=== PATIENT | female | born 2000 | race Hispanic/Latino ===

== ENCOUNTER 2024-07-01 14:42 | Emergency (ER) | payer OTHER ==
--- OUTSIDE RECORDS SUMMARY | 2024-07-01 14:51 | XMS REPORT | Continuity of Care Document ---
Author Name Unknown Address [address] [facility] [address] [place] [address] [facility] thconnect Address [address] [facility] [place] [address] Care Team Providers Care Hybrid Tester Name Role Phone PCP, NO Primary Care Physician Unavailab DEBRA Ramirez Attending Clinician Unavailable DEBRA SLOAN Attending Clinician Unavailable PRAFUL SHETTY Attending Clinician Unavailable Narinder CHRISTENSEN, Juan Katz Attending Clinician Unavailrene macedo Nurse, [facility] Attending Clinician Un available Debra Sloan MD Attending Clinician [phone] Doctor Unassigned, [place] Attending Clinician U navailable Pob, [facility] Main Attending Clinician Unavailabl e 2, [facility] Attending Clinician Unavailable Lori Amezcua DNP Attending Clinician [phone] LORI AMEZCUA Attending Clinician Unavailable ANTONIETA PASCUAL Attending Clinician Unavailable ANTONIETA PASCUAL Attending Clinician Unavailable ANTONIETA PASCUAL Attending Clinician Unavailable Ultrasound, Ang-Mfm Attending Clinician Unavaila Antonieta Randhawa MD Attending Clinician [phone] EDI SILVA Attending Clinician Unavailable EDI SILVA Attending Clinician Unavailable Edi Silva MD Attending Clinician [phone] Doctor Unassigned, [place] Attending Clinician U navailable 2, [facility] Attending Clinician Unavailable Razia Vargas Attending Clinician [phone] RAZIA HE Attending Clinician Unavailabl NIKOLAS Goodrich Attending Clinician Unavailable Lab, [facility] Attending Clinician Unavailable ASHOK TOSCANO Attending Clinician Unavailabl ASHOK Jim Attending Clinician Unavailabl GENARO Sharp Attending Clinician Unavailable MADDI DEMPSEY Attending Clinician Unavailable Maddi Way Attending Clinician [phone] JOHANNA ESQUIVEL Attending Clinician Unavailabl EDI Dos Santos Attending Clinician Unavail able Rickyjerod, Mrs. Abbott Attending Clinician Unava ilable CHITRA QUINTANA Attending Clinician UnavailCHITRA Kong Attending Clinician Unavaila ble Lab, Ang - Db Attending Clinician Unavailable Praful Shetty MD Attending Clinician [phone] SP RUSSO Attending Clinician Unavailable Sp Russo MD Attending Clinician [phone] Leona Calixto MA Attending Clinician UnavailMEKHI Ferrari III Attending Clinician Unavailtori Berry III, MD, James C Attending Clinician [phone] Unknown, Attending Attending Clinician Unavailab VI Ricks Attending Clinician Unavailable Vi Pedro PA-C Attending Clinician [phone] Dell Sin CRNA Attending Clinician [phone] Alexander Gold MD Attending Clinician [phone] Only, [facility] Test Attending Clinician Unavailable Pob, [facility] Main Attending Clinician Unavailabl e Ultrasound, [facility] M[facility] Attending Clinician Unavaila freddie Rider MD, Edel Attending Clinician [phone] Jocelynn Cornejo Attending Clinician [phone] ADOLFO SILVA Attending Clinician Unavail able Helen CHRISTENSEN, Goldie Katz Attending Clinician Unavailab Soledad Calixto Attending Clinician [phone] Benjy DAVILA, Viviana Attending Clinician [phone] VIVIANA POOL Attending Clinician Unavailable DEBRA SLOAN Admitting Clinician Unavailable PRAFUL SHETTY Admitting Clinician Unavailable Debra Sloan MD Admitting Clinician [phone] SP RUSSO Admitting Clinician Unavailable Praneeth DAVILA, Praful Avalos Admitting Clinician [phone] Payers Payer Name Policy Type Policy Number Effective Date Expirati on Date Source [facility] [id number] 2023 00:00:00 [employer] [id number] 2021 00:00:00 [facility] [id number] 2023 00:00:00 Problems Condition Name Condition Details Condition Category Status Onset Date Resolution Date Last Treatment Date Treating Clinician Comments Source Surgery, elective Surgery, elective Disease Active 2023-08 0 00:00: 00 [facility] Liveborn , of ortez , born in hospital by delivery Liveborn , of ortez , born in hospital by delivery Disease Active 2023-08 0 00:00: 00 [facility] 31 weeks gestation of 31 weeks gestation of Disease Active 04-28 00:00: 00 [facility] 39 weeks gestation of 39 weeks gestation of Disease Active 30 00:00: 00 [facility] High-risk in third trimester High-risk in third trimester Disease Active 5-02 00:00: 00 [facility] 14 weeks gestation of 14 weeks gestation of Disease Active 0 5-02 00:00: 00 [facility] Previous delivery affecting , antepartum Previous delivery affecting , antepartum Disease Active 5-02 00:00: 00 [facility] Obesity (BMI 30-39.9) Obesity (BMI 30-39.9) Disease Active 3-29 00:00: 00 [facility] Anemia of mother in , antepartum Anemia of mother in , antepartum Disease Active 2020-08 2-27 00:00: 00 [facility] Rectal hemorrhage Problem Active TMR Contusion of head Problem Inactiv e TMR Hemorrhoid s Problem Inactiv e TMR Neck pain Problem Inactiv e TMR Problem Inactiv e TMR No known active problems No known active problems Disease [facility] COVID-19 virus infection COVID-19 virus infection Disease Resolve d 9-03 00:00: 00 2024-01-28 00:00:00 2024-01-28 11:20:16 [facility] BMI 31.0-31.9, adult BMI 31.0-31.9, adult Disease Resolve d 0 1-03 00:00: 00 2023-12-30 00:00:00 2023-12-30 10:01:18 [facility] Nexplanon in place Nexplanon in place Disease Resolve d 0 2-03 00:00: 00 2023-11-26 00:00:00 2023-11-26 22:34:07 [facility] Encounter for initial prescripti on of implantabl e subdermal contracept aixa Encounter for initial prescripti on of implantabl e subdermal contracept aixa Disease Resolve d 2021-0 1-10 00:00: 00 2023-11-26 00:00:00 2023-11-26 22:34:09 [facility] Anemia of mother in , antepartum Anemia of mother in , antepartum Disease Resolve d 2020-08 2-27 00:00: 00 2021-10-01 00:00:00 2021-10-01 13:48:10 [facility] Liveborn infant, of ortez , born in hospital by delivery Liveborn , of ortez , born in hospital by delivery Disease Resolve d 2021-0 1-12 00:00: 00 2021-09-17 00:00:00 2021-09-17 10:29:28 [facility] 39 weeks gestation of 39 weeks gestation of Disease Resolve d 2021-0 1-10 00:00: 00 2021-09-17 00:00:00 2021-09-17 10:29:28 [facility] Encounter for supervisio n of normal first in third trimester Encounter for supervisio n of normal first in third trimester Disease Resolve d 2020-0 9-03 00:00: 00 2021-09-17 00:00:00 2021-09-17 10:29:28 [facility] E-coli UTI E-coli UTI Disease Resolve d 2020-08 0-01 00:00: 00 2021-09-08 00:00:00 2021-09-08 10:46:02 [facility] Allergies, Adverse Reactions, Alerts Allergy Name Allergy Type Status Severity Reaction(s) Onset Date Inactive Date Treating Clinician Comments Source NO KNOWN ALLERGIE S Drug Class Active [facility] Social History Social Habit Start Date Stop Date Quantity Comments Source ASSERTION 2023-10-03 00:00:00 [facility] of tobacco use TMR Alcoholic beverage intake 2024-06-21 00:00:00 2024-06-21 00:00:00 Lifetime non-drinker (finding) [facility] History of Social function 2023-12-30 00:00:00 2023-12-30 00:00:00 [facility] Alcohol intake 2023-11-26 00:00:00 2023-11-26 00:00:00 Lifetime non-drinker (finding) [facility] Exposure to SARS-CoV-2 (event) 2022-11-13 00:00:00 2022-11-23 13:38:00 Not sure [facility] Tobacco use and exposure 2022-07-16 00:00:00 2022-07-16 00:00:00 Smokeless tobacco non-user [facility] Sex Assigned At 2000 00:00:00 2000 00:00:00 Female TMR Smoking Status Start Date Stop Date Source Unknown if ever smoked [facility] Smokes tobacco daily (finding) 2023-12-26 23:02:00 TMR Never smoked tobacco [facility] Medications Ordered Medication Name Filled Medication Name Start Date Stop Date Current Medication? Ordering Clinician Indication Dosage Frequency Signature (SIG) Comments Components Source ibuprofen (IBU) tablet 800 mg 2023-08 14:00: 00 Yes 800mg 800 mg, Oral, Q8H ABX, First dose on Wed06/21/24 at 0900, Until Discontinu ed, Routine [facility] docusate (COLACE) capsule 200 mg 2023-08 14:00: 00 Yes 200mg 200 mg, Oral, DAILY, First dose on Wed06/21/24 at 0900, Until Discontinu ed, Routine [facility] vitamin w/FA tablet 2023-08 00:00: 00 Yes [id number] 1{tbl} Take 1 tablet by mouth in the morning. [facility] docusate 100 mg capsule 2023-08 00:00: 00 Yes [id number] 200mg Take 2 capsules by mouth once daily as needed for Constipati on. [facility] ferrous sulfate 325 mg (65 mg iron) tablet 2023-08 00:00: 00 Yes [id number] 325mg Take 1 tablet by mouth in the morning. [facility] ibuprofen 800 mg tablet 2023-08 00:00: 00 Yes [id number] 800mg Take 1 tablet by mouth every 8 (eight) hours as needed (pain). Take with food or milk. [facility] acetaminoph en 500 mg tablet 2023-08 00:00: 00 Yes [id number] 1000mg Take 2 tablets by mouth every 8 (eight) hours as needed for Pain. [facility] gabapentin 300 mg capsule 2023-08 00:00: 00 Yes [id number] 300mg Take 1 capsule by mouth in the morning and 1 capsule at noon and 1 capsule in the evening. [facility] oxyCODONE 5 mg immediate release tablet 2023-08 00:00: 00 06-29 04:59 :00 Yes [id number] 5mg Take 1 tablet by mouth every 6 (six) hours as needed (pain) for up to 7 days. Indication s: acute pain [facility] gabapentin (NEURONTIN) capsule 300 mg 2023-08 19:00: 00 Yes 300mg 300 mg, Oral, TID, First dose on Wed06/20/24 at 1400, Until Discontinu ed, Routine [facility] simethicone (GAS RELIEF (SIMETHICON E)) chewable tablet 160 mg 2023-08 19:00: 00 Yes 160mg 160 mg, Oral, TID, First dose on Wed06/20/24 at 1400, Until Discontinu ed, Routine [facility] acetaminoph en (TYLENOL) tablet 1,000 mg 2023-08 18:00: 00 Yes 1000mg 1,000 mg, Oral, Q8H ABX, First dose on Wed06/20/24 at 1300, Until Discontinu ed, Routine [facility] lactated ringers IV infusion 1,000 mL 2023-08 17:15: 00 06-20 17:52 :49 No 1000mL at 125 mL/hr, 1,000 mL, IV Infusion, ONCE, 1 dose, On Wed06/20/24 at 1215, Routine [facility] oxyCODONE immediate release tablet 5 mg 2023-08 17:02: 24 Yes 5mg 5 mg, Oral, Q6HPRN, Starting on Wed06/20/24 at 1202, Until Discontinu ed, Routine, Pain (scale 7-10), economics faculty member approving Restricted medication : DEBRA SLOAN [facility] diphenhydrA MINE (BENADRYL) injection 25 mg 2023-08 16:45: 49 Yes 25mg [facility] diphenhydrA MINE (BENADRYL) tablet 25 mg 2023-08 16:45: 49 Yes 25mg [facility] ondansetron (ZOFRAN (PF)) injection 4 mg 2023-08 16:45: 49 Yes 4mg [facility] bisacodyL (DULCOLAX) suppository 10 mg 2023-08 16:45: 49 Yes 10mg [facility] magnesium hydroxide (MILK OF MAGNESIA) 400 mg/5 mL suspension 30 mL 2023-08 16:45: 49 Yes 30mL [facility] lactated ringers IV infusion 1,000 mL 2023-08 16:45: 49 Yes 1000mL [facility] sodium chloride 0.9 % irrigation solution 2023-08 14:20: 00 Yes PRN, Starting on Wed06/20/24 at 0920, Until Discontinu ed, Intra-op [facility] acetaminoph en (TYLENOL) tablet 650 mg 2023-08 11:15: 00 06-20 12:02 :00 No 650mg 650 mg, Oral, ONCE, 1 dose, On Wed06/20/24 at 0615, Routine [facility] lactated ringers IV infusion 1,000 mL 2023-08 11:15: 00 06-20 17:02 :43 No 1000mL at 125 mL/hr, 1,000 mL, IV Infusion, CONTINUOUS , Starting on Wed06/20/24 at 0615, Until Wed06/20/24 at 1202, Routine [facility] ceFAZolin (ANCEF) 2,000 mg in NaCl 0.9% (NS) 100 mL MINI-BAG 2023-08 11:09: 55 06-20 13:18 :00 No 2000mg 2,000 mg, IV Piggyback, O.R. HOLDING ONCE, 1 dose, Starting on Wed06/20/24 at 0609, Until Wed06/20/24 at 0818, Administer over 30 Minutes, 100 mL, Reason for Anti-Infec tive: Surgical Prophylaxi s, Surgical Prophylaxi s: DROP TESTER, Duration of therapy: within 24 hours of surgery [facility] sodium citrate-cit que acid (BICITRA) 500-334 mg/5 mL solution 30 mL 2023-08 11:09: 55 06-20 12:48 :00 No 30mL 30 mL, Oral, PRE-PROCED URE ONCE, 1 dose, Starting on Wed06/20/24 at 0609, Until Wed06/20/24 at 0748, Routine, Surgery/Pr ocedure [facility] ferrous sulfate 325 mg (65 mg iron) tablet 05-12 00:00: 00 06-21 00:00 :00 No [id number] 325mg Take 1 tablet by mouth in the morning. [facility] vit w/iron fumarate and FA ( VITAMIN WITH MINERALS) tablet 12-29 00:00: 00 06-21 00:00 :00 No [id number] 1{tbl} Take 1 tablet by mouth in the morning. [facility] Iron Pills 12-25 23:04: 00 No TMR Vit#96/Ferr ous Fum/Fa ( Vitamin) 1 Each TABLET 12-25 23:04: 00 No 1 Daily TMR vits62/FA/o m3/dha/epa ( GUMMY ORAL) 11-25 14:41: 37 12-29 00:00 :00 No Take by mouth. [facility] etonogestre L (NEXPLANON) implant 68 mg 11-23 20:00: 00 11-23 19:03 :00 No [id number] 68mg [facility] CITRANATAL ASSURE 35 mg iron-1 mg -50 mg-300 mg combo pack 09-15 00:00: 00 Yes [facility] LO LOESTRIN 09-08-0909-15 00:00: 00 No CITRANATAL ASSURE 35 mg iron-1 mg -50 mg-300 mg combo pack 09-15 00:00: 00 11-25 00:00 :00 No [facility] ibuprofen 800 mg tablet 2021-08 00:00: 00 11-25 00:00 :00 No Univers [facility] etonogestre L (NEXPLANON) implant 68 mg 10-02 21:15: 00 10-02 20:06 :00 No [id number] 68mg Univer [facility] vitamin w/FA tablet 09-12 00:00: 00 Yes [id number] 1{tbl} Take 1 tablet by mouth daily. [facility] acetaminoph en 325 mg tablet 09-12 00:00: 00 11-25 00:00 :00 No [id number] 650mg Take 2 tablets by mouth every 6 (six) hours as needed for Pain (scale 1-3) or Pain (scale 4-6). [facility] vitamin w/FA tablet 09-12 00:00: 00 11-25 00:00 :00 No [id number] 1{tbl} Take 1 tablet by mouth daily. [facility] ferrous sulfate 325 mg (65 mg iron) tablet 09-12 00:00: 00 11-25 00:00 :00 No [id number] 325mg Take 1 tablet by mouth 2 (two) times daily. [facility] ibuprofen 600 mg tablet 09-12 00:00: 00 09-11 00:00 :00 No [id number] 600mg Take 1 tablet by mouth every 6 (six) hours as needed (Pain). Take with food or milk. [facility] docusate calcium 240 mg capsule 09-12 00:00: 00 10-01 00:00 :00 No [id number] 240mg Take 1 capsule by mouth once daily as needed for Constipati on. [facility] ferrous sulfate (IRON, FERROUS SULFATE,) 325 mg (65 mg iron) tablet 2020-0816 00:00: 00 Yes [id number] 325mg Take 1 tablet by mouth 2 (two) times daily. [facility] cephALEXin (KEFLEX) capsule 500 mg 05-22 21:00: 00 05-22 20:18 :00 No 500mg 500 mg, Oral, ONCE, 1 dose, On Maryann 05/22/21 at 1600, GHANSHYAM
Re ason for Anti-Infec tive: Documented Infection< br>Documen chucho Infection Site: Urine
D uration of Therapy: 10 days [facility] cephALEXin (KEFLEX) 500 mg capsule 05-22 00:00: 00 06-02 04:59 :00 No [id number] 500mg Take 1 capsule by mouth 3 (three) times daily for 10 days. [facility] 25/iron fum/folic/d springer (-1 ORAL) 05-02 17:49: 16 Yes Take by mouth. [facility] 25/iron fum/folic/d springer (-1 ORAL) 05-02 12:49: 16 Yes Take by mouth. [facility] 25/iron fum/folic/d springer (-1 ORAL) 04-22 16:55: 54 Yes Take by mouth. [facility] Immunizations Ordered Immunization Name Filled Immunization Name Date Status Comments Source RSV, Bivalent Protein Subunit RSVprdF 2024-05-12 00:00:00 Completed [facility] RSV, Bivalent Protein Subunit RSVprdF 2024-05-12 00:00:00 Completed [facility] Flu Injectable MDCK Pres-Free (FLUCELVAX) 2024-04-28 00:00:00 Completed [facility] TDAP 2024-04-28 00:00:00 Completed Flu Injectable MDCK Pres-Free (FLUCELVAX) 2024-04-28 00:00:00 Completed [facility] TDAP 2024-04-28 00:00:00 Completed TDAP 2021-08-08 00:00:00 Completed [facility] Influenza Virus Vaccine Quad IM, Preserv and ABX Free 6 MO-64 YRS 2021-08-08 00:00:00 Completed [facility] TDAP 2021-08-08 00:00:00 Completed [facility] Influenza Virus Vaccine Quad IM, Preserv and ABX Free 6 MO-64 YRS 2021-08-08 00:00:00 Completed [facility] TDAP 2021-08-08 00:00:00 Completed [facility] Influenza Virus Vaccine Quad IM, Preserv and ABX Free 6 MO-64 YRS 2021-08-08 00:00:00 Completed [facility] TDAP 2021-08-08 00:00:00 Completed [facility] Influenza Virus Vaccine Quad IM, Preserv and ABX Free 6 MO-64 YRS 2021-08-08 00:00:00 Completed [facility] TDAP 2021-08-08 00:00:00 Completed [facility] Influenza Virus Vaccine Quad IM, Preserv and ABX Free 6 MO-64 YRS 2021-08-08 00:00:00 Completed [facility] TDAP 2021-08-08 00:00:00 Completed [facility] Influenza Virus Vaccine Quad IM, Preserv and ABX Free 6 MO-64 YRS 2021-08-08 00:00:00 Completed [facility] TDAP 2021-08-08 00:00:00 Completed [facility] Influenza Virus Vaccine Quad IM, Preserv and ABX Free 6 MO-64 YRS 2021-08-08 00:00:00 Completed [facility] TDAP 2021-08-08 00:00:00 Completed [facility] Influenza Virus Vaccine Quad IM, Preserv and ABX Free 6 MO-64 YRS 2021-08-08 00:00:00 Completed [facility] TDAP 2021-08-08 00:00:00 Completed [facility] Influenza Virus Vaccine Quad IM, Preserv and ABX Free 6 MO-64 YRS (FLUCELVAX) 2021-08-08 00:00:00 Completed TDAP 2021-08-08 00:00:00 Completed [facility] Influenza Virus Vaccine Quad IM, Preserv and ABX Free 6 MO-64 YRS (FLUCELVAX) 2021-08-08 00:00:00 Completed TDAP 2021-08-08 00:00:00 Completed [facility] Influenza Virus Vaccine Quad IM, Preserv and ABX Free 6 MO-64 YRS 2021-08-08 00:00:00 Completed [facility] TDAP 2021-08-08 00:00:00 Completed [facility] Influenza Virus Vaccine Quad IM, Preserv and ABX Free 6 MO-64 YRS 2021-08-08 00:00:00 Completed [facility] TDAP 2021-08-08 00:00:00 Completed [facility] Influenza Virus Vaccine Quad IM, Preserv and ABX Free 6 MO-64 YRS 2021-08-08 00:00:00 Completed [facility] TDAP 2021-08-08 00:00:00 Completed [facility] Influenza Virus Vaccine Quad IM, Preserv and ABX Free 6 MO-64 YRS 2021-08-08 00:00:00 Completed [facility] TDAP 2021-08-08 00:00:00 Completed [facility] Influenza Virus Vaccine Quad IM, Preserv and ABX Free 6 MO-64 YRS 2021-08-08 00:00:00 Completed [facility] TDAP 2021-08-08 00:00:00 Completed [facility] Influenza Virus Vaccine Quad IM, Preserv and ABX Free 6 MO-64 YRS 2021-08-08 00:00:00 Completed [facility] TDAP 2021-08-08 00:00:00 Completed [facility] Influenza Virus Vaccine Quad IM, Preserv and ABX Free 6 MO-64 YRS 2021-08-08 00:00:00 Completed [facility] TDAP 2021-08-08 00:00:00 Completed [facility] Influenza Virus Vaccine Quad IM, Preserv and ABX Free 6 MO-64 YRS 2021-08-08 00:00:00 Completed [facility] TDAP 2021-08-08 00:00:00 Completed [facility] Influenza Virus Vaccine Quad IM, Preserv and ABX Free 6 MO-64 YRS 2021-08-08 00:00:00 Completed [facility] TDAP 2021-08-08 00:00:00 Completed [facility] Influenza Virus Vaccine Quad IM, Preserv and ABX Free 6 MO-64 YRS 2021-08-08 00:00:00 Completed [facility] TDAP 2021-08-08 00:00:00 Completed [facility] Influenza Virus Vaccine Quad IM, Preserv and ABX Free 6 MO-64 YRS 2021-08-08 00:00:00 Completed [facility] TDAP 2021-08-08 00:00:00 Completed [facility] Influenza Virus Vaccine Quad IM, Preserv and ABX Free 6 MO-64 YRS 2021-08-08 00:00:00 Completed [facility] TDAP 2021-08-08 00:00:00 Completed [facility] Influenza Virus Vaccine Quad IM, Preserv and ABX Free 6 MO-64 YRS 2021-08-08 00:00:00 Completed [facility] TDAP 2021-08-08 00:00:00 Completed [facility] Influenza Virus Vaccine Quad IM, Preserv and ABX Free 6 MO-64 YRS 2021-08-08 00:00:00 Completed [facility] TDAP 2021-08-08 00:00:00 Completed [facility] Influenza Virus Vaccine Quad IM, Preserv and ABX Free 6 MO-64 YRS 2021-08-08 00:00:00 Completed [facility] TDAP 2021-08-08 00:00:00 Completed [facility] Influenza Virus Vaccine Quad IM, Preserv and ABX Free 6 MO-64 YRS 2021-08-08 00:00:00 Completed [facility] TDAP 2021-08-08 00:00:00 Completed [facility] Influenza Virus Vaccine Quad IM, Preserv and ABX Free 6 MO-64 YRS 2021-08-08 00:00:00 Completed [facility] Influenza, seasonal, inj 2019-07-13 00:00:00 Completed Influenza Virus Vaccine - Whole 2019-07-13 00:00:00 Completed [facility] Influenza Virus Vaccine - Whole 2019-07-13 00:00:00 Completed [facility] Influenza Virus Vaccine - Whole 2019-07-13 00:00:00 Completed [facility] Influenza Virus Vaccine - Whole 2019-07-13 00:00:00 Completed [facility] Influenza Virus Vaccine - Whole 2019-07-13 00:00:00 Completed [facility] Influenza Virus Vaccine - Whole 2019-07-13 00:00:00 Completed [facility] Influenza Virus Vaccine - Whole 2019-07-13 00:00:00 Completed [facility] Influenza Virus Vaccine - Whole 2019-07-13 00:00:00 Completed [facility] Influenza Virus Vaccine - Whole 2019-07-13 00:00:00 Completed Influenza Virus Vaccine - Whole 2019-07-13 00:00:00 Completed Influenza Virus Vaccine - Whole 2019-07-13 00:00:00 Completed [facility] Influenza Virus Vaccine - Whole 2019-07-13 00:00:00 Completed [facility] Influenza Virus Vaccine - Whole 2019-07-13 00:00:00 Completed [facility] Influenza Virus Vaccine - Whole 2019-07-13 00:00:00 Completed [facility] Influenza Virus Vaccine - Whole 2019-07-13 00:00:00 Completed [facility] Influenza Virus Vaccine - Whole 2019-07-13 00:00:00 Completed [facility] [facility] Influenza Virus Vaccine - Whole 2019-07-13 00:00:00 Completed [facility] Influenza Virus Vaccine - Whole 2019-07-13 00:00:00 Completed [facility] Meningococcal Polysaccharide (groups A, C, Y and W-135) conjugate vaccine (MCV4P) 2014-07-09 00:00:00 Completed [facility] TDAP 2014-07-09 00:00:00 Completed [facility] Meningococcal Polysaccharide (groups A, C, Y and W-135) conjugate vaccine (MCV4P) 2014-07-09 00:00:00 Completed [facility] TDAP 2014-07-09 00:00:00 Completed [facility] Meningococcal Polysaccharide (groups A, C, Y and W-135) conjugate vaccine (MCV4P) 2014-07-09 00:00:00 Completed [facility] TDAP 2014-07-09 00:00:00 Completed [facility] Meningococcal Polysaccharide (groups A, C, Y and W-135) conjugate vaccine (MCV4P) 2014-07-09 00:00:00 Completed [facility] TDAP 2014-07-09 00:00:00 Completed [facility] Meningococcal Polysaccharide (groups A, C, Y and W-135) conjugate vaccine (MCV4P) 2014-07-09 00:00:00 Completed [facility] TDAP 2014-07-09 00:00:00 Completed [facility] Meningococcal Polysaccharide (groups A, C, Y and W-135) conjugate vaccine (MCV4P) 2014-07-09 00:00:00 Completed [facility] TDAP 2014-07-09 00:00:00 Completed [facility] Meningococcal Polysaccharide (groups A, C, Y and W-135) conjugate vaccine (MCV4P) 2014-07-09 00:00:00 Completed [facility] TDAP 2014-07-09 00:00:00 Completed [facility] Meningococcal Polysaccharide (groups A, C, Y and W-135) conjugate vaccine (MCV4P) 2014-07-09 00:00:00 Completed [facility] TDAP 2014-07-09 00:00:00 Completed [facility] Meningococcal Polysaccharide (groups A, C, Y and W-135) conjugate vaccine (MCV4P) 2014-07-09 00:00:00 Completed TDAP 2014-07-09 00:00:00 Completed Meningococcal Polysaccharide (groups A, C, Y and W-135) conjugate vaccine (MCV4P) 2014-07-09 00:00:00 Completed TDAP 2014-07-09 00:00:00 Completed Meningococcal Polysaccharide (groups A, C, Y and W-135) conjugate vaccine (MCV4P) 2014-07-09 00:00:00 Completed [facility] TDAP 2014-07-09 00:00:00 Completed [facility] Meningococcal Polysaccharide (groups A, C, Y and W-135) conjugate vaccine (MCV4P) 2014-07-09 00:00:00 Completed [facility] TDAP 2014-07-09 00:00:00 Completed [facility] Meningococcal Polysaccharide (groups A, C, Y and W-135) conjugate vaccine (MCV4P) 2014-07-09 00:00:00 Completed [facility] TDAP 2014-07-09 00:00:00 Completed [facility] Meningococcal Polysaccharide (groups A, C, Y and W-135) conjugate vaccine (MCV4P) 2014-07-09 00:00:00 Completed [facility] TDAP 2014-07-09 00:00:00 Completed [facility] Meningococcal Polysaccharide (groups A, C, Y and W-135) conjugate vaccine (MCV4P) 2014-07-09 00:00:00 Completed [facility] TDAP 2014-07-09 00:00:00 Completed [facility] Meningococcal Polysaccharide (groups A, C, Y and W-135) conjugate vaccine (MCV4P) 2014-07-09 00:00:00 Completed [facility] TDAP 2014-07-09 00:00:00 Completed [facility] Meningococcal Polysaccharide (groups A, C, Y and W-135) conjugate vaccine (MCV4P) 2014-07-09 00:00:00 Completed [facility] TDAP 2014-07-09 00:00:00 Completed [facility] Meningococcal Polysaccharide (groups A, C, Y and W-135) conjugate vaccine (MCV4P) 2014-07-09 00:00:00 Completed [facility] TDAP 2014-07-09 00:00:00 Completed [facility] HEPATITIS A 2008-11-01 00:00:00 Completed [facility] Hep B, Adol or Pedi Dosage 2008-11-01 00:00:00 Completed [facility] MMR 2008-11-01 00:00:00 Completed [facility] IPV 2008-11-01 00:00:00 Completed [facility] TD Pres-Free 2008-11-01 00:00:00 Completed [facility] Varicella (varivax)(chicken pox) 2008-11-01 00:00:00 Completed [facility] HEPATITIS A 2008-11-01 00:00:00 Completed [facility] Hep B, Adol or Pedi Dosage 2008-11-01 00:00:00 Completed [facility] MMR 2008-11-01 00:00:00 Completed [facility] IPV 2008-11-01 00:00:00 Completed [facility] TD Pres-Free 2008-11-01 00:00:00 Completed [facility] Varicella (varivax)(chicken pox) 2008-11-01 00:00:00 Completed [facility] HEPATITIS A 2008-11-01 00:00:00 Completed [facility] Hep B, Adol or Pedi Dosage 2008-11-01 00:00:00 Completed [facility] MMR 2008-11-01 00:00:00 Completed [facility] IPV 2008-11-01 00:00:00 Completed [facility] TD Pres-Free 2008-11-01 00:00:00 Completed [facility] Varicella (varivax)(chicken pox) 2008-11-01 00:00:00 Completed [facility] HEPATITIS A 2008-11-01 00:00:00 Completed [facility] Hep B, Adol or Pedi Dosage 2008-11-01 00:00:00 Completed [facility] MMR 2008-11-01 00:00:00 Completed [facility] IPV 2008-11-01 00:00:00 Completed [facility] TD Pres-Free 2008-11-01 00:00:00 Completed [facility] Varicella (varivax)(chicken pox) 2008-11-01 00:00:00 Completed [facility] HEPATITIS A 2008-11-01 00:00:00 Completed [facility] Hep B, Adol or Pedi Dosage 2008-11-01 00:00:00 Completed [facility] MMR 2008-11-01 00:00:00 Completed [facility] IPV 2008-11-01 00:00:00 Completed [facility] TD Pres-Free 2008-11-01 00:00:00 Completed [facility] Varicella (varivax)(chicken pox) 2008-11-01 00:00:00 Completed [facility] HEPATITIS A 2008-11-01 00:00:00 Completed [facility] Hep B, Adol or Pedi Dosage 2008-11-01 00:00:00 Completed [facility] MMR 2008-11-01 00:00:00 Completed [facility] IPV 2008-11-01 00:00:00 Completed [facility] TD Pres-Free 2008-11-01 00:00:00 Completed [facility] Varicella (varivax)(chicken pox) 2008-11-01 00:00:00 Completed [facility] HEPATITIS A 2008-11-01 00:00:00 Completed [facility] Hep B, Adol or Pedi Dosage 2008-11-01 00:00:00 Completed [facility] MMR 2008-11-01 00:00:00 Completed [facility] IPV 2008-11-01 00:00:00 Completed [facility] TD Pres-Free 2008-11-01 00:00:00 Completed [facility] Varicella (varivax)(chicken pox) 2008-11-01 00:00:00 Completed [facility] HEPATITIS A 2008-11-01 00:00:00 Completed [facility] Hep B, Adol or Pedi Dosage 2008-11-01 00:00:00 Completed [facility] MMR 2008-11-01 00:00:00 Completed [facility] IPV 2008-11-01 00:00:00 Completed [facility] TD Pres-Free 2008-11-01 00:00:00 Completed [facility] Varicella (varivax)(chicken pox) 2008-11-01 00:00:00 Completed [facility] HEPATITIS A 2008-11-01 00:00:00 Completed Hep B, Adol or Pedi Dosage 2008-11-01 00:00:00 Completed MMR 2008-11-01 00:00:00 Completed IPV 2008-11-01 00:00:00 Completed TD Pres-Free 2008-11-01 00:00:00 Completed Varicella (varivax)(chicken pox) 2008-11-01 00:00:00 Completed HEPATITIS A 2008-11-01 00:00:00 Completed Hep B, Adol or Pedi Dosage 2008-11-01 00:00:00 Completed MMR 2008-11-01 00:00:00 Completed IPV 2008-11-01 00:00:00 Completed TD Pres-Free 2008-11-01 00:00:00 Completed Varicella (varivax)(chicken pox) 2008-11-01 00:00:00 Completed HEPATITIS A 2008-11-01 00:00:00 Completed [facility] Hep B, Adol or Pedi Dosage 2008-11-01 00:00:00 Completed [facility] MMR 2008-11-01 00:00:00 Completed [facility] IPV 2008-11-01 00:00:00 Completed [facility] TD Pres-Free 2008-11-01 00:00:00 Completed [facility] Varicella (varivax)(chicken pox) 2008-11-01 00:00:00 Completed [facility] HEPATITIS A 2008-11-01 00:00:00 Completed [facility] Hep B, Adol or Pedi Dosage 2008-11-01 00:00:00 Completed [facility] MMR 2008-11-01 00:00:00 Completed [facility] IPV 2008-11-01 00:00:00 Completed [facility] TD Pres-Free 2008-11-01 00:00:00 Completed [facility] Varicella (varivax)(chicken pox) 2008-11-01 00:00:00 Completed [facility] HEPATITIS A 2008-11-01 00:00:00 Completed [facility] Hep B, Adol or Pedi Dosage 2008-11-01 00:00:00 Completed [facility] MMR 2008-11-01 00:00:00 Completed [facility] IPV 2008-11-01 00:00:00 Completed [facility] TD Pres-Free 2008-11-01 00:00:00 Completed [facility] Varicella (varivax)(chicken pox) 2008-11-01 00:00:00 Completed [facility] HEPATITIS A 2008-11-01 00:00:00 Completed [facility] Hep B, Adol or Pedi Dosage 2008-11-01 00:00:00 Completed [facility] MMR 2008-11-01 00:00:00 Completed [facility] IPV 2008-11-01 00:00:00 Completed [facility] TD Pres-Free 2008-11-01 00:00:00 Completed [facility] Varicella (varivax)(chicken pox) 2008-11-01 00:00:00 Completed [facility] HEPATITIS A 2008-11-01 00:00:00 Completed [facility] Hep B, Adol or Pedi Dosage 2008-11-01 00:00:00 Completed [facility] MMR 2008-11-01 00:00:00 Completed [facility] IPV 2008-11-01 00:00:00 Completed [facility] TD Pres-Free 2008-11-01 00:00:00 Completed [facility] Varicella (varivax)(chicken pox) 2008-11-01 00:00:00 Completed [facility] HEPATITIS A 2008-11-01 00:00:00 Completed [facility] Hep B, Adol or Pedi Dosage 2008-11-01 00:00:00 Completed [facility] MMR 2008-11-01 00:00:00 Completed [facility] IPV 2008-11-01 00:00:00 Completed [facility] TD Pres-Free 2008-11-01 00:00:00 Completed [facility] Varicella (varivax)(chicken pox) 2008-11-01 00:00:00 Completed [facility] HEPATITIS A 2008-11-01 00:00:00 Completed [facility] Hep B, Adol or Pedi Dosage 2008-11-01 00:00:00 Completed [facility] MMR 2008-11-01 00:00:00 Completed [facility] IPV 2008-11-01 00:00:00 Completed [facility] TD Pres-Free 2008-11-01 00:00:00 Completed [facility] Varicella (varivax)(chicken pox) 2008-11-01 00:00:00 Completed [facility] HEPATITIS A 2008-11-01 00:00:00 Completed [facility] Hep B, Adol or Pedi Dosage 2008-11-01 00:00:00 Completed [facility] MMR 2008-11-01 00:00:00 Completed [facility] IPV 2008-11-01 00:00:00 Completed [facility] TD Pres-Free 2008-11-01 00:00:00 Completed [facility] Varicella (varivax)(chicken pox) 2008-11-01 00:00:00 Completed [facility] DTaP, Unspecified Formulation 2005-04-01 00:00:00 Completed [facility] HEPATITIS A 2005-04-01 00:00:00 Completed [facility] Hep B, Adol or Pedi Dosage 2005-04-01 00:00:00 Completed [facility] HIB 4 Dose Schedule 2005-04-01 00:00:00 Completed [facility] MMR 2005-04-01 00:00:00 Completed [facility] Pneumococcal 7 Conjugate, PCV7 (Prevnar7) 2005-04-01 00:00:00 Completed [facility] IPV 2005-04-01 00:00:00 Completed [facility] Varicella (varivax)(chicken pox) 2005-04-01 00:00:00 Completed [facility] DTaP, Unspecified Formulation 2005-04-01 00:00:00 Completed [facility] HEPATITIS A 2005-04-01 00:00:00 Completed [facility] Hep B, Adol or Pedi Dosage 2005-04-01 00:00:00 Completed [facility] HIB 4 Dose Schedule 2005-04-01 00:00:00 Completed [facility] MMR 2005-04-01 00:00:00 Completed [facility] Pneumococcal 7 Conjugate, PCV7 (Prevnar7) 2005-04-01 00:00:00 Completed [facility] IPV 2005-04-01 00:00:00 Completed [facility] Varicella (varivax)(chicken pox) 2005-04-01 00:00:00 Completed [facility] DTaP, Unspecified Formulation 2005-04-01 00:00:00 Completed [facility] HEPATITIS A 2005-04-01 00:00:00 Completed [facility] Hep B, Adol or Pedi Dosage 2005-04-01 00:00:00 Completed [facility] HIB 4 Dose Schedule 2005-04-01 00:00:00 Completed [facility] MMR 2005-04-01 00:00:00 Completed [facility] Pneumococcal 7 Conjugate, PCV7 (Prevnar7) 2005-04-01 00:00:00 Completed [facility] IPV 2005-04-01 00:00:00 Completed [facility] Varicella (varivax)(chicken pox) 2005-04-01 00:00:00 Completed [facility] DTaP, Unspecified Formulation 2005-04-01 00:00:00 Completed [facility] HEPATITIS A 2005-04-01 00:00:00 Completed [facility] Hep B, Adol or Pedi Dosage 2005-04-01 00:00:00 Completed [facility] HIB 4 Dose Schedule 2005-04-01 00:00:00 Completed [facility] MMR 2005-04-01 00:00:00 Completed [facility] Pneumococcal 7 Conjugate, PCV7 (Prevnar7) 2005-04-01 00:00:00 Completed [facility] IPV 2005-04-01 00:00:00 Completed [facility] Varicella (varivax)(chicken pox) 2005-04-01 00:00:00 Completed [facility] DTaP, Unspecified Formulation 2005-04-01 00:00:00 Completed [facility] HEPATITIS A 2005-04-01 00:00:00 Completed [facility] Hep B, Adol or Pedi Dosage 2005-04-01 00:00:00 Completed [facility] HIB 4 Dose Schedule 2005-04-01 00:00:00 Completed [facility] MMR 2005-04-01 00:00:00 Completed [facility] Pneumococcal 7 Conjugate, PCV7 (Prevnar7) 2005-04-01 00:00:00 Completed [facility] IPV 2005-04-01 00:00:00 Completed [facility] Varicella (varivax)(chicken pox) 2005-04-01 00:00:00 Completed [facility] DTaP, Unspecified Formulation 2005-04-01 00:00:00 Completed [facility] HEPATITIS A 2005-04-01 00:00:00 Completed [facility] Hep B, Adol or Pedi Dosage 2005-04-01 00:00:00 Completed [facility] HIB 4 Dose Schedule 2005-04-01 00:00:00 Completed [facility] MMR 2005-04-01 00:00:00 Completed [facility] Pneumococcal 7 Conjugate, PCV7 (Prevnar7) 2005-04-01 00:00:00 Completed [facility] IPV 2005-04-01 00:00:00 Completed [facility] Varicella (varivax)(chicken pox) 2005-04-01 00:00:00 Completed [facility] DTaP, Unspecified Formulation 2005-04-01 00:00:00 Completed [facility] HEPATITIS A 2005-04-01 00:00:00 Completed [facility] Hep B, Adol or Pedi Dosage 2005-04-01 00:00:00 Completed [facility] HIB 4 Dose Schedule 2005-04-01 00:00:00 Completed [facility] MMR 2005-04-01 00:00:00 Completed [facility] Pneumococcal 7 Conjugate, PCV7 (Prevnar7) 2005-04-01 00:00:00 Completed [facility] IPV 2005-04-01 00:00:00 Completed [facility] Varicella (varivax)(chicken pox) 2005-04-01 00:00:00 Completed [facility] DTaP, Unspecified Formulation 2005-04-01 00:00:00 Completed [facility] HEPATITIS A 2005-04-01 00:00:00 Completed [facility] Hep B, Adol or Pedi Dosage 2005-04-01 00:00:00 Completed [facility] HIB 4 Dose Schedule 2005-04-01 00:00:00 Completed [facility] MMR 2005-04-01 00:00:00 Completed [facility] Pneumococcal 7 Conjugate, PCV7 (Prevnar7) 2005-04-01 00:00:00 Completed [facility] IPV 2005-04-01 00:00:00 Completed [facility] Varicella (varivax)(chicken pox) 2005-04-01 00:00:00 Completed [facility] DTaP, Unspecified Formulation 2005-04-01 00:00:00 Completed HEPATITIS A 2005-04-01 00:00:00 Completed Hep B, Adol or Pedi Dosage 2005-04-01 00:00:00 Completed HIB 4 Dose Schedule 2005-04-01 00:00:00 Completed MMR 2005-04-01 00:00:00 Completed Pneumococcal 7 Conjugate, PCV7 (Prevnar7) 2005-04-01 00:00:00 Completed IPV 2005-04-01 00:00:00 Completed Varicella (varivax)(chicken pox) 2005-04-01 00:00:00 Completed DTaP, Unspecified Formulation 2005-04-01 00:00:00 Completed HEPATITIS A 2005-04-01 00:00:00 Completed Hep B, Adol or Pedi Dosage 2005-04-01 00:00:00 Completed HIB 4 Dose Schedule 2005-04-01 00:00:00 Completed MMR 2005-04-01 00:00:00 Completed Pneumococcal 7 Conjugate, PCV7 (Prevnar7) 2005-04-01 00:00:00 Completed IPV 2005-04-01 00:00:00 Completed Varicella (varivax)(chicken pox) 2005-04-01 00:00:00 Completed DTaP, Unspecified Formulation 2005-04-01 00:00:00 Completed [facility] HEPATITIS A 2005-04-01 00:00:00 Completed [facility] Hep B, Adol or Pedi Dosage 2005-04-01 00:00:00 Completed [facility] HIB 4 Dose Schedule 2005-04-01 00:00:00 Completed [facility] MMR 2005-04-01 00:00:00 Completed [facility] Pneumococcal 7 Conjugate, PCV7 (Prevnar7) 2005-04-01 00:00:00 Completed [facility] IPV 2005-04-01 00:00:00 Completed [facility] Varicella (varivax)(chicken pox) 2005-04-01 00:00:00 Completed [facility] DTaP, Unspecified Formulation 2005-04-01 00:00:00 Completed [facility] HEPATITIS A 2005-04-01 00:00:00 Completed [facility] Hep B, Adol or Pedi Dosage 2005-04-01 00:00:00 Completed [facility] HIB 4 Dose Schedule 2005-04-01 00:00:00 Completed [facility] MMR 2005-04-01 00:00:00 Completed [facility] Pneumococcal 7 Conjugate, PCV7 (Prevnar7) 2005-04-01 00:00:00 Completed [facility] IPV 2005-04-01 00:00:00 Completed [facility] Varicella (varivax)(chicken pox) 2005-04-01 00:00:00 Completed [facility] DTaP, Unspecified Formulation 2005-04-01 00:00:00 Completed [facility] HEPATITIS A 2005-04-01 00:00:00 Completed [facility] Hep B, Adol or Pedi Dosage 2005-04-01 00:00:00 Completed [facility] HIB 4 Dose Schedule 2005-04-01 00:00:00 Completed [facility] MMR 2005-04-01 00:00:00 Completed [facility] Pneumococcal 7 Conjugate, PCV7 (Prevnar7) 2005-04-01 00:00:00 Completed [facility] IPV 2005-04-01 00:00:00 Completed [facility] Varicella (varivax)(chicken pox) 2005-04-01 00:00:00 Completed [facility] DTaP, Unspecified Formulation 2005-04-01 00:00:00 Completed [facility] HEPATITIS A 2005-04-01 00:00:00 Completed [facility] Hep B, Adol or Pedi Dosage 2005-04-01 00:00:00 Completed [facility] HIB 4 Dose Schedule 2005-04-01 00:00:00 Completed [facility] MMR 2005-04-01 00:00:00 Completed [facility] Pneumococcal 7 Conjugate, PCV7 (Prevnar7) 2005-04-01 00:00:00 Completed [facility] IPV 2005-04-01 00:00:00 Completed [facility] Varicella (varivax)(chicken pox) 2005-04-01 00:00:00 Completed [facility] DTaP, Unspecified Formulation 2005-04-01 00:00:00 Completed [facility] HEPATITIS A 2005-04-01 00:00:00 Completed [facility] Hep B, Adol or Pedi Dosage 2005-04-01 00:00:00 Completed [facility] HIB 4 Dose Schedule 2005-04-01 00:00:00 Completed [facility] MMR 2005-04-01 00:00:00 Completed [facility] Pneumococcal 7 Conjugate, PCV7 (Prevnar7) 2005-04-01 00:00:00 Completed [facility] IPV 2005-04-01 00:00:00 Completed [facility] Varicella (varivax)(chicken pox) 2005-04-01 00:00:00 Completed [facility] DTaP, Unspecified Formulation 2005-04-01 00:00:00 Completed [facility] HEPATITIS A 2005-04-01 00:00:00 Completed [facility] Hep B, Adol or Pedi Dosage 2005-04-01 00:00:00 Completed [facility] HIB 4 Dose Schedule 2005-04-01 00:00:00 Completed [facility] MMR 2005-04-01 00:00:00 Completed [facility] Pneumococcal 7 Conjugate, PCV7 (Prevnar7) 2005-04-01 00:00:00 Completed [facility] IPV 2005-04-01 00:00:00 Completed [facility] Varicella (varivax)(chicken pox) 2005-04-01 00:00:00 Completed [facility] DTaP, Unspecified Formulation 2005-04-01 00:00:00 Completed [facility] HEPATITIS A 2005-04-01 00:00:00 Completed [facility] Hep B, Adol or Pedi Dosage 2005-04-01 00:00:00 Completed [facility] HIB 4 Dose Schedule 2005-04-01 00:00:00 Completed [facility] MMR 2005-04-01 00:00:00 Completed [facility] Pneumococcal 7 Conjugate, PCV7 (Prevnar7) 2005-04-01 00:00:00 Completed [facility] IPV 2005-04-01 00:00:00 Completed [facility] Varicella (varivax)(chicken pox) 2005-04-01 00:00:00 Completed [facility] DTaP, Unspecified Formulation 2005-04-01 00:00:00 Completed [facility] HEPATITIS A 2005-04-01 00:00:00 Completed [facility] Hep B, Adol or Pedi Dosage 2005-04-01 00:00:00 Completed [facility] HIB 4 Dose Schedule 2005-04-01 00:00:00 Completed [facility] MMR 2005-04-01 00:00:00 Completed [facility] Pneumococcal 7 Conjugate, PCV7 (Prevnar7) 2005-04-01 00:00:00 Completed [facility] IPV 2005-04-01 00:00:00 Completed [facility] Varicella (varivax)(chicken pox) 2005-04-01 00:00:00 Completed [facility] DTaP, Unspecified Formulation 2002-11-14 00:00:00 Completed [facility] Hep B, Adol or Pedi Dosage 2002-11-14 00:00:00 Completed [facility] HIB 4 Dose Schedule 2002-11-14 00:00:00 Completed [facility] IPV 2002-11-14 00:00:00 Completed [facility] DTaP, Unspecified Formulation 2002-11-14 00:00:00 Completed [facility] Hep B, Adol or Pedi Dosage 2002-11-14 00:00:00 Completed [facility] HIB 4 Dose Schedule 2002-11-14 00:00:00 Completed [facility] IPV 2002-11-14 00:00:00 Completed [facility] DTaP, Unspecified Formulation 2002-11-14 00:00:00 Completed [facility] Hep B, Adol or Pedi Dosage 2002-11-14 00:00:00 Completed [facility] HIB 4 Dose Schedule 2002-11-14 00:00:00 Completed [facility] IPV 2002-11-14 00:00:00 Completed [facility] DTaP, Unspecified Formulation 2002-11-14 00:00:00 Completed [facility] Hep B, Adol or Pedi Dosage 2002-11-14 00:00:00 Completed [facility] HIB 4 Dose Schedule 2002-11-14 00:00:00 Completed [facility] IPV 2002-11-14 00:00:00 Completed [facility] DTaP, Unspecified Formulation 2002-11-14 00:00:00 Completed [facility] Hep B, Adol or Pedi Dosage 2002-11-14 00:00:00 Completed [facility] HIB 4 Dose Schedule 2002-11-14 00:00:00 Completed [facility] IPV 2002-11-14 00:00:00 Completed [facility] DTaP, Unspecified Formulation 2002-11-14 00:00:00 Completed [facility] Hep B, Adol or Pedi Dosage 2002-11-14 00:00:00 Completed [facility] HIB 4 Dose Schedule 2002-11-14 00:00:00 Completed [facility] IPV 2002-11-14 00:00:00 Completed [facility] DTaP, Unspecified Formulation 2002-11-14 00:00:00 Completed [facility] Hep B, Adol or Pedi Dosage 2002-11-14 00:00:00 Completed [facility] HIB 4 Dose Schedule 2002-11-14 00:00:00 Completed [facility] IPV 2002-11-14 00:00:00 Completed [facility] DTaP, Unspecified Formulation 2002-11-14 00:00:00 Completed [facility] Hep B, Adol or Pedi Dosage 2002-11-14 00:00:00 Completed [facility] HIB 4 Dose Schedule 2002-11-14 00:00:00 Completed [facility] IPV 2002-11-14 00:00:00 Completed [facility] DTaP, Unspecified Formulation 2002-11-14 00:00:00 Completed [facility] Hep B, Adol or Pedi Dosage 2002-11-14 00:00:00 Completed HIB 4 Dose Schedule 2002-11-14 00:00:00 Completed IPV 2002-11-14 00:00:00 Completed DTaP, Unspecified Formulation 2002-11-14 00:00:00 Completed [facility] Hep B, Adol or Pedi Dosage 2002-11-14 00:00:00 Completed HIB 4 Dose Schedule 2002-11-14 00:00:00 Completed IPV 2002-11-14 00:00:00 Completed DTaP, Unspecified Formulation 2002-11-14 00:00:00 Completed [facility] Hep B, Adol or Pedi Dosage 2002-11-14 00:00:00 Completed [facility] HIB 4 Dose Schedule 2002-11-14 00:00:00 Completed [facility] IPV 2002-11-14 00:00:00 Completed [facility] DTaP, Unspecified Formulation 2002-11-14 00:00:00 Completed [facility] Hep B, Adol or Pedi Dosage 2002-11-14 00:00:00 Completed [facility] HIB 4 Dose Schedule 2002-11-14 00:00:00 Completed [facility] IPV 2002-11-14 00:00:00 Completed [facility] DTaP, Unspecified Formulation 2002-11-14 00:00:00 Completed [facility] Hep B, Adol or Pedi Dosage 2002-11-14 00:00:00 Completed [facility] HIB 4 Dose Schedule 2002-11-14 00:00:00 Completed [facility] IPV 2002-11-14 00:00:00 Completed [facility] DTaP, Unspecified Formulation 2002-11-14 00:00:00 Completed [facility] Hep B, Adol or Pedi Dosage 2002-11-14 00:00:00 Completed [facility] HIB 4 Dose Schedule 2002-11-14 00:00:00 Completed [facility] IPV 2002-11-14 00:00:00 Completed [facility] DTaP, Unspecified Formulation 2002-11-14 00:00:00 Completed [facility] Hep B, Adol or Pedi Dosage 2002-11-14 00:00:00 Completed [facility] HIB 4 Dose Schedule 2002-11-14 00:00:00 Completed [facility] IPV 2002-11-14 00:00:00 Completed [facility] DTaP, Unspecified Formulation 2002-11-14 00:00:00 Completed [facility] Hep B, Adol or Pedi Dosage 2002-11-14 00:00:00 Completed [facility] HIB 4 Dose Schedule 2002-11-14 00:00:00 Completed [facility] IPV 2002-11-14 00:00:00 Completed [facility] DTaP, Unspecified Formulation 2002-11-14 00:00:00 Completed [facility] Hep B, Adol or Pedi Dosage 2002-11-14 00:00:00 Completed [facility] HIB 4 Dose Schedule 2002-11-14 00:00:00 Completed [facility] IPV 2002-11-14 00:00:00 Completed [facility] DTaP, Unspecified Formulation 2002-11-14 00:00:00 Completed [facility] Hep B, Adol or Pedi Dosage 2002-11-14 00:00:00 Completed [facility] HIB 4 Dose Schedule 2002-11-14 00:00:00 Completed [facility] IPV 2002-11-14 00:00:00 Completed [facility] TDAP Unknown Completed [facility] Influenza Virus Vaccine Quad IM, Preserv and ABX Free 6 MO-64 YRS (FLUCELVAX) Unknown Completed [facility] DTaP, Unspecified Formulation Unknown Completed [facility] Influenza Virus Vaccine - Whole Unknown Completed [facility] HEPATITIS A Unknown Completed [facility] Hep B, Adol or Pedi Dosage Unknown Completed [facility] HIB 4 Dose Schedule Unknown Completed [facility] Meningococcal Polysaccharide (groups A, C, Y and W-135) conjugate vaccine (MCV4P) Unknown Completed [facility] MMR Unknown Completed [facility] Pneumococcal 7 Conjugate, PCV7 (Prevnar7) Unknown Completed [facility] IPV Unknown Completed [facility] TD Pres-Free Unknown Completed [facility] Varicella (varivax)(chicken pox) Unknown Completed [facility] TDAP Unknown Completed [facility] Influenza Virus Vaccine Quad IM, Preserv and ABX Free 6 MO-64 YRS (FLUCELVAX) Unknown Completed [facility] DTaP, Unspecified Formulation Unknown Completed [facility] Influenza Virus Vaccine - Whole Unknown Completed [facility] HEPATITIS A Unknown Completed [facility] Hep B, Adol or Pedi Dosage Unknown Completed [facility] HIB 4 Dose Schedule Unknown Completed [facility] Meningococcal Polysaccharide (groups A, C, Y and W-135) conjugate vaccine (MCV4P) Unknown Completed [facility] MMR Unknown Completed [facility] Pneumococcal 7 Conjugate, PCV7 (Prevnar7) Unknown Completed [facility] IPV Unknown Completed [facility] TD Pres-Free Unknown Completed [facility] Varicella (varivax)(chicken pox) Unknown Completed [facility] DTaP, Unspecified Formulation Unknown Completed [facility] Influenza Virus Vaccine - Whole Unknown Completed [facility] HEPATITIS A Unknown Completed [facility] Hep B, Adol or Pedi Dosage Unknown Completed [facility] HIB 4 Dose Schedule Unknown Completed [facility] Meningococcal Polysaccharide (groups A, C, Y and W-135) conjugate vaccine (MCV4P) Unknown Completed [facility] MMR Unknown Completed [facility] Pneumococcal 7 Conjugate, PCV7 (Prevnar7) Unknown Completed [facility] IPV Unknown Completed [facility] TD Pres-Free Unknown Completed [facility] TDAP Unknown Completed [facility] Varicella (varivax)(chicken pox) Unknown Completed [facility] DTaP, Unspecified Formulation Unknown Completed [facility] Influenza Virus Vaccine - Whole Unknown Completed [facility] HEPATITIS A Unknown [facility] Hep B, Adol or Pedi Dosage Unknown Completed [facility] HIB 4 Dose Schedule Unknown Completed [facility] Meningococcal Polysaccharide (groups A, C, Y and W-135) conjugate vaccine (MCV4P) Unknown Completed [facility] MMR Unknown Completed [facility] Pneumococcal 7 Conjugate, PCV7 (Prevnar7) Unknown Completed [facility] IPV Unknown Completed [facility] TD Pres-Free Unknown Completed [facility] TDAP Unknown Completed [facility] Varicella (varivax)(chicken pox) Unknown Completed [facility] DTaP, Unspecified Formulation Unknown Completed [facility] Influenza Virus Vaccine - Whole Unknown Completed [facility] HEPATITIS A Unknown Completed [facility] Hep B, Adol or Pedi Dosage Unknown Completed [facility] HIB 4 Dose Schedule Unknown Completed [facility] Meningococcal Polysaccharide (groups A, C, Y and W-135) conjugate vaccine (MCV4P) Unknown Completed [facility] MMR Unknown Completed [facility] Pneumococcal 7 Conjugate, PCV7 (Prevnar7) Unknown Completed [facility] IPV Unknown Completed [facility] TD Pres-Free Unknown Completed [facility] TDAP Unknown Completed [facility] Varicella (varivax)(chicken pox) Unknown Completed [facility] TDAP Unknown Completed [facility] Influenza Virus Vaccine Quad IM, Preserv and ABX Free 6 MO-64 YRS (FLUCELVAX) Unknown Completed [facility] DTaP, Unspecified Formulation Unknown Completed [facility] Influenza Virus Vaccine - Whole Unknown Completed [facility] HEPATITIS A Unknown Completed [facility] Hep B, Adol or Pedi Dosage Unknown Completed [facility] HIB 4 Dose Schedule Unknown Completed [facility] Meningococcal Polysaccharide (groups A, C, Y and W-135) conjugate vaccine (MCV4P) Unknown Completed [facility] MMR Unknown Completed [facility] Pneumococcal 7 Conjugate, PCV7 (Prevnar7) Unknown Completed [facility] IPV Unknown Completed [facility] TD Pres-Free Unknown Completed [facility] Varicella (varivax)(chicken pox) Unknown Completed [facility] TDAP Unknown Completed [facility] Influenza Virus Vaccine Quad IM, Preserv and ABX Free 6 MO-64 YRS (FLUCELVAX) Unknown Completed [facility] DTaP, Unspecified Formulation Unknown Completed [facility] Influenza Virus Vaccine - Whole Unknown Completed [facility] HEPATITIS A Unknown Completed [facility] Hep B, Adol or Pedi Dosage Unknown Completed [facility] HIB 4 Dose Schedule Unknown Completed [facility] Meningococcal Polysaccharide (groups A, C, Y and W-135) conjugate vaccine (MCV4P) Unknown Completed [facility] MMR Unknown Completed [facility] Pneumococcal 7 Conjugate, PCV7 (Prevnar7) Unknown Completed [facility] IPV Unknown Completed [facility] TD Pres-Free Unknown Completed [facility] Varicella (varivax)(chicken pox) Unknown Completed [facility] TDAP Unknown Completed [facility] Influenza Virus Vaccine Quad IM, Preserv and ABX Free 6 MO-64 YRS (FLUCELVAX) Unknown Completed [facility] DTaP, Unspecified Formulation Unknown Completed [facility] Influenza Virus Vaccine - Whole Unknown Completed [facility] HEPATITIS A Unknown Completed [facility] Hep B, Adol or Pedi Dosage Unknown Completed [facility] HIB 4 Dose Schedule Unknown Completed [facility] Meningococcal Polysaccharide (groups A, C, Y and W-135) conjugate vaccine (MCV4P) Unknown Completed [facility] MMR Unknown Completed [facility] Pneumococcal 7 Conjugate, PCV7 (Prevnar7) Unknown Completed [facility] IPV Unknown Completed [facility] TD Pres-Free Unknown Completed [facility] Varicella (varivax)(chicken pox) Unknown Completed [facility] Influenza Virus Vaccine Quad IM, Preserv and ABX Free 6 MO-64 YRS (FLUCELVAX) Unknown Completed [facility] Influenza Virus Vaccine - Whole Unknown Completed [facility] Meningococcal Polysaccharide (groups A, C, Y and W-135) conjugate vaccine (MCV4P) Unknown Completed [facility] Pneumococcal 7 Conjugate, PCV7 (Prevnar7) Unknown Completed [facility] TD Pres-Free Unknown Completed [facility] TDAP Unknown Completed [facility] DTaP, Unspecified Formulation Unknown Completed [facility] HEPATITIS A Unknown [facility] Hep B, Adol or Pedi Dosage Unknown Completed [facility] HIB 4 Dose Schedule Unknown Completed [facility] MMR Unknown Completed [facility] IPV Unknown Completed [facility] Varicella (varivax)(chicken pox) Unknown Completed [facility] TDAP Unknown Completed [facility] Influenza Virus Vaccine Quad IM, Preserv and ABX Free 6 MO-64 YRS (FLUCELVAX) Unknown Completed [facility] DTaP, Unspecified Formulation Unknown Completed [facility] Influenza Virus Vaccine - Whole Unknown Completed [facility] HEPATITIS A Unknown Completed [facility] Hep B, Adol or Pedi Dosage Unknown Completed [facility] HIB 4 Dose Schedule Unknown Completed [facility] Meningococcal Polysaccharide (groups A, C, Y and W-135) conjugate vaccine (MCV4P) Unknown Completed [facility] MMR Unknown Completed [facility] Pneumococcal 7 Conjugate, PCV7 (Prevnar7) Unknown Completed [facility] IPV Unknown Completed [facility] TD Pres-Free Unknown Completed [facility] Varicella (varivax)(chicken pox) Unknown Completed [facility] TDAP Unknown Completed [facility] Influenza Virus Vaccine Quad IM, Preserv and ABX Free 6 MO-64 YRS (FLUCELVAX) Unknown Completed [facility] DTaP, Unspecified Formulation Unknown Completed [facility] Influenza Virus Vaccine - Whole Unknown Completed [facility] HEPATITIS A Unknown Completed [facility] Hep B, Adol or Pedi Dosage Unknown Completed [facility] HIB 4 Dose Schedule Unknown Completed [facility] Meningococcal Polysaccharide (groups A, C, Y and W-135) conjugate vaccine (MCV4P) Unknown Completed [facility] MMR Unknown Completed [facility] Pneumococcal 7 Conjugate, PCV7 (Prevnar7) Unknown Completed [facility] IPV Unknown Completed [facility] TD Pres-Free Unknown Completed [facility] Varicella (varivax)(chicken pox) Unknown Completed [facility] TDAP Unknown Completed [facility] Influenza Virus Vaccine Quad IM, Preserv and ABX Free 6 MO-64 YRS (FLUCELVAX) Unknown Completed [facility] DTaP, Unspecified Formulation Unknown Completed [facility] Influenza Virus Vaccine - Whole Unknown Completed [facility] HEPATITIS A Unknown Completed [facility] Hep B, Adol or Pedi Dosage Unknown Completed [facility] HIB 4 Dose Schedule Unknown Completed [facility] Meningococcal Polysaccharide (groups A, C, Y and W-135) conjugate vaccine (MCV4P) Unknown Completed [facility] MMR Unknown Completed [facility] Pneumococcal 7 Conjugate, PCV7 (Prevnar7) Unknown Completed [facility] IPV Unknown Completed [facility] TD Pres-Free Unknown Completed [facility] Varicella (varivax)(chicken pox) Unknown Completed [facility] TDAP Unknown Completed [facility] Influenza Virus Vaccine Quad IM, Preserv and ABX Free 6 MO-64 YRS (FLUCELVAX) Unknown Completed [facility] DTaP, Unspecified Formulation Unknown Completed [facility] Influenza Virus Vaccine - Whole Unknown Completed [facility] HEPATITIS A Unknown Completed [facility] Hep B, Adol or Pedi Dosage Unknown Completed [facility] HIB 4 Dose Schedule Unknown Completed [facility] Meningococcal Polysaccharide (groups A, C, Y and W-135) conjugate vaccine (MCV4P) Unknown Completed [facility] MMR Unknown Completed [facility] Pneumococcal 7 Conjugate, PCV7 (Prevnar7) Unknown Completed [facility] IPV Unknown Completed [facility] TD Pres-Free Unknown Completed [facility] Varicella (varivax)(chicken pox) Unknown Completed [facility] TDAP Unknown Completed [facility] Influenza Virus Vaccine Quad IM, Preserv and ABX Free 6 MO-64 YRS (FLUCELVAX) Unknown Completed [facility] DTaP, Unspecified Formulation Unknown Completed [facility] Influenza Virus Vaccine - Whole Unknown Completed [facility] HEPATITIS A Unknown Completed [facility] Hep B, Adol or Pedi Dosage Unknown Completed [facility] HIB 4 Dose Schedule Unknown Completed [facility] Meningococcal Polysaccharide (groups A, C, Y and W-135) conjugate vaccine (MCV4P) Unknown Completed [facility] MMR Unknown Completed [facility] Pneumococcal 7 Conjugate, PCV7 (Prevnar7) Unknown Completed [facility] IPV Unknown Completed [facility] TD Pres-Free Unknown Completed [facility] Varicella (varivax)(chicken pox) Unknown Completed [facility] TDAP Unknown Completed [facility] Influenza Virus Vaccine Quad IM, Preserv and ABX Free 6 MO-64 YRS (FLUCELVAX) Unknown Completed [facility] DTaP, Unspecified Formulation Unknown Completed [facility] Influenza Virus Vaccine - Whole Unknown Completed [facility] HEPATITIS A Unknown Completed [facility] Hep B, Adol or Pedi Dosage Unknown Completed [facility] HIB 4 Dose Schedule Unknown Completed [facility] Meningococcal Polysaccharide (groups A, C, Y and W-135) conjugate vaccine (MCV4P) Unknown Completed [facility] MMR Unknown Completed [facility] Pneumococcal 7 Conjugate, PCV7 (Prevnar7) Unknown Completed [facility] IPV Unknown Completed [facility] TD Pres-Free Unknown Completed [facility] Varicella (varivax)(chicken pox) Unknown Completed [facility] TDAP Unknown Completed [facility] Influenza Virus Vaccine Quad IM, Preserv and ABX Free 6 MO-64 YRS (FLUCELVAX) Unknown Completed [facility] DTaP, Unspecified Formulation Unknown Completed [facility] Influenza Virus Vaccine - Whole Unknown Completed [facility] HEPATITIS A Unknown Completed [facility] Hep B, Adol or Pedi Dosage Unknown Completed [facility] HIB 4 Dose Schedule Unknown Completed [facility] Meningococcal Polysaccharide (groups A, C, Y and W-135) conjugate vaccine (MCV4P) Unknown Completed [facility] MMR Unknown Completed [facility] Pneumococcal 7 Conjugate, PCV7 (Prevnar7) Unknown Completed [facility] IPV Unknown Completed [facility] TD Pres-Free Unknown Completed [facility] Varicella (varivax)(chicken pox) Unknown Completed [facility] TDAP Unknown Completed [facility] Influenza Virus Vaccine Quad IM, Preserv and ABX Free 6 MO-64 YRS (FLUCELVAX) Unknown Completed [facility] DTaP, Unspecified Formulation Unknown Completed [facility] Influenza Virus Vaccine - Whole Unknown Completed [facility] HEPATITIS A Unknown Completed [facility] Hep B, Adol or Pedi Dosage Unknown Completed [facility] HIB 4 Dose Schedule Unknown Completed [facility] Meningococcal Polysaccharide (groups A, C, Y and W-135) conjugate vaccine (MCV4P) Unknown Completed [facility] MMR Unknown Completed [facility] Pneumococcal 7 Conjugate, PCV7 (Prevnar7) Unknown Completed [facility] IPV Unknown Completed [facility] TD Pres-Free Unknown Completed [facility] Varicella (varivax)(chicken pox) Unknown Completed [facility] TDAP Unknown Completed [facility] Influenza Virus Vaccine Quad IM, Preserv and ABX Free 6 MO-64 YRS (FLUCELVAX) Unknown Completed [facility] DTaP, Unspecified Formulation Unknown Completed [facility] Influenza Virus Vaccine - Whole Unknown Completed [facility] HEPATITIS A Unknown Completed [facility] Hep B, Adol or Pedi Dosage Unknown Completed [facility] HIB 4 Dose Schedule Unknown Completed [facility] Meningococcal Polysaccharide (groups A, C, Y and W-135) conjugate vaccine (MCV4P) Unknown Completed [facility] MMR Unknown Completed [facility] Pneumococcal 7 Conjugate, PCV7 (Prevnar7) Unknown Completed [facility] IPV Unknown Completed [facility] TD Pres-Free Unknown Completed [facility] Varicella (varivax)(chicken pox) Unknown Completed [facility] TDAP Unknown Completed [facility] Influenza Virus Vaccine Quad IM, Preserv and ABX Free 6 MO-64 YRS (FLUCELVAX) Unknown Completed [facility] DTaP, Unspecified Formulation Unknown Completed [facility] Influenza Virus Vaccine - Whole Unknown Completed [facility] HEPATITIS A Unknown Completed [facility] Hep B, Adol or Pedi Dosage Unknown Completed [facility] HIB 4 Dose Schedule Unknown Completed [facility] Meningococcal Polysaccharide (groups A, C, Y and W-135) conjugate vaccine (MCV4P) Unknown Completed [facility] MMR Unknown Completed [facility] Pneumococcal 7 Conjugate, PCV7 (Prevnar7) Unknown Completed [facility] IPV Unknown Completed [facility] TD Pres-Free Unknown Completed [facility] Varicella (varivax)(chicken pox) Unknown Completed [facility] Influenza Virus Vaccine Quad IM, Preserv and ABX Free 6 MO-64 YRS (FLUCELVAX) Unknown Completed [facility] Influenza Virus Vaccine - Whole Unknown Completed [facility] Meningococcal Polysaccharide (groups A, C, Y and W-135) conjugate vaccine (MCV4P) Unknown Completed [facility] Pneumococcal 7 Conjugate, PCV7 (Prevnar7) Unknown Completed [facility] TD Pres-Free Unknown Completed [facility] TDAP Unknown Completed [facility] DTaP, Unspecified Formulation Unknown Completed [facility] HEPATITIS A Unknown Completed [facility] Hep B, Adol or Pedi Dosage Unknown Completed [facility] HIB 4 Dose Schedule Unknown Completed [facility] MMR Unknown Completed [facility] IPV Unknown Completed [facility] Varicella (varivax)(chicken pox) Unknown Completed [facility] TDAP Unknown Completed [facility] Influenza Virus Vaccine Quad IM, Preserv and ABX Free 6 MO-64 YRS (FLUCELVAX) Unknown Completed [facility] DTaP, Unspecified Formulation Unknown Completed [facility] Influenza Virus Vaccine - Whole Unknown Completed [facility] HEPATITIS A Unknown Completed [facility] Hep B, Adol or Pedi Dosage Unknown Completed [facility] HIB 4 Dose Schedule Unknown Completed [facility] Meningococcal Polysaccharide (groups A, C, Y and W-135) conjugate vaccine (MCV4P) Unknown Completed [facility] MMR Unknown Completed [facility] Pneumococcal 7 Conjugate, PCV7 (Prevnar7) Unknown Completed [facility] IPV Unknown Completed [facility] TD Pres-Free Unknown Completed [facility] Varicella (varivax)(chicken pox) Unknown Completed [facility] TDAP Unknown Completed [facility] Influenza Virus Vaccine Quad IM, Preserv and ABX Free 6 MO-64 YRS (FLUCELVAX) Unknown Completed [facility] DTaP, Unspecified Formulation Unknown Completed [facility] Influenza Virus Vaccine - Whole Unknown Completed [facility] HEPATITIS A Unknown Completed [facility] Hep B, Adol or Pedi Dosage Unknown Completed [facility] HIB 4 Dose Schedule Unknown Completed [facility] Meningococcal Polysaccharide (groups A, C, Y and W-135) conjugate vaccine (MCV4P) Unknown Completed [facility] MMR Unknown Completed [facility] Pneumococcal 7 Conjugate, PCV7 (Prevnar7) Unknown Completed [facility] IPV Unknown Completed [facility] TD Pres-Free Unknown Completed [facility] Varicella (varivax)(chicken pox) Unknown Completed [facility] TDAP Unknown Completed [facility] Influenza Virus Vaccine Quad IM, Preserv and ABX Free 6 MO-64 YRS (FLUCELVAX) Unknown Completed [facility] DTaP, Unspecified Formulation Unknown Completed [facility] Influenza Virus Vaccine - Whole Unknown Completed [facility] HEPATITIS A Unknown Completed [facility] Hep B, Adol or Pedi Dosage Unknown Completed [facility] HIB 4 Dose Schedule Unknown Completed [facility] Meningococcal Polysaccharide (groups A, C, Y and W-135) conjugate vaccine (MCV4P) Unknown Completed [facility] MMR Unknown Completed [facility] Pneumococcal 7 Conjugate, PCV7 (Prevnar7) Unknown Completed [facility] IPV Unknown Completed [facility] TD Pres-Free Unknown Completed [facility] Varicella (varivax)(chicken pox) Unknown Completed [facility] TDAP Unknown Completed [facility] Influenza Virus Vaccine Quad IM, Preserv and ABX Free 6 MO-64 YRS (FLUCELVAX) Unknown Completed [facility] DTaP, Unspecified Formulation Unknown Completed [facility] Influenza Virus Vaccine - Whole Unknown Completed [facility] HEPATITIS A Unknown Completed [facility] Hep B, Adol or Pedi Dosage Unknown Completed [facility] HIB 4 Dose Schedule Unknown Completed [facility] Meningococcal Polysaccharide (groups A, C, Y and W-135) conjugate vaccine (MCV4P) Unknown Completed [facility] MMR Unknown Completed [facility] Pneumococcal 7 Conjugate, PCV7 (Prevnar7) Unknown Completed [facility] IPV Unknown Completed [facility] TD Pres-Free Unknown Completed [facility] Varicella (varivax)(chicken pox) Unknown Completed [facility] TDAP Unknown Completed [facility] Influenza Virus Vaccine Quad IM, Preserv and ABX Free 6 MO-64 YRS (FLUCELVAX) Unknown Completed [facility] DTaP, Unspecified Formulation Unknown Completed [facility] Influenza Virus Vaccine - Whole Unknown Completed [facility] HEPATITIS A Unknown Completed [facility] Hep B, Adol or Pedi Dosage Unknown Completed [facility] HIB 4 Dose Schedule Unknown Completed [facility] Meningococcal Polysaccharide (groups A, C, Y and W-135) conjugate vaccine (MCV4P) Unknown Completed [facility] MMR Unknown Completed [facility] Pneumococcal 7 Conjugate, PCV7 (Prevnar7) Unknown Completed [facility] IPV Unknown Completed [facility] TD Pres-Free Unknown Completed [facility] Varicella (varivax)(chicken pox) Unknown Completed [facility] Flu Injectable MDCK Pres-Free (FLUCELVAX) Unknown Completed [facility] TDAP Unknown Completed [facility] Influenza Virus Vaccine Quad IM, Preserv and ABX Free 6 MO-64 YRS (FLUCELVAX) Unknown Completed [facility] DTaP, Unspecified Formulation Unknown Completed [facility] Influenza Virus Vaccine - Whole Unknown Completed [facility] HEPATITIS A Unknown Completed [facility] Hep B, Adol or Pedi Dosage Unknown Completed [facility] HIB 4 Dose Schedule Unknown Completed [facility] Meningococcal Polysaccharide (groups A, C, Y and W-135) conjugate vaccine (MCV4P) Unknown Completed [facility] MMR Unknown Completed [facility] Pneumococcal 7 Conjugate, PCV7 (Prevnar7) Unknown Completed [facility] IPV Unknown Completed [facility] TD Pres-Free Unknown Completed [facility] Varicella (varivax)(chicken pox) Unknown Completed [facility] Flu Injectable MDCK Pres-Free (FLUCELVAX) Unknown Completed [facility] TDAP Unknown Completed [facility] Influenza Virus Vaccine Quad IM, Preserv and ABX Free 6 MO-64 YRS (FLUCELVAX) Unknown Completed [facility] DTaP, Unspecified Formulation Unknown Completed [facility] Influenza Virus Vaccine - Whole Unknown Completed [facility] HEPATITIS A Unknown Completed [facility] Hep B, Adol or Pedi Dosage Unknown Completed [facility] HIB 4 Dose Schedule Unknown Completed [facility] Meningococcal Polysaccharide (groups A, C, Y and W-135) conjugate vaccine (MCV4P) Unknown Completed [facility] MMR Unknown Completed [facility] Pneumococcal 7 Conjugate, PCV7 (Prevnar7) Unknown Completed [facility] IPV Unknown Completed [facility] TD Pres-Free Unknown Completed [facility] Varicella (varivax)(chicken pox) Unknown Completed [facility] Flu Injectable MDCK Pres-Free (FLUCELVAX) Unknown Completed [facility] TDAP Unknown Completed [facility] Influenza Virus Vaccine Quad IM, Preserv and ABX Free 6 MO-64 YRS (FLUCELVAX) Unknown Completed [facility] DTaP, Unspecified Formulation Unknown Completed [facility] Influenza Virus Vaccine - Whole Unknown Completed [facility] HEPATITIS A Unknown Completed [facility] Hep B, Adol or Pedi Dosage Unknown Completed [facility] HIB 4 Dose Schedule Unknown Completed [facility] Meningococcal Polysaccharide (groups A, C, Y and W-135) conjugate vaccine (MCV4P) Unknown Completed [facility] MMR Unknown Completed [facility] Pneumococcal 7 Conjugate, PCV7 (Prevnar7) Unknown Completed [facility] IPV Unknown Completed [facility] TD Pres-Free Unknown Completed [facility] Varicella (varivax)(chicken pox) Unknown Completed [facility] Flu Injectable MDCK Pres-Free (FLUCELVAX) Unknown Completed [facility] RSV, Bivalent Protein Subunit RSVprdF Unknown Completed [facility] TDAP Unknown Completed [facility] Influenza Virus Vaccine Quad IM, Preserv and ABX Free 6 MO-64 YRS (FLUCELVAX) Unknown Completed [facility] DTaP, Unspecified Formulation Unknown Completed [facility] Influenza Virus Vaccine - Whole Unknown Completed [facility] HEPATITIS A Unknown Completed [facility] Hep B, Adol or Pedi Dosage Unknown Completed [facility] HIB 4 Dose Schedule Unknown Completed [facility] Meningococcal Polysaccharide (groups A, C, Y and W-135) conjugate vaccine (MCV4P) Unknown Completed [facility] MMR Unknown Completed [facility] Pneumococcal 7 Conjugate, PCV7 (Prevnar7) Unknown Completed [facility] IPV Unknown Completed [facility] TD Pres-Free Unknown Completed [facility] Varicella (varivax)(chicken pox) Unknown Completed [facility] Flu Injectable MDCK Pres-Free (FLUCELVAX) Unknown Completed [facility] RSV, Bivalent Protein Subunit RSVprdF Unknown Completed [facility] Vital Signs Vital Name Observation Time Observation Value Comments S ource Systolic blood pressure 2024-06-21 12:54:00 98 mm[Hg] [facility] Diastolic blood pressure 2024-06-21 12:54:00 51 mm[Hg] [facility] Body temperature 2024-06-21 12:54:00 36.78 Lisseth [facility] Oxygen saturation in Arterial blood by Pulse oximetry 2024-06-21 12:54:00 100 /min [facility] Heart rate 2024-06-21 08:50:00 93 /min [facility] Respiratory rate 2024-06-21 00:30:00 18 /min [facility] Body height 2024-06-20 11:20:00 175.3 cm [facility] Body weight 2024-06-20 11:20:00 110.678 kg [facility] BMI 2024-06-20 11:20:00 36.03 kg/m2 [facility] Systolic blood pressure 2024-06-20 15:45:00 105 mm[Hg] [facility] Diastolic blood pressure 2024-06-20 15:45:00 64 mm[Hg] [facility] Heart rate 2024-06-20 15:45:00 64 /min [facility] Oxygen saturation in Arterial blood by Pulse oximetry 2024-06-20 15:45:00 100 /min [facility] Body temperature 2024-06-20 14:50:00 36.67 Lisseth [facility] Respiratory rate 2024-06-20 11:20:00 18 /min [facility] Body height 2024-06-20 11:20:00 175.3 cm [facility] Body weight 2024-06-20 11:20:00 110.678 kg [facility] BMI 2024-06-20 11:20:00 36.03 kg/m2 [facility] Systolic blood pressure 2024-06-16 21:18:00 109 mm[Hg] [facility] Diastolic blood pressure 2024-06-16 21:18:00 70 mm[Hg] [facility] Heart rate 2024-06-16 21:18:00 85 /min [facility] Body temperature 2024-06-16 21:18:00 36.78 Lisseth [facility] Respiratory rate 2024-06-16 21:18:00 18 /min [facility] Body height 2024-06-16 21:18:00 175.3 cm [facility] Body weight 2024-06-16 21:18:00 110.043 kg [facility] BMI 2024-06-16 21:18:00 35.83 kg/m2 [facility] Systolic blood pressure 2024-06-09 14:20:00 107 mm[Hg] [facility] Diastolic blood pressure 2024-06-09 14:20:00 76 mm[Hg] [facility] Heart rate 2024-06-09 14:20:00 85 /min [facility] Body temperature 2024-06-09 14:20:00 36.67 Lisseth [facility] Respiratory rate 2024-06-09 14:20:00 18 /min [facility] Body height 2024-06-09 14:20:00 175.3 cm [facility] Body weight 2024-06-09 14:20:00 109.135 kg [facility] BMI 2024-06-09 14:20:00 35.53 kg/m2 [facility] Oxygen saturation in Arterial blood by Pulse oximetry 2024-06-09 14:20:00 98 /min [facility] Systolic blood pressure 2024-05-26 18:20:00 113 mm[Hg] [facility] Diastolic blood pressure 2024-05-26 18:20:00 70 mm[Hg] [facility] Heart rate 2024-05-26 18:20:00 111 /min [facility] Body temperature 2024-05-26 18:20:00 36.67 Lisseth [facility] Respiratory rate 2024-05-26 18:20:00 18 /min [facility] Body height 2024-05-26 18:20:00 175.3 cm [facility] Body weight 2024-05-26 18:20:00 109.317 kg [facility] BMI 2024-05-26 18:20:00 35.59 kg/m2 [facility] Systolic blood pressure 2024-05-12 18:24:00 100 mm[Hg] [facility] Diastolic blood pressure 2024-05-12 18:24:00 65 mm[Hg] [facility] Heart rate 2024-05-12 18:24:00 98 /min [facility] Respiratory rate 2024-05-12 18:24:00 18 /min [facility] Body height 2024-05-12 18:24:00 175.3 cm [facility] Body weight 2024-05-12 18:24:00 110.224 kg [facility] BMI 2024-05-12 18:24:00 35.88 kg/m2 [facility] Systolic blood pressure 2024-04-28 15:30:00 113 mm[Hg] [facility] Diastolic blood pressure 2024-04-28 15:30:00 75 mm[Hg] [facility] Heart rate 2024-04-28 15:30:00 93 /min [facility] Body temperature 2024-04-28 15:30:00 36.83 Lisseth [facility] Respiratory rate 2024-04-28 15:30:00 18 /min [facility] Body height 2024-04-28 15:30:00 175.3 cm [facility] Body weight 2024-04-28 15:30:00 107.956 kg [facility] BMI 2024-04-28 15:30:00 35.15 kg/m2 [facility] Systolic blood pressure 2024-03-24 15:53:00 117 mm[Hg] [facility] Diastolic blood pressure 2024-03-24 15:53:00 71 mm[Hg] [facility] Heart rate 2024-03-24 15:53:00 107 /min [facility] temperature 2024-03-24 15:53:00 36.17 Lisseth [facility] Body height 2024-03-24 15:53:00 175.3 cm [facility] weight 2024-03-24 15:53:00 104.055 kg [facility] BMI 2024-03-24 15:53:00 33.88 kg/m2 [facility] Systolic blood pressure 2024-01-28 16:12:00 108 mm[Hg] [facility] Diastolic blood pressure 2024-01-28 16:12:00 74 mm[Hg] [facility] Heart rate 2024-01-28 16:12:00 84 /min [facility] Body temperature 2024-01-28 16:12:00 37.06 Lisseth [facility] Body height 2024-01-28 16:12:00 175.3 cm [facility] weight 2024-01-28 16:12:00 102.785 kg [facility] BMI 2024-01-28 16:12:00 33.46 kg/m2 [facility] Systolic blood pressure 2023-12-30 14:36:00 105 mm[Hg] [facility] Diastolic blood pressure 2023-12-30 14:36:00 69 mm[Hg] [facility] Heart rate 2023-12-30 14:36:00 77 /min Unive [facility] Body temperature 2023-12-30 14:36:00 36.5 Lisseth [facility] Respiratory rate 2023-12-30 14:36:00 18 /min [facility] Body height 2023-12-30 14:36:00 175.3 cm [facility] weight 2023-12-30 14:36:00 102.967 kg [facility] BMI 2023-12-30 14:36:00 33.52 kg/m2 [facility] Body Temperature 2023-12-27 00:32:00 97.9 [degF] [facility] Heart Rate 2023-12-27 00:32:00 81 /min [facility] Respiratory rate 2023-12-27 00:32:00 15 /min [facility] BP Systolic 2023-12-27 00:32:00 118 mm[Hg] [facility] BP Diastolic 2023-12-27 00:32:00 72 mm[Hg] [facility] Height 2023-12-26 22:58:00 175.380963 cm TM R Weight 2023-12-26 22:58:00 102.692338 kg TM R BMI (Body Mass Index) 2023-12-26 22:58:00 33.5 kg/m2 [facility] Systolic blood pressure 2023-11-26 19:35:00 106 mm[Hg] [facility] Diastolic blood pressure 2023-11-26 19:35:00 64 mm[Hg] [facility] Heart rate 2023-11-26 19:35:00 82 /min [facility] Body temperature 2023-11-26 19:35:00 37.33 Lisseth [facility] Respiratory rate 2023-11-26 19:35:00 18 /min [facility] Body height 2023-11-26 19:35:00 175.3 cm [facility] Body weight 2023-11-26 19:35:00 104.327 kg [facility] BMI 2023-11-26 19:35:00 33.97 kg/m2 [facility] Height 2023-11-09 09:02:00 175.559381 cm TE L Body Temperature 2023-11-09 09:02:00 97.8 [degF] [facility] Weight 2023-11-09 09:02:00 106.656460 kg TE L BMI (Body Mass Index) 2023-11-09 09:02:00 34.6 kg/m2 [facility] Heart Rate 2023-11-09 09:02:00 79 /min [facility] Respiratory rate 2023-11-09 09:02:00 16 /min T[facility] BP Systolic 2023-11-09 09:02:00 108 mm[Hg] [facility] BP Diastolic 2023-11-09 09:02:00 68 mm[Hg] [facility] Body Temperature 2023-11-08 23:13:00 98.5 [degF] [facility] Heart Rate 2023-11-08 23:13:00 80 /min [facility] Respiratory rate 2023-11-08 23:13:00 17 /min TEL BP Systolic 2023-11-08 23:13:00 107 mm[Hg] [facility] BP Diastolic 2023-11-08 23:13:00 67 mm[Hg] [facility] Body Temperature 2023-11-08 23:13:00 98.5 [degF] [facility] Heart Rate 2023-11-08 23:13:00 80 /min [facility] Respiratory rate 2023-11-08 23:13:00 17 /min [facility] BP Systolic 2023-11-08 23:13:00 107 mm[Hg] [facility] BP Diastolic 2023-11-08 23:13:00 67 mm[Hg] [facility] BMI (Body Mass Index) 2023-11-08 18:15:00 35.3 kg/m2 [facility] Height 2023-11-08 18:09:00 175.683923 cm TE L Weight 2023-11-08 18:09:00 108.137566 kg TE L Systolic blood pressure 2022-11-23 18:48:00 115 mm[Hg] [facility] Diastolic blood pressure 2022-11-23 18:48:00 72 mm[Hg] [facility] Heart rate 2022-11-23 18:48:00 78 /min [facility] temperature 2022-11-23 18:48:00 36.67 Lisseth [facility] Respiratory rate 2022-11-23 18:48:00 16 /min [facility] Body height 2022-11-23 18:48:00 175.3 cm [facility] Body weight 2022-11-23 18:48:00 97.705 kg [facility] BMI 2022-11-23 18:48:00 31.81 kg/m2 [facility] Oxygen saturation in Arterial blood by Pulse oximetry 2022-11-23 18:48:00 99 /min [facility] Systolic blood pressure 2022-11-12 14:05:00 105 mm[Hg] [facility] Diastolic blood pressure 2022-11-12 14:05:00 71 mm[Hg] [facility] Heart rate 2022-11-12 14:05:00 97 /min Unive [facility] Respiratory rate 2022-11-12 14:05:00 18 /min [facility] Body height 2022-11-12 14:05:00 175.3 cm [facility] Body weight 2022-11-12 14:05:00 96.616 kg [facility] BMI 2022-11-12 14:05:00 31.45 kg/m2 [facility] Systolic blood pressure 2022-10-06 22:48:00 108 mm[Hg] [facility] Diastolic blood pressure 2022-10-06 22:48:00 73 mm[Hg] [facility] Heart rate 2022-10-06 22:48:00 93 /min Unive [facility] Body temperature 2022-10-06 22:48:00 37 Lisseth [facility] Respiratory rate 2022-10-06 22:48:00 18 /min [facility] Body height 2022-10-06 22:48:00 175.3 cm [facility] Body weight 2022-10-06 22:48:00 92.987 kg [facility] BMI 2022-10-06 22:48:00 30.27 kg/m2 [facility] Systolic blood pressure 2022-09-25 17:48:00 123 mm[Hg] [facility] Diastolic blood pressure 2022-09-25 17:48:00 65 mm[Hg] [facility] Heart rate 2022-09-25 17:48:00 80 /min Unive [facility] Body temperature 2022-09-25 17:48:00 37.11 Lisseth [facility] Respiratory rate 2022-09-25 17:48:00 22 /min [facility] Body height 2022-09-25 17:48:00 175.3 cm [facility] Body weight 2022-09-25 17:48:00 90.719 kg [facility] BMI 2022-09-25 17:48:00 29.53 kg/m2 [facility] Oxygen saturation in Arterial blood by Pulse oximetry 2022-09-25 17:48:00 99 /min [facility] Systolic blood pressure 2022-09-18 17:25:00 106 mm[Hg] [facility] Diastolic blood pressure 2022-09-18 17:25:00 71 mm[Hg] [facility] Heart rate 2022-09-18 17:25:00 72 /min Unive [facility] Respiratory rate 2022-09-18 17:25:00 18 /min [facility] Body height 2022-09-18 17:25:00 175.3 cm [facility] Body weight 2022-09-18 17:25:00 90.719 kg [facility] BMI 2022-09-18 17:25:00 29.53 kg/m2 [facility] Systolic blood pressure 2022-07-16 18:38:00 125 mm[Hg] [facility] Diastolic blood pressure 2022-07-16 18:38:00 82 mm[Hg] [facility] Heart rate 2022-07-16 18:38:00 99 /min Unive [facility] Body temperature 2022-07-16 18:38:00 36.83 Lisseth [facility] Respiratory rate 2022-07-16 18:38:00 18 /min [facility] Body weight 2022-07-16 18:38:00 92.08 kg [facility] Oxygen saturation in Arterial blood by Pulse oximetry 2022-07-16 18:38:00 100 /min [facility] Systolic blood pressure 2021-10-02 19:47:00 110 mm[Hg] [facility] Diastolic blood pressure 2021-10-02 19:47:00 74 mm[Hg] [facility] Heart rate 2021-10-02 19:47:00 83 /min Unive [facility] Body temperature 2021-10-02 19:47:00 37.22 Lisseth [facility] Body height 2021-10-02 19:47:00 175.3 cm [facility] Body weight 2021-10-02 19:47:00 91.808 kg [facility] BMI 2021-10-02 19:47:00 29.89 kg/m2 [facility] Systolic blood pressure 2021-09-01 16:42:00 115 mm[Hg] [facility] Diastolic blood pressure 2021-09-01 16:42:00 79 mm[Hg] [facility] Heart rate 2021-09-01 16:42:00 94 /min [facility] Body temperature 2021-09-01 16:42:00 37.67 Lisseth [facility] Body height 2021-09-01 16:42:00 175.3 cm [facility] Body weight 2021-09-01 16:42:00 101.696 kg [facility] BMI 2021-09-01 16:42:00 33.11 kg/m2 [facility] Body mass index (BMI) [Percentile] Per age and sex 2021-09-01 16:42:00 96.02 % [facility] Systolic blood pressure 2021-08-25 19:06:00 105 mm[Hg] [facility] Diastolic blood pressure 2021-08-25 19:06:00 71 mm[Hg] [facility] Heart rate 2021-08-25 19:06:00 80 /min [facility] Body temperature 2021-08-25 19:06:00 36.72 Lisseth [facility] Respiratory rate 2021-08-25 19:06:00 18 /min [facility] Body height 2021-08-25 19:06:00 175.3 cm [facility] Body weight 2021-08-25 19:06:00 100.699 kg [facility] BMI 2021-08-25 19:06:00 32.78 kg/m2 [facility] Body mass index (BMI) [Percentile] Per age and sex 2021-08-25 19:06:00 95.81 % [facility] Systolic blood pressure 2021-08-08 20:47:00 108 mm[Hg] [facility] Diastolic blood pressure 2021-08-08 20:47:00 66 mm[Hg] [facility] Heart rate 2021-08-08 20:47:00 89 /min [facility] Body temperature 2021-08-08 20:47:00 36.83 Lisseth [facility] Respiratory rate 2021-08-08 20:47:00 18 /min [facility] Body height 2021-08-08 20:47:00 175.3 cm [facility] Body weight 2021-08-08 20:47:00 98.431 kg [facility] BMI 2021-08-08 20:47:00 32.05 kg/m2 [facility] Body mass index (BMI) [Percentile] Per age and sex 2021-08-08 20:47:00 95.30 % [facility] Systolic blood pressure 2021-05-30 17:09:00 127 mm[Hg] [facility] Diastolic blood pressure 2021-05-30 17:09:00 77 mm[Hg] [facility] Heart rate 2021-05-30 17:09:00 94 /min [facility] Body temperature 2021-05-30 17:09:00 36.78 Lisseth [facility] Respiratory rate 2021-05-30 17:09:00 18 /min [facility] Body height 2021-05-30 17:09:00 175.3 cm [facility] Body weight 2021-05-30 17:09:00 87.952 kg [facility] BMI 2021-05-30 17:09:00 28.63 kg/m2 [facility] Body mass index (BMI) [Percentile] Per age and sex 2021-05-30 17:09:00 91.12 % [facility] Systolic blood pressure 2021-05-22 18:13:00 113 mm[Hg] [facility] Diastolic blood pressure 2021-05-22 18:13:00 88 mm[Hg] [facility] Heart rate 2021-05-22 18:13:00 102 /min Unive [facility] Body temperature 2021-05-22 18:13:00 37.5 Lisseth [facility] Respiratory rate 2021-05-22 18:13:00 18 /min [facility] Body weight 2021-05-22 18:13:00 86.365 kg [facility] Oxygen saturation in Arterial blood by Pulse oximetry 2021-05-22 18:13:00 100 /min [facility] Systolic blood pressure 2021-05-02 17:43:00 99 mm[Hg] [facility] Diastolic blood pressure 2021-05-02 17:43:00 68 mm[Hg] [facility] Heart rate 2021-05-02 17:43:00 81 /min Unive [facility] Body temperature 2021-05-02 17:43:00 36.83 Lisseth [facility] Respiratory rate 2021-05-02 17:43:00 18 /min [facility] Body height 2021-05-02 17:43:00 162.6 cm [facility] Body weight 2021-05-02 17:43:00 81.392 kg [facility] BMI 2021-05-02 17:43:00 30.80 kg/m2 [facility] Systolic blood pressure 2021-04-22 16:54:00 118 mm[Hg] [facility] Diastolic blood pressure 2021-04-22 16:54:00 72 mm[Hg] [facility] Heart rate 2021-04-22 16:54:00 126 /min Unive [facility] Body temperature 2021-04-22 16:54:00 38.5 Lisseth [facility] Respiratory rate 2021-04-22 16:54:00 18 /min [facility] Body weight 2021-04-22 16:54:00 81.874 kg [facility] Oxygen saturation in Arterial blood by Pulse oximetry 2021-04-22 16:54:00 99 /min [facility] BP Systolic 2022-09-15 14:51:00 110 mm[Hg] BP Diastolic 2022-09-15 14:51:00 66 mm[Hg] Weight Measured 2022-09-15 14:51:00 197.80 pounds Height Measured 2022-09-15 14:51:00 68.50 inches Body Temperature 2022-09-15 14:51:00 98.30 degrees Heart Rate 2022-09-15 14:51:00 79.00 /min Respiratory Rate 2022-09-15 14:51:00 18.00 /min BP Systolic 2021-04-04 13:49:00 107 mm[Hg] BP Diastolic 2021-04-04 13:49:00 75 mm[Hg] Weight Measured 2021-04-04 13:49:00 183.60 pounds Height Measured 2021-04-04 13:49:00 68.50 inches Body Temperature 2021-04-04 13:49:00 98.10 degrees Heart Rate 2021-04-04 13:49:00 86.00 /min Respiratory Rate 2021-04-04 13:49:00 17.00 /min BP Diastolic 2019-07-13 14:40:00 75 mm[Hg] Weight Measured 2019-07-13 14:40:00 186.80 pounds Height Measured 2019-07-13 14:40:00 68.50 inches Body Temperature 2019-07-13 14:40:00 98.40 degrees Heart Rate 2019-07-13 14:40:00 82.00 /min Respiratory Rate 2019-07-13 14:40:00 16.00 /min BP Systolic 2019-07-13 14:40:00 106 mm[Hg] Procedures Procedure Date / Time Performed Performing Clinician Source CBC WITH DIFF 2024-06-21 08:53:00 [facility] CBC WITH DIFF 2024-06-21 08:53:00 [facility] [id number] - [place] DELIVERY ONLY 2024-06-20 12:42:00 Adum, Debra Funes [facility] [id number] - [place] SALPINGECTOMY COMPLETE/PARTIAL UNI/BI SPX 2024-06-20 12:42:00 Adum, Debra Funes [facility] [id number] - [place]IV[place] ONLY 2024-06-20 12:42:00 Adum, Debra Funes [facility] [id number] - [place] SALPINGECTOMY COMPLETE/PARTIAL UNI/BI SPX 2024-06-20 12:42:00 Adum, Debra Funes [facility] POCT URINALYSIS W/O SPECIFIC GRAVITY 2024-06-16 21:18:00 Adum, Debra Funes [facility] POCT URINALYSIS W/O SPECIFIC GRAVITY 2024-06-09 14:22:00 Lori Amezcua [facility] RSV, BIVALENT, PROTEIN SUBUNIT RSVPREF, DILUENT RECONSTITUTED, 0.5 ML, PF, (ABRYSVO) 2024-05-12 18:33:01 Adum, Debra Funes [facility] POCT URINALYSIS W/O SPECIFIC GRAVITY 2024-05-12 00:00:00 Adum, Debra Funes [facility] TDAP VACCINE, >11 YRS, IM 2024-04-28 15:32:35 Adum, Pham Funes [facility] FLU VACC (), 6 MO-64 YRS, .5ML, IM, TIV (FLUCELVAX) 2024-04-28 15:32:35 Adum, Debra Funes [facility] SECOND AND THIRD TRIMESTER ULTRASOUND 2024-04-28 13:35:00 Adum, Debra Funes [facility] POCT URINALYSIS W/O SPECIFIC GRAVITY 2024-04-28 00:00:00 Adum, Debra Funes [facility] SECOND AND THIRD TRIMESTER ULTRASOUND 2024-03-24 14:55:00 Adum, eDbra Funes [facility] POCT URINALYSIS W/O SPECIFIC GRAVITY 2024-03-24 00:00:00 Lori Amezcua [facility] POCT URINALYSIS W/O SPECIFIC GRAVITY 2024-01-28 00:00:00 Adum, Debra Funes [facility] HEMOGLOBIN A1C-Q 2024-01-05 14:06:00 Adum, [facility]bra [facility]se [facility]INAL[facility] W/O SPECIFIC GRAVITY 2023-12-30 00:00:00 Adum, Debra Funes [facility] Computed tomography of head or brain without contrast 2023-12-26 23:14:00 TMR Computed tomography of cervical spine without contrast 2023-12-26 23:14:00 TMR US OB TRANSVAGINAL 2023-11-27 03:35:02 Adum, Debra Funes [facility] URINE DRUG (IMMUNOASSAY) - COMPREHENSIVE DRUG SCREEN 2023-11-26 21:50:00 Adum, Debra Shantel [facility] POCT TEST 2023-11-26 00:00:00 Adum, Debra Shantel [facility] POCT URINALYSIS W/O SPECIFIC GRAVITY 2023-11-26 00:00:00 Adum, Debra Shantel [facility] CONSENT FOR CONTRACEPTION 2022-11-23 05:01:00 Do ctor Unassigned, [place] [facility] POCT TEST 2022-11-23 00:00:00 Adore Quintana [facility] PATIENT FINANCIAL POLICY 2022-11-12 13:57:21 Doctor Unassigned, [place] [facility] POCT TEST 2022-11-12 00:00:00 Adore Quintana [facility] ASSIGNMENT OF BENEFITS 2022-10-06 22:22:13 Docto r Unassigned, [place] [facility] FIRST TRIMESTER LESS THAN 14 WEEKS WITH TRANSVAGINAL 2022-09-25 21:30:00 Sp Russo [facility] ASSIGNMENT OF BENEFITS 2022-09-25 18:35:23 Docto r Unassigned, [place] [facility] POCT TEST 2022-09-25 18:26:00 Daniel Russo [facility] COMP. METABOLIC PANEL ([id number]) 2022-09-25 18:21:00 Sp Russo [facility] TOTAL BETA HCG ASSAY 2022-09-25 18:21:00 Ariane Russo [facility] CBC WITH DIFF 2022-09-25 18:21:00 Sp Russo [facility] PROTHROMBIN TIME / INR 2022-09-25 18:21:00 George Russo [facility] ACTIVATED PARTIAL THRMPLAS LELAND 2022-09-25 18:21:00 Sp Russo [facility] URINALYSIS 2022-09-25 18:21:00 Sp Russo [facility] CONSENT/REFUSAL FOR DIAGNOSIS AND TREATMENT 2022-09-25 17:42:59 Doctor Unassigned, [place] [facility] PATIENT FINANCIAL RESPONSIBILITY - ALL FORMS 2022-09-18 06:01:00 Doctor Unassigned, [place] [facility] POCT TEST 2022-09-18 00:00:00 Adore Quintana [facility] POCT URINALYSIS 2022-07-16 19:05:00 [facility] 2022-07-16 19:01:00 Millie Paez [facility] CONSENT FOR CONTRACEPTION 2021-10-02 06:01:00 Do ctor Unassigned, [place] [facility] POCT TEST 2021-10-02 00:00:00 Praful Shetty [facility] POCT URINALYSIS W/O SPECIFIC GRAVITY 2021-09-01 00:00:00 Praful Shetty [facility] DSU PRE-OP 2021-08-25 06:01:00 Doctor Unass igned, [place] [facility] POCT URINALYSIS W/O SPECIFIC GRAVITY 2021-08-25 00:00:00 Praful Shetty [facility] FLU VACC (), 2-64 YRS, .5ML, IM, QUAD (FLUCELVAX) 2021-08-08 20:57:27 Praful Shetty [facility] TDAP VACCINE, >11 YRS, IM 2021-08-08 20:47:06 Connor Shetty [facility] POCT URINALYSIS W/O SPECIFIC GRAVITY 2021-08-08 00:00:00 Praful Shetty [facility] CBC WITH DIFF 2021-07-15 14:22:00 Praful Shetty [facility] EXTERNAL PROVIDER RECORDS 2021-07-10 06:01:00 Do ctor Unassigned, [place] [facility] POCT URINALYSIS W/O SPECIFIC GRAVITY 2021-05-30 00:00:00 Praful Shetty [facility] URINALYSIS 2021-05-22 19:09:00 Jocelynn Holcomb [facility] POCT GLUCOSE (AUTOMATED) 2021-05-22 18:20:00 Jocelynn Holcomb [facility] CONSENT/REFUSAL FOR DIAGNOSIS AND TREATMENT 2021-05-22 18:03:45 Doctor Unassigned, [place] [facility] POCT TEST 2021-05-02 00:00:00 Praful Shetty [facility] POCT URINALYSIS W/O SPECIFIC GRAVITY 2021-05-02 00:00:00 Praful Shetty [facility] CONSENT/REFUSAL FOR DIAGNOSIS AND TREATMENT 2021-04-22 16:28:23 Doctor Unassigned, [place] [facility] POCT URINALYSIS 2021-04-22 00:00:00 Soledad Deng [facility] Plan of Care Planned Activity Planned Date Details Comments Source Goal Plan of Care Note [code = 31792-6] Goal Plan of Care Note [code = 76007-7] Goal Plan of Care Note [code = 82117-7] Goal Plan of Care Note [code = 28830-4] Goal Plan of Care Note [code = 54072-7] Goal Plan of Care Note [code = 94874-4] Goal Plan of Care Note [code = 49088-8] Goal Plan of Care Note [code = 58505-7] Goal Plan of Care Note [code = 93379-9] Encounters Start Date/Time End Date/Time Encounter Type Admission Type Attending Clinicians Care Facility Care Department Encounter ID Source 2024-06-19 08:18:28 Outpatient P ADUM, DEBRA ADUM, DEBRA [facility] [id number] [facility] 2021-09-09 12:00:00 Inpatient P PRAFUL SHETTY [facility] [id number] [facility] 2021-09-09 12:00:00 Inpatient P SHETTYPRAFUL [facility] [id number] [facility] 2021-09-09 12:00:00 Inpatient P SHETTYPRAFUL [facility] [id number] [facility] 2021-07-01 00:54:37 Emergency [facility] [id number] [facility] 2024-08-04 14:15:00 2024-08-04 14:15:00 Outpatient R DEBRA SLOAN [facility] [id number] [facility] 2024-07-01 00:00:00 2024-07-01 14:34:42 Nurse Triage Juan Barcenas [place] T [facility] ..840.114 350.1.13.10 [id number] [facility] 2024-06-27 14:00:00 2024-06-27 14:00:00 Nurse Visit Nurse, [facility] Debra Sloan Nurse, [facility] 1..840.114 350.1.13.10 [id number] [id number] [facility] 2024-06-27 14:00:00 2024-06-27 13:45:39 Outpatient R DEBRA SLOAN [facility] [id number] [facility] 2024-05-18 00:00:00 2024-06-24 18:27:39 Patient Secure Msg Doctor Unassigned, [place] Doctor Unassigned, [place] [facility] ..840.114 350.1.13.10 4.2.7.2.686 [id number] [facility] 2024-06-20 06:08:00 2024-06-21 16:15:00 Inpatient R DEBRA SLOAN [facility] [id number] [facility] 2024-06-20 06:08:00 2024-06-21 16:15:00 Hospital Encounter Debra Sloan [facility] [id number] [id number] [id number] [facility] 2024-06-20 08:00:00 2024-06-20 10:48:00 Surgery Adsarai, Debra Funes [facility] [id number] [id number] 4.2.7.2.686 [id number] [facility] 2024-06-19 08:45:00 2024-06-19 09:00:00 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 Pob, [facility] AdsaraiDebra Shantel Pobasilio, [facility] [id number] 350.1.13.10 4.2.7.2.686 [id number] [facility] 2024-06-19 08:45:00 2024-06-19 08:45:00 Outpatient R ADUM, DEBRA ABADSARAI, [facility] [id number] [facility] 2024-06-16 16:00:00 2024-06-16 16:52:54 Outpatient R ADUM, DEBRA ABADSARAI, [facility] [id number] [facility] 2024-06-16 16:00:00 2024-06-16 16:52:54 Routine Visit Nathalia Debra Funes [facility] 1.2840.114 350.1.13.10 4.2.7.2.686 [id number] 134 [id number] [facility] 2024-06-16 00:00:00 2024-06-16 10:45:09 Telephone Adsarai Debra Funes [facility] 1.2.840.114 350.1.13.10 4.2.7.2.686 [id number] 134 [id number] [facility] 2024-06-09 13:45:00 2024-06-09 14:00:00 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 2, Adc Lab Lori Amezcua 2, Adc Lab [facility] 1.2.840.114 350.1.13.10 4.2.7.2.686 [id number] 353 [id number] [facility] 2024-06-09 13:45:00 2024-06-09 13:45:00 Outpatient R LORI AMEZCUA [facility] [id number] [facility] 2024-06-09 08:45:00 2024-06-09 09:45:16 Routine Visit Lori Amezcua [facility] 1.2.840.114 350.1.13.10 4.2.7.2.686 [id number] 134 [id number] [facility] 2024-06-02 09:30:00 2024-06-02 09:30:00 Outpatient R DEBRA SLOAN [facility] [id number] [facility] 2024-05-26 13:00:00 2024-05-26 14:09:48 Outpatient R DEBRA SLOAN [facility] [id number] [facility] 2024-05-26 13:00:00 2024-05-26 14:09:48 Routine Visit Debra Sloan [facility] 1.2.840.114 350.1.13.10 4.2.7.2.686 [id number] 134 [id number] [facility] 2024-05-17 00:00:00 2024-05-18 11:07:18 Telephone AdBrandon moonian Shantel [facility] 1.2.840.114 350.1.13.10 4.2.7.2.686 [id number] 134 [id number] [facility] 2024-05-12 13:15:00 2024-05-12 13:47:58 Outpatient R ADDEBRA MOON [facility] [id number] [facility] 2024-05-12 13:15:00 2024-05-12 13:47:58 Routine Visit Adum, Debra Funes [facility] 1.2.840.114 350.1.13.10 4.2.7.2.686 [id number] 134 [id number] [facility] 2024-05-12 08:00:00 2024-05-12 08:15:00 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 Pob, Adc Lab Main Adum, Debra Funes Pob, Adc Lab Main [facility]ILD[facility] 1.2.840.114 350.1.13.10 4.2.7.2.686 [id number] 353 [id number] [facility] 2024-04-28 11:00:00 2024-04-28 11:00:00 Routine Visit Adum, Debra Funes [facility] 1.2.840.114 350.1.13.10 4.2.7.2.686 [id number] 134 [id number] [facility] 2024-04-28 08:00:00 2024-04-28 08:31:36 Outpatient R ANTONIETA PASCUAL KARIN FOX, KARIN [facility] [id number] [facility] 2024-04-28 08:00:00 2024-04-28 08:31:36 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 Ultrasound, Antonieta Waldron [facility] DROP [facility] 1.2.840.114 350.1.13.10 4.2.7.2.686 [id number] [facility] 2024-04-07 08:45:00 2024-04-07 08:45:00 Outpatient R [facility] [id number] [facility] 2024-03-31 00:00:00 2024-03-31 16:16:58 Telephone Adum, Debra [facility] 1.2.840.114 350.1.13.10 4.2.7.2.686 [id number] 134 [id number] [facility] 2024-03-24 13:00:00 2024-03-24 13:00:00 Outpatient R DEBRA SLOAN [facility] [id number] [facility] 2024-03-24 11:00:00 2024-03-24 11:27:41 Routine Visit Lori Amezcua [facility] 1..840.114 350.1.13.10 4.2.7.2.686 [id number] 134 [id number] [facility] 2024-03-24 08:30:00 2024-03-24 09:38:19 Outpatient P EDI SILVA SHANNON [facility] [id number] [facility] 2024-03-24 08:30:00 2024-03-24 09:38:19 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 Ultrasound, Edi Squires [facility] DROP TESTER [facility] 1..840.114 350.1.13.10 4.2.7.2.686 [id number] [facility] 2024-03-13 14:00:00 2024-03-13 14:00:00 Outpatient P [facility] [id number] [facility] 2024-02-25 13:00:00 2024-02-25 13:00:00 [facility] [id number] [facility] 2023-12-30 00:00:00 2024-02-05 18:05:58 Patient Secure Msg Doctor Unassigned, [place] [facility] 1..840.114 350.1.13.10 4.2.7.2.686 [id number] 134 [id number] [facility] 2024-01-28 11:45:00 2024-01-28 12:00:00 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 2, Adc Lab Adum, Debra Funes [facility] 1.2.840.114 350.1.13.10 4.2.7.2.686 [id number] 353 [id number] [facility] 2024-01-28 11:15:00 2024-01-28 11:34:10 Outpatient R ADUM, DEBRA [facility] [id number] [facility] 2024-01-28 11:15:00 2024-01-28 11:34:10 Routine Visit Adum, Debra [facility] 1.2.840.114 350.1.13.10 4.2.7.2.686 [id number] 134 [id number] [facility] 2023-12-12 00:00:00 2024-01-15 18:09:06 Patient Secure Razia Sauceda [facility] DROP TESTER [facility] 1.2.840.114 350.1.13.10 4.2.7.2.686 [id number] [facility] 2024-01-11 00:00:00 2024-01-11 16:13:53 Telephone Adum, Debra Funse [facility] 1.2.840.114 350.1.13.10 4.2.7.2.686 [id number] 134 [id number] [facility] 2024-01-06 00:00:00 2024-01-06 14:15:09 Telephone Adum, Debra Funes [facility] 1.2.840.114 350.1.13.10 4.2.7.2.686 [id number] 134 [id number] [facility] 2024-01-05 00:00:00 2024-01-06 07:32:24 Orders Only Adum, Debra [facility] 1.2.840.114 350.1.13.10 4.2.7.2.686 [id number] [facility] 2024-01-05 00:00:00 2024-01-05 15:39:04 Telephone Adum, Debra Funes [facility] 1.2.840.114 350.1.13.10 4.2.7.2.686 [id number] 134 [id number] [facility] 2023-12-30 10:15:00 2023-12-30 10:30:00 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 2, Adc Lab Adum, Debra Funes [facility] 1.2.840.114 350.1.13.10 4.2.7.2.686 [id number] 353 [id number] [facility] 2023-12-30 10:15:00 2023-12-30 10:15:00 Outpatient R NATHALIA [facility] [id number] [facility] 2023-12-30 09:45:00 2023-12-30 10:09:13 Routine Visit Adum, Debra Funes [facility] 1.2.840.114 350.1.13.10 4.2.7.2.686 [id number] 134 [id number] [facility] 2023-12-30 00:00:00 2023-12-30 00:00:00 Case Management Adum, Debra Funes [facility] 1.2.840.114 350.1.13.10 4.2.7.2.686 [id number] 134 [id number] [facility] 2023-12-29 10:00:00 2023-12-29 10:00:00 Outpatient R RAZIA HE [facility] [id number] [facility] 2023-12-26 22:35:00 2023-12-27 00:33:00 [id number] [facility] 2023-12-26 22:35:00 2023-12-27 00:33:00 Departed Emergency Room [facility] HCIS [id number] R 2023-12-01 10:00:00 2023-12-01 10:57:25 Outpatient RAZIA MOSER [facility] [id number] [facility] 2023-12-01 10:00:00 2023-12-01 10:57:25 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 Lab, Smita-Rmp Razia He [facility] DROP TESTER [facility] .2.840.114 350.1.13.10 4.2.7.2.686 [id number] [facility] 2023-12-01 09:45:00 2023-12-01 09:45:00 Outpatient RAZIA MOSER [facility] [id number] [facility] 2023-11-26 14:30:00 2023-11-26 16:27:44 Outpatient R DEBRA SLOAN [facility] [id number] [facility] 2023-11-26 14:30:00 2023-11-26 16:27:44 Initial Visit Debra Sloan [facility] 1.2.840.114 350.1.13.10 4.2.7.2.686 [id number] 134 [id number] [facility] 2023-11-23 13:30:00 2023-11-23 13:30:00 Outpatient GENARO HARRIS [facility] [id number] [facility] 2023-11-16 09:15:00 2023-11-16 09:15:00 Outpatient MADDI SWAN [facility] [id number] [facility] 2023-11-16 08:45:00 2023-11-16 08:45:00 Outpatient R [facility] [id number] [facility] 2023-11-12 00:00:00 2023-11-12 00:00:00 Telephone Maddi Dempsey [facility] DROP TESTER [facility] 1.2.840.114 350.1.13.10 4.2.7.2.686 [id number] [facility] 2023-11-11 10:00:00 2023-11-11 10:00:00 Outpatient R MADDI DEMPSEY [facility] [id number] [facility] 2023-11-11 00:00:00 2023-11-11 00:00:00 Case Management Maddi Dempsey [facility] DROP TESTER [facility]ERNAL [facility] CHILD [facility] 1.2.840.114 350.1.13.10 4.2.7.2.686 [id number] [facility] 2023-11-11 00:00:00 2023-11-11 00:00:00 Telephone Maddi Dempsey [facility] DROP TESTER [facility] & CHILD [facility] 1.2.840.114 350.1.13.10 4.2.7.2.686 [id number] 123 [id number] [facility] 2023-11-09 09:11:00 2023-11-09 12:02:00 [id number] TEL 2023-11-09 09:11:00 2023-11-09 12:02:00 Emergency ER [facility] [id number] [facility] 2023-11-08 17:58:00 2023-11-08 23:19:00 Departed Emergency Room [id number] [facility] [id number] TEL 2023-11-08 17:58:00 2023-11-08 23:19:00 Emergency ER [facility] [id number] [facility]AO Freeman 2023-11-01 18:44:45 2023-11-01 18:44:45 Outpatient 2.16.540. [id number]. 19.2 2.16.540.1. [id number] [facility] 2023-11-01 00:00:00 2023-11-01 00:00:00 Outpatient Adrián Milena [facility] [id number] [facility] 2023-09-29 15:00:00 2023-09-29 15:00:00 Outpatient ASHOK ROLLE MARGARITA [facility] [id number] [facility] 2023-07-01 00:00:00 2023-07-01 00:00:00 Outpatient Adrián Milena [facility] [id number] [facility] 2023-04-09 14:12:12 2023-04-09 14:12:12 Outpatient SFA [facility] [id number] Travis Chen Tony 2023-04-07 14:46:11 2023-04-07 14:46:11 Outpatient SFA [facility] [id number] Travis F Tony 2023-02-18 15:47:39 2023-02-18 15:47:39 Outpatient SFA SFA [id number] Travis F Tony 2023-02-16 13:00:00 2023-02-16 13:00:00 Outpatient R CHITRA QUINTANA CHERYAL [facility] [id number] [facility] 2023-01-07 16:38:08 2023-01-07 16:38:08 Outpatient SFA SFA [id number] Travis F Tony 2022-11-23 14:00:00 2022-11-23 14:02:06 Outpatient R CHITRA QUINTANA CHERYAL [facility] [id number] [facility] 2022-11-23 14:00:00 2022-11-23 14:02:06 Office Visit LenaAsyaharjinder [facility] 1.2.840.114 350.1.13.10 4.2.7.2.686 [id number] 134 [id number] [facility] 2022-11-23 00:00:00 2022-11-23 00:00:00 Orders Only Doctor Unassigned, [place] [facility] 1.2.840.114 350.1.13.10 4.2.7.2.686 [id number] [facility] 2022-11-16 10:00:00 2022-11-16 10:00:00 Outpatient R [facility]ITRA [facility] [id number] [facility] 2022-11-12 09:30:00 2022-11-12 09:30:00 Office Visit Chitra Quintana [facility] 1.2.840.114 350.1.13.10 4.2.7.2.686 [id number] 134 [id number] [facility] 2022-11-12 09:30:00 2022-11-12 09:21:15 Outpatient R CHITRA QUINTANA CHERYAL [facility] [id number] [facility] 2022-11-12 00:00:00 2022-11-12 00:00:00 Orders Only Doctor Unassigned, [place] [facility] 1.2.840.114 350.1.13.10 4.2.7.2.686 [id number] [facility] 2022-10-21 13:00:00 2022-10-21 13:00:00 Outpatient R CHITRA QUINTANA CHERYAL [facility] [id number] [facility] 2022-10-12 00:00:00 2022-10-12 00:00:00 Patient Secure Msg Doctor Unassigned, [place] [facility] 1.2.840.114 350.1.13.10 4.2.7.2.686 [id number] 134 [id number] [facility] 2022-10-09 00:00:00 2022-10-09 00:00:00 Telephone Chitra Quintana [facility] 1.2.840.114 350.1.13.10 4.2.7.2.686 [id number] 134 [id number] [facility] 2022-10-08 14:00:00 2022-10-08 14:00:00 Outpatient PRAFUL JHAVERI [facility] [id number] [facility] 2022-10-08 14:00:00 2022-10-08 14:00:00 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 Lab[facility] 1.2840.114 350.1.13.10 4.2.7.2.686 [id number] 353 [id number] [facility] 2022-10-06 16:00:00 2022-10-06 17:01:36 Office Visit Chitra Quintana [facility] 1.2.840.114 350.1.13.10 4.2.7.2.686 [id number] 134 [id number] [facility] 2022-10-06 16:00:00 2022-10-06 17:01:36 Outpatient R [facility] [id number] [facility] 2022-10-06 00:00:00 2022-10-06 00:00:00 Orders Only Doctor Unassigned, [place] [facility] 1.2.840.114 350.1.13.10 4.2.7.2.686 [id number] [facility] 2022-09-29 16:00:00 2022-09-29 16:00:00 Outpatient PRAFUL JHAVERI [facility] [id number] [facility] 2022-09-25 11:49:00 2022-09-25 16:29:00 Emergency X SP RUSSO [facility] ERT [id number] [facility] 2022-09-25 11:49:00 2022-09-25 16:29:00 Emergency Sp Russo [facility] 1.840.114 350.1.13.10 4.2.7.2.686 [id number] [facility] 2022-09-25 00:00:00 2022-09-25 00:00:00 Telephone Praful Shetty [facility] BUILDING 1..114 350.1.13.10 4.2.7.2.686 [id number] 134 [id number] [facility] 2022-09-25 00:00:00 2022-09-25 00:00:00 Patient Secure Msg Doctor Unassigned, [place] [facility] 1..114 350.1.13.10 4.2.7.2.686 [id number] 134 [id number] [facility] 2022-09-21 00:00:00 2022-09-21 00:00:00 Patient Secure Msg Praful Shetty [facility] BUILDING 1.0.114 350.1.13.10 4.2.7.2.686 [id number] 134 [id number] [facility] 2022-09-18 12:15:00 2022-09-18 12:30:00 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 Lab, Chitra Rush [facility] 1..114 350.1.13.10 4.2.7.2.686 [id number] [facility] 2022-09-18 12:15:00 2022-09-18 12:15:00 Outpatient R CHITRA QUINTANA CHERYAL [facility] [id number] [facility] 2022-09-18 11:30:00 2022-09-18 11:41:50 Office Visit Chitra Quintana [facility] 1.114 350.1.13.10 4.2.7.2.686 [id number] 134 [id number] [facility] 2022-09-18 00:00:00 2022-09-18 00:00:00 Orders Only Doctor Unassigned, [place] [facility] 1.114 350.1.13.10 4.2.7.2.686 [id number] [facility] 2022-09-15 14:42:40 2022-09-15 14:42:40 Outpatient SFA [facility] [id number] Travis Jimenez 2022-09-15 00:00:00 2022-09-15 00:00:00 Outpatient Visit [id number] 2022-09-11 00:00:00 2022-09-11 00:00:00 Pre Visit Outreach Marily Leona [facility] 1..114 350.1.13.10 4.2.7.2.686 [id number] [facility] 2022-07-16 12:30:00 2022-07-16 13:44:23 Outpatient R MEKHI BERRY III [facility] [id number] [facility] 2022-07-16 12:30:00 2022-07-16 13:44:23 Urgent Care Mekhi Berry Unknown, Attending [facility] 1..114 350.1.13.10 4.2.7.2.686 [id number] [facility] 2022-05-13 13:30:00 2022-05-13 13:30:00 Outpatient R PRAFUL SHETTY [facility] [id number] [facility] 2021-12-12 10:00:00 2021-12-12 10:00:00 Outpatient R PRAFUL SHETTY [facility] [id number] [facility] 2021-12-04 00:00:00 2021-12-04 00:00:00 Telephone Praful Shetty [facility] 1.0.114 350.1.13.10 4.2.7.2.686 [id number] 134 [id number] [facility] 2021-10-02 13:00:00 2021-10-02 13:30:00 Office Visit Praful Shetty [facility] 1.840.114 350.1.13.10 4.2.7.2.686 [id number] 134 [id number] [facility] 2021-10-02 13:00:00 2021-10-02 13:00:00 Outpatient R PRAFUL SHETTY [facility] [id number] [facility] 2021-10-02 00:00:00 2021-10-02 00:00:00 Orders Only Doctor Unassigned, [place] [facility] 1.0.114 350.1.13.10 4.2.7.2.686 [id number] [facility] 2021-10-01 13:15:00 2021-10-01 13:22:09 Outpatient R PRAFUL SHETTY [facility] [id number] [facility] 2021-10-01 13:15:00 2021-10-01 13:22:09 Routine Visit Praful Shetty [facility] BUILDING 1.840.114 350.1.13.10 4.2.7.2.686 [id number] [facility] 2021-09-24 00:00:00 2021-09-24 00:00:00 [facility] 1.2.840.114 350.1.13.10 4.2.7.2.686 [id number] 134 [id number] [facility] 2021-09-22 00:00:00 2021-09-22 00:00:00 Patient Secure Msg [facility] 1.2.840.114 350.1.13.10 4.2.7.2.686 [id number] 134 [id number] [facility] 2021-09-17 10:30:00 2021-09-17 10:58:16 Outpatient R MIKAELA VI [facility] [id number] [facility] 2021-09-17 10:30:00 2021-09-17 10:58:16 Routine Visit Kavitafabrizio Vi [facility] 1.2.840.114 350.1.13.10 4.2.7.2.686 [id number] 134 [id number] [facility] 2021-09-16 00:00:00 2021-09-16 00:00:00 Patient Secure Msg Praful Shetty [facility] 1.2.840.114 350.1.13.10 4.2.7.2.686 [id number] 134 [id number] [facility] 2021-09-09 12:00:00 2021-09-12 14:25:00 Inpatient P PRAFUL SHETTY [facility] LYNN [id number] [facility] 2021-09-09 12:00:00 2021-09-12 14:25:00 Hospital Encounter Praful Shetty [facility] 1.2.840.114 350.1.13.10 4.2.7.2.686 [id number] [id number] [facility] 2021 16:52:00 2021 19:44:00 Anesthesia Event Dell Sin David K [facility] 1.2.840.114 350.1.13.10 4.2.7.2.686 [id number] 013 [id number] [facility] 2021 19:04:00 2021 19:04:00 [facility] 1.2.840.114 350.1.13.10 4.2.7.2.686 [id number] 083 [id number] [facility] 2021 19:04:00 2021 19:04:00 [facility] 1.2.840.114 350.1.13.10 4.2.7.2.686 [id number] 083 [id number] [facility] 2021 18:39:00 2021 18:39:00 Anesthesia Event Alexander Gold [facility] 1.2.840.114 350.1.13.10 4.2.7.2.686 [id number] 013 [id number] [facility] 2021 16:52:00 2021 16:52:00 Anesthesia Event Micah Sinian Alexander Gold [facility] 1.2.840.114 350.1.13.10 4.2.7.2.686 [id number] [id number] [facility] 2021 16:52:00 2021 16:52:00 Anesthesia Event Micah Sinian Alexander Gold [facility] 1.2.840.114 350.1.13.10 4.2.7.2.686 [id number] 083 [id number] [facility] 2021 00:00:00 2021 00:00:00 Surgery Praful Shetty [facility] 1.2.840.114 350.1.13.10 4.2.7.2.686 [id number] [id number] [facility] 2021-09-09 12:00:00 2021-09-09 12:00:00 Inpatient P PRAFUL SHETTY [facility] LYNN [id number] [facility] 2021-09-08 14:00:00 2021-09-08 14:15:00 Laboratory Only Only, Adc Test Praful Shetty [facility] 1.2.840.114 350.1.13.10 4.2.7.2.686 [id number] [facility] 2021-09-08 14:00:00 2021-09-08 14:00:00 Outpatient R PRAFUL SHETTY [facility] [id number] [facility] 2021-09-08 10:45:00 2021-09-08 10:45:00 Outpatient R PRAFUL SHETTY [facility] [id number] [facility] 2021-09-08 10:45:00 2021-09-08 10:45:00 Routine Visit Praful Shetty [facility] 1.2.840.114 350.1.13.10 4.2.7.2.686 [id number] 134 [id number] [facility] 2021-09-08 10:45:00 2021-09-08 10:44:45 Outpatient R PRAFUL SHETTY [facility] [id number] [facility] 2021-09-08 10:45:00 2021-09-08 10:44:45 Outpatient R PRAFUL SHETTY [facility] L[facility]NN [id number] [facility] 2021-09-01 10:45:00 2021-09-01 11:37:28 Outpatient R PRAFUL SHETTY [facility] [id number] [facility] 2021-09-01 10:45:00 2021-09-01 11:37:28 Routine [facility] 1.2840.114 350.1.13.10 4.2.7.2.686 [id number] 134 [id number] [facility] 2021-08-25 14:00:00 2021-08-25 14:00:00 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 2, Adc Lab Praful Shetty [facility] 1.2840.114 350.1.13.10 4.2.7.2.686 [id number] [facility] 2021-08-25 13:00:00 2021-08-25 13:37:31 Outpatient R PRAFUL SHETTY [facility] [id number] [facility] 2021-08-25 13:00:00 2021-08-25 13:37:31 Routine Visit Praful Shetty [facility] 1.20.114 350.1.13.10 4.2.7.2.686 [id number] 134 [id number] [facility] 2021-08-25 00:00:00 2021-08-25 00:00:00 Orders Only Doctor Unassigned, [place] [place] 1.2840.114 350.1.13.10 4.2.7.2.686 [id number] [facility] 2021-08-08 14:45:00 2021-08-08 15:23:33 Outpatient R PRAFUL SHETTY [facility] [id number] [facility] 2021-08-08 14:32:59 2021-08-08 15:23:33 Routine Visit Praful Shetty [facility] 1.20.114 350.1.13.10 4.2.7.2.686 [id number] 134 [id number] [facility] 2021-08-07 00:00:00 2021-08-07 00:00:00 Telephone Praful Shetty [facility] 1.2840.114 350.1.13.10 4.2.7.2.686 [id number] 134 [id number] [facility] 2021-07-15 08:30:00 2021-07-15 08:30:00 Outpatient R PRAFUL SHETTY [facility] [id number] [facility] 2021-07-15 08:08:47 2021-07-15 08:23:47 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 Pob, Adc Lab Main Praful Shetty [facility] 1.2840.114 350.1.13.10 4.2.7.2.686 [id number] [facility] 2021-07-15 00:00:00 2021-07-15 00:00:00 Case Management Vi Pedro [facility] 1.2840.114 350.1.13.10 4.2.7.2.686 [id number] 134 [id number] [facility] 2021-07-10 00:00:00 2021-07-10 00:00:00 Orders Only Doctor Unassigned, [place] 1.2.840.114 350.1.13.10 4.2.7.2.686 [id number] [facility] 2021-06-26 00:00:00 2021-06-26 00:00:00 Telephone Praful Shetty [facility] 1.2840.114 350.1.13.10 4.2.7.2.686 [id number] 134 [id number] [facility] 2021-06-23 00:00:00 2021-06-23 00:00:00 Patient Secure Msg Praneeth Praful [facility] 1.2840.114 350.1.13.10 4.2.7.2.686 [id number] 134 [id number] [facility] 2021-05-30 12:57:18 2021-05-30 13:57:18 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 Ultrasound, Adc m [facility] 1.2.840.114 350.1.13.10 4.2.7.2.686 [id number] 134 [id number] [facility] 2021-05-30 12:30:00 2021-05-30 12:30:00 Outpatient R PRAFUL SHETTY [facility] [id number] [facility] [facility] 11:53:50 2021-05-30 12:08:50 Routine Visit Praneeth Praful Avalos [facility] 1.2.840.114 350.1.13.10 4.2.7.2.686 [id number] 134 [id number] [facility] 2021-05-22 13:15:00 2021-05-22 15:27:00 [facility] 1.2.840.114 350.1.13.10 4.2.7.2.686 [id number] [id number] [facility] 2021-05-22 00:00:00 2021-05-22 00:00:00 Telephone ShettyPraful Robbie [facility] 1.2.840.114 350.1.13.10 4.2.7.2.686 [id number] 134 [id number] [facility] 2021-05-07 15:00:00 2021-05-07 15:00:00 Outpatient ADOLFO ROSENTHAL [facility] [id number] [facility] 2021-05-02 14:10:00 2021-05-02 14:10:00 Outpatient ADOLFO ROSENTHAL [facility] [id number] [facility] 2021-05-02 12:00:19 2021-05-02 13:17:31 Initial Visit Praful Shetty [facility] 1.2840.114 350.1.13.10 4.2.7.2.686 [id number] 134 [id number] [facility] 2021-05-02 12:30:00 2021-05-02 12:30:00 Outpatient R PRAFUL SHETTY [facility] [id number] [facility] 2021-04-24 00:00:00 2021-04-24 00:00:00 Patient Secure Msg Doctor Unassigned, [place] 1.2840.114 350.1.13.10 4.2.7.2.686 [id number] 019 [id number] [facility] 2021-04-23 00:00:00 2021-04-23 00:00:00 Letter (Out) Goldie Cervantes [place] 1.2840.114 350.1.13.10 4.2.7.2.686 [id number] 019 [id number] [facility] 2021-04-23 00:00:00 2021-04-23 00:00:00 Patient Secure Msg Doctor Unassigned, [place] 1.2840.114 350.1.13.10 4.2.7.2.686 [id number] 019 [id number] [facility] 2021-04-22 11:29:38 2021-04-22 11:49:38 [facility] 1.2840.114 350.1.13.10 4.2.7.2.686 [id number] [facility] 2021-04-22 11:30:00 2021-04-22 11:30:00 Outpatient VIVIANA LOCO [facility] [id number] [facility] 2021-04-22 00:00:00 2021-04-22 00:00:00 Orders Only Doctor Unassigned, [place] 1.2.840.114 350.1.13.10 4.2.7.2.686 [id number] 009 [id number] [facility] Results Test Description Test Time Test Comments Results Result Co mments Source [facility] Cwjomjoaueqx9993-19-38 09:25:38* Test Item Value Reference Range Interpretation Comme nts WBC (test code = 6690-2) 9.33 4.30-11.10 RBC (test code = 789-8) 3.88 3.93-5.25 L HGB (test code = 718-7) 10.5 g/dL 11.6-15.0 L HCT (test code = 4544-3) 32.4 % 35.7-45.2 L MCV (test code = 787-2) 83.5 fL 80.6-95.5 MCH (test code = 785-6) 27.1 pg 25.9-32.8 MCHC (test code = 786-4) 32.4 g/dL 31.6-35.1 RDW-SD (test code = 10108-2) 44.9 fL 39.0-49.9 RDW-CV (test code = 788-0) 15.2 % 12.0-15.5 PLT (test code = 777-3) 277 166-358 MPV (test code = 56696-4) 11.2 fL 9.5-12.9 NRBC/100 WBC (test code = 1047135718) 0.0 0.0-10.0 NRBC x10^3 (test code = 0112889253) See_Comment [Automated messa ge] The system which generated this result transmitted reference range: 10*3/?L. The reference range was not used to interpret this result as normal/abnormal. GRAN MAT (NEUT) % (test code = 770-8) 66.9 % IMM GRAN % (test code = 6128455663) 0.50 % LYMPH % (test code = 736-9) 23.5 % MONO % (test code = 5905-5) 7.7 % EOS % (test code = 713-8) 1.0 % BASO % (test code = 706-2) 0.4 % GRAN MAT x10^3(ANC) (test code = 5389109649) 6.24 10*3/uL 1.88-7.09 IMM GRAN x10^3 (test code = 8170378205) 0.05 10*3/uL 0.00-0.06 LYMPH x10^3 (test code = 731-0) 2.19 10*3/uL 1.32-3.29 MONO x10^3 (test code = 742-7) 0.72 10*3/uL 0.33-0.92 EOS x10^3 (test code = 711-2) 0.09 10*3/uL 0.03-0.39 BASO x10^3 (test code = 704-7) 0.04 10*3/uL 0.01-0.07 Lab Interpretation (test code = 04916-0) Abnormal [facility] Urinalysis w/o Specific Vwkowef9508-44-73 21:22:00* Test Item Value Reference Range Interpretation Comme nts POCT PH U (test code = 3254) 5 mg/dl 5-8 POCT U LEUK EST (test code = 3263) trace Negative - Negative POCT U NIT (test code = 3262) negative Negative - Negati ve POCT U PROT (test code = 3259) negative Negative - Negat aixa POCT U GLU (test code = 3256) negative Negative - Negati ve POCT U KETONE (test code = 3258) negative Negative - Neg ative POCT U BLD (test code = 3257) negative Negative - Negati ve Lab Interpretation (test cod e = 62721-5) Abnormal [facility] Urinalysis w/o Specific Wywladc1390-30-09 14:22:00* Test Item Value Reference Range Interpretation Comme nts POCT PH U (test code = 3254) n/a 5-8 POCT U LEUK EST (test code = 3263) n/a Negative - Negative POCT U NIT (test code = 3262) n/a Negative - Negati ve POCT U PROT (test code = 3259) negative Negative - Negat aixa POCT U GLU (test code = 3256) negative Negative - Negati ve POCT U KETONE (test code = 3258) n/a Negative - Neg ative POCT U BLD (test code = 3257) n/a Negative - Negati ve [facility] Urinalysis w/o Specific Npzrxqw4494-33-02 18:20:00* Test Item Value Reference Range Interpretation Comme nts POCT PH U (test code = 3254) n/a 5-8 POCT U LE[place] EST (test code = 3263) n/a Negative - Negative POCT U NIT (test code = 3262) n/a Negative - Negati ve POCT U PROT (test code = 3259) trace Negative - Negat aixa POCT U GLU (test code = 3256) negative Negative - Negati ve POCT U KETONE (test code = 3258) n/a Negative - Neg ative POCT U BLD (test code = 3257) n/a Negative - Negati ve [facility] Urinalysis w/o Specific Hxunpch7032-80-86 15:28:00* Test Item Value Reference Range Interpretation Comme nts POCT PH U (test code = 3254) n/a 5-8 POCT U LEUK EST (test code = 3263) n/a Negative - Negative POCT U NIT (test code = 3262) n/a Negative - Negati ve POCT U PROT (test code = 3259) negative Negative - Negat aixa POCT U GLU (test code = 3256) normal Negative - Negati ve POCT U KETONE (test code = 3258) n/a Negative - Neg ative POCT U BLD (test code = 3257) n/a Negative - Negati ve [facility] Urinalysis w/o Specific Vxmknrg8843-61-62 15:53:00* Test Item Value Reference Range Interpretation Comme nts POCT PH U (test code = 3254) n.a 5-8 POCT U LEUK EST (test code = 3263) n.a Negative - Negative POCT U NIT (test code = 3262) n.a Negative - Negati ve POCT U PROT (test code = 3259) negative Negative - Negat aixa POCT U GLU (test code = 3256) negative Negative - Negati ve POCT U KETONE (test code = 3258) n.a Negative - Neg ative POCT U BLD (test code = 3257) n.a Negative - Negati ve [facility] Specific Bzpuape1095-19-77 16:11:00* Test Item Value Reference Range Interpretation Comme nts POCT PH U (test code = 3254) n/a 5-8 POCT U LEUK EST (test code = 3263) n/a Negative - Negative POCT U NIT (test code = 3262) n/a Negative - Negati ve POCT U PROT (test code = 3259) negative Negative - Negat aixa POCT U GLU (test code = 3256) negative Negative - Negati ve POCT U KETONE (test code = 3258) n/a Negative - Neg ative POCT U BLD (test code = 3257) n/a Negative - Negati ve [facility] w/o Specific Hcwalom3522-15-64 16:11:00* Test Item Value Reference Range Interpretation Comme nts POCT PH U (test code = 3254) n/a 5-8 POCT U LEUK EST (test code = 3263) n/a Negative - Negative POCT U NIT (test code = 3262) n/a Negative - Negati ve POCT U PROT (test code = 3259) negative Negative - Negat aixa POCT U GLU (test code = 3256) negative Negative - Negati ve POCT U KETONE (test code = 3258) n/a Negative - Neg ative POCT U BLD (test code = 3257) n/a Negative - Negati ve [facility] [id number] 12:00:00* Test Item Value Reference Range Interpretation Comme nts HEMOGLOBIN A1c-Q (test code = 4548-4) 5.6 See_Comment For the purpose of screening for the presence ofdiabetes: <5.7% ? ? ? Consistent with the absence of diabetes5.7-6.4% ? ?Consistent with increased risk for diabetes ?(prediabetes)> or =6.5% ?Consistent with diabetes This assay result is consistent with a decreased riskof diabetes. Currently, no consensus exists regarding use ofhemoglobin A1c for diagnosis of diabetes in children. According to [employer] Diabetes Association (ADA)guidelines, hemoglobin A1c <7.0% represents optimalcontrol in non- diabetic patients. Differentmetrics may apply to specific patient populations. Standards of Medical Care in Diabetes(ADA). ? REPORT COMMENT:FASTING:YES [Automated message] The system which generated this result transmitted reference range: <5.7 % of total Hgb. The reference range was not used to interpret this result as normal/abnormal. BASSEM (test code = BASSEM) PERFORMED BY [employer]; [address] [place] [id number]; ESTELLE FLOWER MD,PHD. [facility] Urinalysis w/o Specific Hyioxpi5948-49-07 14:34:00* Test Item Value Reference Range Interpretation Comme nts POCT PH U (test code = 3254) n/a 5-8 POCT U LEUK EST (test code = 3263) n/a Negative - Negative POCT U NIT (test code = 3262) n/a Negative - Negati ve POCT U PROT (test code = 3259) trace Negative - Negat aixa POCT U GLU (test code = 3256) negative Negative - Negati ve POCT U KETONE (test code = 3258) n/a Negative - Neg ative POCT U BLD (test code = 3257) n/a Negative - Negati ve [facility] Urinalysis w/o Specific Zobpibv7006-99-13 21:17:00* Test Item Value Reference Range Interpretation Comme nts POCT PH U (test code = 3254) n/a 5-8 POCT U LEUK EST (test code = 3263) n/a Negative - N egative POCT U NIT (test code = 3262) n/a Negative - Negati ve POCT U PROT (test code = 3259) neg Negative - Negat aixa POCT U GLU (test code = 3256) neg Negative - Negati ve POCT U KETONE (test code = 3258) n/a Negative - Neg ative POCT U BLD (test code = 3257) n/a Negative - Negati ve [facility] Dewm3726-78-25 21:17:00* Test Item Value Reference Range Interpretation Comme nts POCT PREG (test code = 1605) Positive On board controls acceptable with C Line (test code = 3574) Yes POCT PREG LOT # (test code = 3575) POCT PREG TEST DATE ( test code = 3576) [facility] Urinalysis w/o Specific Mhssxvj3793-20-92 21:17:00* Test Item Value Reference Range Interpretation Comme nts POCT PH U (test code = 3254) n/a 5-8 POCT U LEUK EST (test code = 3263) n/a Negative - N egative POCT U NIT (test code = 3262) n/a Negative - Negati ve POCT U PROT (test code = 3259) neg Negative - Negat aixa POCT U GLU (test code = 3256) neg Negative - Negati ve POCT U KETONE (test code = 3258) n/a Negative - Neg ative POCT U BLD (test code = 3257) n/a Negative - Negati ve [facility] [id number] 21:17:00* Test Item Value Reference Range Interpretation Comme nts POCT PREG (test code = 1605) Positive On board controls acceptable with C Line (test code = 3574) Yes POCT PREG LOT # (test code = 3575) POCT PREG TEST DATE ( test code = 3576) [facility] or plasma beta choriogonadotropin measurement (units/volume)2023-11-09 09:57:00* Test Item Value Reference Range Interpretation Comme nts Human Chorionic Gonadotropin , Quant (test code = 99245-8) 31514.3 See Comment TELUrinalysis specimen collection [id number] 09:05:00* Test Item Value Reference Range Interpretation Comme nts Urine Source (test code = 27139-6) URINE TELColor [id number] 09:05:00* Test Item Value Reference Range Interpretation Comme nts Urine Color (test code = 5778-6) Yellow Yel-Stacey * TELUrine clarity zwdklzyczybgu1059-70-99 09:05:00* Test Item Value Reference Range Interpretation Comme nts Urine Appearance (test code = 92250-3) Clear Clear * TELUrine pH measurement by automated test npsog4351-57-42 09:05:00* Test Item Value Reference Range Interpretation Comme nts Urine pH (test code = 89694-7) 5.0 5.0-8.0 TELSpecific gravity of Urine by Test tqsbd8168-31-16 09:05:00* Test Item Value Reference Range Interpretation Comme nts Urine Specific [place] (test code = 5811-5) 1.025 1.005-1.030 TELUrine protein measurement by test strip (mass/volume)2023-11-09 09:05:00* Test Item Value Reference Range Interpretation Comme nts Urine Protein (test code = 5804-0) Trace Negative * TELGlucose [Mass/volume] in Urine by Test mfkhb4972-18-36 09:05:00* Test Item Value Reference Range Interpretation Comme nts Urine Glucose (UA) (test code = 5792-7) 30 Negativ e * TELKetones [Mass/volume] in Urine by Test dtegc6974-77-63 09:05:00* Test Item Value Reference Range Interpretation Comme nts Urine Ketones (test code = 5797-6) Negative Negative * TELErythrocytes [#/volume] in Urine by Test saurc4992-33-70 09:05:00* Test Item Value Reference Range Interpretation Comme nts Urine Occult Blood (test cod e = 27077-5) Trace Negative * TELUrine nitrite detection by test hfqvu1691-09-18 09:05:00* Test Item Value Reference Range Interpretation Comme nts Urine Nitrite (test code = 5802-4) Negative Negative TELUrine total bilirubin measurement by test strip (mass/volume)2023-11-09 09:05:00* Test Item Value Reference Range Interpretation Comme nts Urine Bilirubin (test code = 28828-8) Negative Negative TELUrobilinogen [Mass/volume] in Urine by Test oastz6121-89-84 09:05:00* Test Item Value Reference Range Interpretation Comme nts Urine Urobilinogen (test cod e = 20019-7) Negative 0.0-1.0 TELLeukocytes [#/volume] in Urine by Test aqvzq8185-33-49 09:05:00* Test Item Value Reference Range Interpretation Comme nts Urine Leukocyte Esterase (te st code = 02704-0) Trace Negative TELMicroscopic examination of pznzm0849-55-32 09:05:00* Test Item Value Reference Range Interpretation Comme nts Microscopic Urinalysis (T) ( test code = 60825-0) ----- TELUrine sediment erythrocyte count by microscopy (number/high power field) 2023-11-09 09:05:00* Test Item Value Reference Range Interpretation Comme nts Urine RBC (test code = 23789-0) 0-2 0-2 TELUrine sediment leukocyte count by microscopy (number/high power field) 2023-11-09 09:05:00* Test Item Value Reference Range Interpretation Comme nts Urine WBC (test code = 5821-4) 0-5 0-5 TELUrine sediment epithelial cell count by microscopy (number/high power field) 2023-11-09 09:05:00* Test Item Value Reference Range Interpretation Comme nts Urine Epithelial Cells (test code = 5787-7) Few Few TELUrine sediment crystal count by microscopy (number/high power field) 2023-11-09 09:05:00* Test Item Value Reference Range Interpretation Comme nts Urine Crystals (test code = 05994-0) None Seen None * TELUrine sediment bacteria count by microscopy (number/high power field) 2023-11-09 09:05:00* Test Item Value Reference Range Interpretation Comme nts Urine Bacteria (test code = 5769-5) Many None TELUrine sediment casts count by microscopy (number/low power field)2023-11-09 09:05:00* Test Item Value Reference Range Interpretation Comme nts Urine Casts (test code = 9842-6) Present None * TELUrine sediment hyaline cast count by microscopy (number/low power field) 2023-11-09 09:05:00* Test Item Value Reference Range Interpretation Comme nts Urine Hyaline Casts (test co de = 5796-8) 6-10 0-1 TELYeast detection in urine sediment by light smabvqreza8878-66-19 09:05:00* Test Item Value Reference Range Interpretation Comme nts Urine Yeast (test code = 68875-8) None Seen None TELService comment 09:05:00* Test Item Value Reference Range Interpretation Comme nts Urinalysis Comment (test code = 8262-8) * See_Comment [Automated messa ge] The system which generated this result transmitted reference range: *. The reference range was not used to interpret this result as normal/abnormal. TELHCG ur jltizrcqw8571-38-56 09:05:00* Test Item Value Reference Range Interpretation Comme nts Urine Test (test c ode = 2106-3) Positive Negative TELService comment 20:59:00* Test Item Value Reference Range Interpretation Comme nts Urine Culture Indicated (marjan t code = 8264-4) To follow TELUrinalysis specimen collection lxfbka1242-43-18 20:59:00* Test Item Value Reference Range Interpretation Comme nts Urine Source (test code = 08872-7) URINE TELColor of Urine by Htyj1787-98-19 20:59:00* Test Item Value Reference Range Interpretation Comme nts Urine Color (test code = 28346-2) Yellow Yel-Stacey * TELUrine clarity rgnmwvjdayoxh3146-73-28 20:59:00* Test Item Value Reference Range Interpretation Comme nts Urine Appearance (test code = 18693-8) Clear Clear * TELUrine pH measurement by automated test [id number] 20:59:00* Test Item Value Reference Range Interpretation Comme nts Urine pH (test code = 88226-7) 5.5 5.0-8.0 TELSpecific gravity of Urine by Automated test ldvtm8936-74-50 20:59:00* Test Item Value Reference Range Interpretation Comme nts Urine Specific [place] (test code = 16823-7) 1.019 1.005-1.030 TELUrine protein measurement by automated test strip (mass/volume)2023-11-08 20:59:00* Test Item Value Reference Range Interpretation Comme nts Urine Protein (test code = 16847-7) Negative Negative * TELUrine glucose measurement by automated test strip (mass/volume)2023-11-08 20:59:00* Test Item Value Reference Range Interpretation Comme nts Urine Glucose (UA) (test cod e = 45293-1) Negative Negative * TELKetones [Mass/volume] in Urine by Automated test nufmk4786-28-73 20:59:00* Test Item Value Reference Range Interpretation Comme nts Urine Ketones (test code = 63534-9) Negative Negative * TELUrine erythrocytes count by automated test strip (number/volume)2023-11-08 20:59:00* Test Item Value Reference Range Interpretation Comme nts Urine Occult Blood (test cod e = 64099-9) Negative Negative * TELUrine nitrite detection by automated test kjuqt7649-08-87 20:59:00* Test Item Value Reference Range Interpretation Comme nts Urine Nitrite (test code = 46724-6) Negative Negative TELUrine total bilirubin measurement by automated test strip (mass/volume) 2023-11-08 20:59:00* Test Item Value Reference Range Interpretation Comme nts Urine Bilirubin (test code = 42239-8) Negative Negative TELUrine urobilinogen measurement by automated test strip (mass/volume) 2023-11-08 20:59:00* Test Item Value Reference Range Interpretation Comme nts Urine Urobilinogen (test cod e = 92429-7) Negative 0.0-1.0 TELUrine leukocytes count by automated test strip (number/volume)2023-11-08 20:59:00* Test Item Value Reference Range Interpretation Comme nts Urine Leukocyte Esterase (te st code = 08545-4) 500 Negative TELUrine sediment erythrocyte count by microscopy (number/high power field) 2023-11-08 20:59:00* Test Item Value Reference Range Interpretation Comme nts Urine RBC (test code = 87987-9) 0-2 0-2 TELUrine sediment leukocyte count by microscopy (number/high power field) 2023-11-08 20:59:00* Test Item Value Reference Range Interpretation Comme nts Urine WBC (test code = 5821-4) 21-40 0-5 TELUrine sediment epithelial cell count by microscopy (number/high power field) 2023-11-08 20:59:00* Test Item Value Reference Range Interpretation Comme nts Urine Epithelial Cells (test code = 5787-7) Rare Few TELUrine sediment crystal count by microscopy (number/high power field) 2023-11-08 20:59:00* Test Item Value Reference Range Interpretation Comme nts Urine Crystals (test code = 99822-1) None Seen None * TELUrine sediment bacteria count by microscopy (number/high power field) 2023-11-08 20:59:00* Test Item Value Reference Range Interpretation Comme nts Urine Bacteria (test code = 5769-5) Packed None TELUrine sediment casts count by microscopy (number/low power field)2023-11-08 20:59:00* Test Item Value Reference Range Interpretation Comme nts Urine Casts (test code = 9842-6) Present None * TELUrine sediment hyaline cast count by microscopy (number/low power field) 2023-11-08 20:59:00* Test Item Value Reference Range Interpretation Comme nts Urine Hyaline Casts (test co de = 5796-8) 0-1 0-1 TELYeast detection in urine sediment by light qddemjtswr7908-25-39 20:59:00* Test Item Value Reference Range Interpretation Comme nts Urine Yeast (test code = 47791-6) None Seen None TELService comment [id number] 20:59:00* Test Item Value Reference Range Interpretation Comme nts Urinalysis Comment (test code = 8262-8) * See_Comment [Automated [employer]a ge] The system which generated this result transmitted reference range: *. The reference range was not used to interpret this result as normal/abnormal. TELService comment 20:59:00* Test Item Value Reference Range Interpretation Comme nts Urine Culture Indicated (marjan t code = 8264-4) To follow TELHCG ur syvorlreq3871-68-81 20:59:00* Test Item Value Reference Range Interpretation Comme nts Urine Test (test c ode = 2106-3) Positive Negative TELAutomated blood hematocrit (volume fraction)2023-11-08 18:35:00* Test Item Value Reference Range Interpretation Comme nts Hematocrit (test code = 4544-3) 35.8 34.0-45.5 TELAutomated blood lymphocyte count as percentage of total owhayzcfsm3228-69-76 18:35:00* Test Item Value Reference Range Interpretation Comme nts Lymphocytes (%) (Auto) (test code = 736-9) 22 25-44 TELAutomated blood monocyte count as percentage of total qsixznrhxa3487-18-62 18:35:00* Test Item Value Reference Range Interpretation Comme nts Monocytes (%) (Auto) (test c ode = 5905-5) 7 3-10 TELAutomated blood eosinophil count as percentage of total netijexqhi8028-09-92 18:35:00* Test Item Value Reference Range Interpretation Comme nts Eosinophils (%) (Auto) (test code = 713-8) 1 0-7 TELAutomated blood basophil count as percentage of total qaicvqaerh7056-21-21 18:35:00* Test Item Value Reference Range Interpretation Comme nts Basophils (%) (Auto) (test c ode = 706-2) 0 0-1 TELAutomated blood nucleated erythrocyte count as percentage of total leukocytes 2023-11-08 18:35:00* Test Item Value Reference Range Interpretation Comme nts Nucleated Red Blood Cells % (test code = 74958-9) 0.0 0-0.2 TELAutomated blood neutrophil count (number/volume)2023-11-08 18:35:00* Test Item Value Reference Range Interpretation Comme nts Neutrophils # (Auto) (test c ode = 751-8) 8.6 1.3-6.7 TELAutomated blood immature granulocyte count as percentage of total leukocytes 2023-11-08 18:35:00* Test Item Value Reference Range Interpretation Comme nts Immature Granulocyte # (Auto ) (test code = 40148-5) 0.1 0.0-0.0 TELAutomated blood lymphocyte count (number/volume)2023-11-08 18:35:00* Test Item Value Reference Range Interpretation Comme nts Lymphocytes # (Auto) (test c ode = 731-0) 2.7 1.4-4.1 TELBlood monocytes automated count (number/volume)2023-11-08 18:35:00* Test Item Value Reference Range Interpretation Comme nts Monocytes # (Auto) (test code = 742-7) 0.8 0-1.3 TELAutomated blood eosinophil [id number] 18:35:00* Test Item Value Reference Range Interpretation Comme nts Eosinophils # (Auto) (test c ode = 711-2) 0.1 0-0.8 TELAutomated erythrocyte mean corpuscular volume (MCV) nmdgpeyulbu8065-44-78 18:35:00* Test Item Value Reference Range Interpretation Comme nts Mean Corpuscular Volume (marjan t code = 787-2) 85 80-94 TELAutomated blood basophil count (number/volume)2023-11-08 18:35:00* Test Item Value Reference Range Interpretation Comme nts Basophils # (Auto) (test code = 704-7) 0.0 0-0.1 TELAutomated blood nucleated erythrocyte count (count/volume)2023-11-08 18:35:00 * Test Item Value Reference Range Interpretation Comme nts Nucleated Red Blood Cells # (test code = 771-6) 0.00 0-0.01 TELService comment [id number] 18:35:00* Test Item Value Reference Range Interpretation Comme nts Manual Differential (test co de = 8265-1) Not Ind TELProthrombin iolv3588-70-01 18:35:00* Test Item Value Reference Range Interpretation Comme nts Prothrombin Time (test code = 5902-2) 12.6 9.4-12.5 TELINR [id number] 18:35:00* Test Item Value Reference Range Interpretation Comme nts Prothromb Time International Ratio (test code = 6301-6) 1.1 0.8-1.2 TELaPTT IVE8282-83-82 18:35:00* Test Item Value Reference Range Interpretation Comme nts Activated Partial Thrombopla st Time (test code = 71856-8) 32.6 25.1-36.5 TELAutomated erythrocyte mean corpuscular hemoglobin (mass per erythrocyte) 2023-11-08 18:35:00* Test Item Value Reference Range Interpretation Comme nts Mean Corpuscular Hemoglobin (test code = 785-6) 28.2 27.0-33.0 TELAutomated erythrocyte mean corpuscular hemoglobin concentration measurement (mass/[id number] 18:35:00* Test Item Value Reference Range Interpretation Comme nts Mean Corpuscular Hemoglobin Concent (test code = 786-4) 33.2 33.0-37.0 TELAutomated erythrocyte distribution width [id number] 18:35:00* Test Item Value Reference Range Interpretation Comme nts Red Cell Distribution Width (test code = 788-0) 13.0 10.7-14.5 TELSodium CuzEl-vGby2027-25-11 18:35:00* Test Item Value Reference Range Interpretation Comme nts Sodium Level (test code = 2951-2) 137 136-145 TELSerum or plasma potassium measurement (moles/volume)2023-11-08 18:35:00* Test Item Value Reference Range Interpretation Comme nts Potassium Level (test code = 2823-3) 3.8 3.5-5.1 TELSerum or plasma chloride measurement (moles/volume)2023-11-08 18:35:00* Test Item Value Reference Range Interpretation Comme nts Chloride Level (test code = 2075-0) 105 98-107 TELSerum or plasma total carbon dioxide measurement (moles/volume)2023-11-08 18:35:00* Test Item Value Reference Range Interpretation Comme nts Carbon Dioxide Level (test c ode = 2027-) 24 22-29 TELSerum or plasma anion gap determination (moles/volume)2023-11-08 18:35:00* Test Item Value Reference Range Interpretation Comme nts Anion Gap (test code = 97901-1) 12 8-18 TELSerum or plasma urea nitrogen measurement (mass/volume)2023-11-08 18:35:00* Test Item Value Reference Range Interpretation Comme nts Blood Urea Nitrogen (test co de = 3094-0) 8 7-19 TELSerum or plasma creatinine measurement (mass/volume)2023-11-08 18:35:00* Test Item Value Reference Range Interpretation Comme nts Creatinine (test code = 2160-0) 0.7 0.6-1.1 TELGFR/BSA.pred SerPl LZKU-[id number] 18:35:00* Test Item Value Reference Range Interpretation Comme nts Estimat Glomerular Filtratio n Rate (test code = 49844-2) 111 90-142 TELSerum or plasma glucose measurement (mass/volume)2023-11-08 18:35:00* Test Item Value Reference Range Interpretation Comme nts Glucose Level (test code = 2345-7) 76 60-100 TELAutomated blood platelet count (count/volume)2023-11-08 18:35:00* Test Item Value Reference Range Interpretation Comme nts Platelet Count (test code = 777-3) 411 150-450 TELSerum or plasma calcium measurement (mass/volume)2023-11-08 18:35:00* Test Item Value Reference Range Interpretation Comme nts Calcium Level (test code = 36044-1) 9.0 8.4-10.2 TELSerum or plasma total bilirubin measurement (mass/volume)2023-11-08 18:35:00 * Test Item Value Reference Range Interpretation Comme nts Total Bilirubin (test code = 1975-2) 0.2 0.2-1.2 TELSerum or plasma aspartate aminotransferase measurement (enzymatic activity/volume)2023-11-08 18:35:00* Test Item Value Reference Range Interpretation Comme nts Aspartate Amino Transf (AST/ SGOT) (test code = 1920-8) 15 5-34 TELSerum or plasma alanine aminotransferase measurement (enzymatic activity/volume)2023-11-08 18:35:00* Test Item Value Reference Range Interpretation Comme nts Alanine Aminotransferase (AL T/SGPT) (test code = 1742-6) 28 0-55 TELSerum or plasma protein measurement (mass/volume)2023-11-08 18:35:00* Test Item Value Reference Range Interpretation Comme nts Total Protein (test code = 2885-2) 7.8 6.4-8.3 TELSerum or plasma albumin measurement (mass/volume)2023-11-08 18:35:00* Test Item Value Reference Range Interpretation Comme nts Albumin (test code = 1751-7) 4.2 3.5-5.0 TELSerum or plasma alkaline phosphatase measurement (enzymatic activity/volume) 2023-11-08 18:35:00* Test Item Value Reference Range Interpretation Comme nts Alkaline Phosphatase (test c ode = 6768-6) 75 40-150 TELAutomated blood platelet mean volume kvobyzcgfcw1329-49-52 18:35:00* Test Item Value Reference Range Interpretation Comme nts Mean Platelet Volume (test c ode = 22894-8) 10.3 5.7-10.7 TELAutomated blood neutrophil count as percentage of total qsoqqvkcuu3404-66-79 18:35:00* Test Item Value Reference Range Interpretation Comme nts Neutrophils (%) (Auto) (test code = 770-8) 70 47-75 TELAutomated blood immature granulocyte count as percentage of total leukocytes 2023-11-08 18:35:00* Test Item Value Reference Range Interpretation Comme nts Immature Granulocyte % (Auto ) (test code = 95125-6) 0 0-0 TELAutomated blood lymphocyte count as percentage of total myvjsykxqh9162-00-47 18:35:00* Test Item Value Reference Range Interpretation Comme nts Lymphocytes (%) (Auto) (test code = 736-9) 22 25-44 TELAutomated blood monocyte count as percentage of total xlngbicusf3381-51-16 18:35:00* Test Item Value Reference Range Interpretation Comme nts Monocytes (%) (Auto) (test c ode = 5905-5) 7 3-10 TELAutomated blood eosinophil count as percentage of total nzcokcmxnw1571-52-73 18:35:00* Test Item Value Reference Range Interpretation Comme nts Eosinophils (%) (Auto) (test code = 713-8) 1 0-7 TELAutomated blood basophil count as percentage of total bsckqiqisl5853-63-03 18:35:00* Test Item Value Reference Range Interpretation Comme nts Basophils (%) (Auto) (test c ode = 706-2) 0 0-1 TELAutomated blood nucleated erythrocyte count as percentage of total leukocytes 2023-11-08 18:35:00* Test Item Value Reference Range Interpretation Comme nts Nucleated Red Blood Cells % (test code = 30521-3) 0.0 0-0.2 TELAutomated blood neutrophil count (number/volume)2023-11-08 18:35:00* Test Item Value Reference Range Interpretation Comme nts Neutrophils # (Auto) (test c ode = 751-8) 8.6 1.3-6.7 TELAutomated blood lymphocyte count (number/volume)2023-11-08 18:35:00* Test Item Value Reference Range Interpretation Comme nts Lymphocytes # (Auto) (test c ode = 731-0) 2.7 1.4-4.1 TELBlood monocytes automated count (number/volume)2023-11-08 18:35:00* Test Item Value Reference Range Interpretation Comme nts Monocytes # (Auto) (test code = 742-7) 0.8 0-1.3 TELAutomated blood eosinophil [id number] 18:35:00* Test Item Value Reference Range Interpretation Comme nts Eosinophils # (Auto) (test c ode = 711-2) 0.1 0-0.8 TELAutomated blood basophil count (number/volume)2023-11-08 18:35:00* Test Item Value Reference Range Interpretation Comme nts Basophils # (Auto) (test code = 704-7) 0.0 0-0.1 TELAutomated blood nucleated erythrocyte count (count/volume)2023-11-08 18:35:00 * Test Item Value Reference Range Interpretation Comme nts Nucleated Red Blood Cells # (test code = 771-6) 0.00 0-0.01 TELService comment [id number] 18:35:00* Test Item Value Reference Range Interpretation Comme nts Manual Differential (test co de = 8265-1) Not Ind TELProthrombin pcbl6023-93-38 18:35:00* Test Item Value Reference Range Interpretation Comme nts Prothrombin Time (test code = 5902-2) 12.6 9.4-12.5 TELINR [id number] 18:35:00* Test Item Value Reference Range Interpretation Comme nts Prothromb Time International Ratio (test code = 6301-6) 1.1 0.8-1.2 TELaPTT [id number] 18:35:00* Test Item Value Reference Range Interpretation Comme nts Activated Partial Thrombopla st Time (test code = 52932-9) 32.6 25.1-36.5 TELSodium VptUu-mPaf9785-54-11 18:35:00* Test Item Value Reference Range Interpretation Comme nts Sodium Level (test code = 2951-2) 137 136-145 TELSerum or plasma potassium measurement (moles/volume)2023-11-08 18:35:00* Test Item Value Reference Range Interpretation Comme nts Potassium Level (test code = 2823-3) 3.8 3.5-5.1 TELSerum or plasma chloride measurement (moles/volume)2023-11-08 18:35:00* Test Item Value Reference Range Interpretation Comme nts Chloride Level (test code = 2075-0) 105 98-107 TELSerum or plasma total carbon dioxide measurement (moles/volume)2023-11-08 18:35:00* Test Item Value Reference Range Interpretation Comme nts Carbon Dioxide Level (test c ode = 8-9) 24 22-29 TELSerum or plasma anion gap determination (moles/volume)2023-11-08 18:35:00* Test Item Value Reference Range Interpretation Comme nts Anion Gap (test code = 53261-9) 12 8-18 TELSerum or plasma urea nitrogen measurement (mass/volume)2023-11-08 18:35:00* Test Item Value Reference Range Interpretation Comme nts Blood Urea Nitrogen (test co de = 3094-0) 8 7-19 TELSerum or plasma creatinine measurement (mass/volume)2023-11-08 18:35:00* Test Item Value Reference Range Interpretation Comme nts Creatinine (test code = 2160-0) 0.7 0.6-1.1 TELGFR/BSA.pred SerPl TXLW-UyNMmt4254-57-11 18:35:00* Test Item Value Reference Range Interpretation Comme nts Estimat Glomerular Filtratio n Rate (test code = 40967-9) 111 90-142 TELSerum or plasma glucose measurement (mass/volume)2023-11-08 18:35:00* Test Item Value Reference Range Interpretation Comme nts Glucose Level (test code = 2345-7) 76 60-100 TELSerum or plasma calcium measurement (mass/volume)2023-11-08 18:35:00* Test Item Value Reference Range Interpretation Comme nts Calcium Level (test code = 41485-1) 9.0 8.4-10.2 TELSerum or plasma total bilirubin measurement (mass/volume)2023-11-08 18:35:00 * Test Item Value Reference Range Interpretation Comme nts Total Bilirubin (test code = 1975-2) 0.2 0.2-1.2 TELAutomated blood leukocyte count (number/volume)2023-11-08 18:35:00* Test Item Value Reference Range Interpretation Comme nts White Blood Count (test code = 6690-2) 12.3 4.5-11.5 TELSerum or plasma aspartate aminotransferase measurement (enzymatic activity/volume)2023-11-08 18:35:00* Test Item Value Reference Range Interpretation Comme nts Aspartate Amino Transf (AST/ SGOT) (test code = 1920-8) 15 5-34 TELSerum or plasma alanine aminotransferase measurement (enzymatic activity/volume)2023-11-08 18:35:00* Test Item Value Reference Range Interpretation Comme nts Alanine Aminotransferase (AL T/SGPT) (test code = 1742-6) 28 0-55 TELSerum or plasma protein measurement (mass/volume)2023-11-08 18:35:00* Test Item Value Reference Range Interpretation Comme nts Total Protein (test code = 2885-2) 7.8 6.4-8.3 TELSerum or plasma albumin measurement (mass/volume)2023-11-08 18:35:00* Test Item Value Reference Range Interpretation Comme nts Albumin (test code = 1751-7) 4.2 3.5-5.0 TELSerum or plasma alkaline phosphatase measurement (enzymatic activity/volume) 2023-11-08 18:35:00* Test Item Value Reference Range Interpretation Comme nts Alkaline Phosphatase (test c ode = 6768-6) 75 40-150 TELBlood erythrocytes automated count (number/volume)2023-11-08 18:35:00* Test Item Value Reference Range Interpretation Comme nts Red Blood Count (test code = 789-8) 4.22 3.8-5.1 TELAutomated blood leukocyte count (number/volume)2023-11-08 18:35:00* Test Item Value Reference Range Interpretation Comme nts White Blood Count (test code = 6690-2) 12.3 4.5-11.5 TELBlood erythrocytes automated count (number/volume)2023-11-08 18:35:00* Test Item Value Reference Range Interpretation Comme nts Red Blood Count (test code = 789-8) 4.22 3.8-5.1 TELBlood hemoglobin measurement (mass/volume)2023-11-08 18:35:00* Test Item Value Reference Range Interpretation Comme nts Hemoglobin (test code = 718-7) 11.9 12.0-15.2 TELBlood hemoglobin measurement (mass/volume)2023-11-08 18:35:00* Test Item Value Reference Range Interpretation Comme nts Hemoglobin (test code = 718-7) 11.9 12.0-15.2 TELAutomated blood hematocrit (volume fraction)2023-11-08 18:35:00* Test Item Value Reference Range Interpretation Comme nts Hematocrit (test code = 4544-3) 35.8 34.0-45.5 TELAutomated erythrocyte mean corpuscular volume (MCV) uissatxbcme8572-01-27 18:35:00* Test Item Value Reference Range Interpretation Comme nts Mean Corpuscular Volume (marjan t code = 787-2) 85 80-94 TELAutomated erythrocyte mean corpuscular hemoglobin (mass per erythrocyte) 2023-11-08 18:35:00* Test Item Value Reference Range Interpretation Comme nts Mean Corpuscular Hemoglobin (test code = 785-6) 28.2 27.0-33.0 TELAutomated erythrocyte mean corpuscular hemoglobin concentration measurement (mass/[id number] 18:35:00* Test Item Value Reference Range Interpretation Comme nts Mean Corpuscular Hemoglobin Concent (test code = 786-4) 33.2 33.0-37.0 TELAutomated erythrocyte distribution width [id number] 18:35:00* Test Item Value Reference Range Interpretation Comme [facility] Red Cell Distribution Width (test code = 788-0) 13.0 10.7-14.5 TELAutomated blood platelet count (count/volume)2023-11-08 18:35:00* Test Item Value Reference Range Interpretation Comme [facility] Platelet Count (test code = 777-3) 411 150-450 TELAutomated blood platelet mean volume uovruvdpxpx0345-97-78 18:35:00* Test Item Value Reference Range Interpretation Comme nts Mean Platelet Volume (test c ode = 29072-7) 10.3 5.7-10.7 TELAutomated blood neutrophil count as percentage of total tfbiqxhpki0939-03-16 18:35:00* Test Item Value Reference Range Interpretation Comme nts Neutrophils (%) (Auto) (test code = 770-8) 70 47-75 TELPOCT [id number] 18:52:00* Test Item Value Reference Range Interpretation Comme nts POCT PREG (test code = 1605) Negative On board controls acceptable with C Line (test code = 3574) Yes POCT PREG LOT # (test code = 3575) POCT PREG TEST DATE ( test code = 3576) [facility] [id number] 18:52:00* Test Item Value Reference Range Interpretation Comme nts POCT PREG (test code = 1605) Negative On board controls acceptable with C Line (test code = 3574) Yes POCT PREG LOT # (test code = 3575) POCT PREG TEST DATE ( test code = 3576) [facility] [id number] 14:14:00* Test Item Value Reference Range Interpretation Comme nts POCT PREG (test code = 1605) Negative On board controls acceptable with C Line (test code = 3574) Yes POCT PREG LOT # (test code = 3575) POCT PREG TEST DATE ( test code = 3576) [facility] [id number] 14:14:00* Test Item Value Reference Range Interpretation Comme nts POCT PREG (test code = 1605) Negative On board controls acceptable with C Line (test code = 3574) Yes POCT PREG LOT # (test code = 3575) POCT PREG TEST DATE ( test code = 3576) [facility] BHCG (QUANTITATIVE)2022-09-25 19:10:09* Test Item Value Reference Range Interpretation Comme nts BETA HCG (test code = 4025834970) See_Comment [Automated messa ge] The system which generated this result transmitted reference range: Non- female and male patients: <5 mIU/mL. The reference range was not used to interpret this result as normal/abnormal. BASSEM (test code = BASSEM) Gestational Age ?Range (mIU/mL) 1-10 ?Weeks ?[id number] Weeks ?13081-97861465-39 Weeks ?8840-18066093-89 Weeks ?7439-987090 Biotin has been reported to cause a negative bias, interpret results relative to patient's use of biotin. [facility] METABOLIC PANEL (72115)2022-09-25 18:47:40* Test Item Value Reference Range Interpretation Comme nts NA (test code = 7109340037) 137 mmol/L 135-145 K (test code = 7662661944) 4.5 mmol/L 3.5-5.0 CL (test code = 0426149095) 106 mmol/L 98-108 CO2 TOTAL (test code = 7352177649) 22 mmol/L 23-31 L AGAP (test code = 3587992806) 2-16 BUN (test code = 0533662308) 11 mg/dL 7-23 GLUCOSE (test code = 8340584449) 91 mg/dL 70-110 CREATININE (test code = 5986311900) 0.58 mg/dL 0.50-1.04 TOTAL BILI (test code = 1156838678) 0.4 mg/dL 0.1-1.1 CALCIUM (test code = 0406520289) 8.9 mg/dL 8.6-10.6 T PROTEIN (test code = 7060165733) 7.4 g/dL 6.3-8.2 ALBUMIN (test code = 3044795244) 4.3 g/dL 3.5-5.0 ALK PHOS (test code = 5657308714) 79 U/L 34-122 ALTv (test code = 1742-6) 17 U/L 5-35 AST(SGOT) (test code = 8502830760) 27 U/L 13-40 eGFR (test code = 1119172054) mL/min/1.73m2 BASSEM (test code = BASSEM) Association of Glomerular Filtration Rate (GFR) and Staging of Kidney Disease* + --+ --+ ------+| GFR (mL/min/1.73 m2) ?| With Kidney Damage ?| ?Without Kidney Damage+ --------+ --------+ +| ?>90 ?| ?Stage one ?| ? Normal ?+ ---+ ---+ -------+| ?60-89 ?| ?Stage two ?| ? Decreased GFR ? + --+ --+ ------+| ?30-59 ?| ?Stage three ?| ? Stage three ? + --+ --+ ------+| ?15-29 ?| ?Stage four ? | ? Stage four ?+ ---+ ---+ -------+| ?<15 (or dialysis) ? ?| ?Stage five ? | ? Stage five ?+ ---+ ---+ -------+ *Each stage assumes the associated GFR level has been in effect for at least three months. ?Stages 1 to 5, with or without kidney disease, indicate chronic kidney disease. Notes: Determination of stages one and two (with eGFR >59mL/min/1.73 m2) requires estimation of kidney damage for at least three months as defined by structural or functional abnormalities of the kidney, manifested by either:Pathological abnormalities or Markers of kidney damage (including abnormalities in the composition of the blood or urine or abnormalities in imaging tests). Lab Interpretation (test code = 19313-2) [facility] THRMPLAS [id number] 18:43:19* Test Item Value Reference Range Interpretation Comme [facility] APTT Patient (test code = 3173-2) See_Comment [Automated message] The system which generated this result transmitted reference range: 23 - 38 Seconds. The reference range was not used to interpret this result as normal/abnormal. BASSEM (test code = BASSEM) The [facility] patient population mean normal value for aPTT is 30 seconds. Lab Interpretation (test code = 30746-9) Normal [facility] IrvingPROTHROMBIN TIME / [id number] 18:41:18* Test Item Value Reference Range Interpretation Comme [facility] PROTIME PATIENT (test code = 5964-2) See_Comment [Automated [employer]] The system which generated this result transmitted reference range: 12.0 - 14.7 Seconds. The reference range was not used to interpret this result as normal/abnormal. INR (test code = 6301-6) Normal INR <1.1; Warfarin Therapeutic range 2.0 to 3.0 or 2.5 to 3.5, depending upon the indications. Lab Interpretation (test code = 59487-7) [facility] WITH [id number] 18:33:59* Test Item Value Reference Range Interpretation Comme [facility] WBC (test code = 6690-2) See_Comment [Automated [employer]] The system which generated this result transmitted reference range: 4.30 - 11.10 10*3/?L. The reference range was not used to interpret this result as normal/abnormal. RBC (test code = 789-8) See_Comment [Automated [employer]] The system which generated this result transmitted reference range: 3.93 - 5.25 10*6/?L. The reference range was not used to interpret this result as normal/abnormal. HGB (test code = 718-7) 11.7 g/dL 11.6-15.0 HCT (test code = 4544-3) 35.1 % 35.7-45.2 L MCV (test code = 787-2) 84.8 fL 80.6-95.5 MCH (test code = 785-6) 28.3 pg 25.9-32.8 MCHC (test code = 786-4) 33.3 g/dL 31.6-35.1 RDW-SD (test code = 76719-0) 40.8 fL 39.0-49.9 RDW-CV (test code = 788-0) 13.2 % 12.0-15.5 PLT (test code = 777-3) See_Comment [Automated messa ge] The system which generated this result transmitted reference range: 166 - 358 10*3/?L. The reference range was not used to interpret this result as normal/abnormal. MPV (test code = 70570-7) 10.9 fL 9.5-12.9 NRBC/100 WBC (test code = 8177267193) See_Comment [Automated [employer]] The system which generated this result transmitted reference range: 0.0 - 10.0 /100 WBCs. The reference range was not used to interpret this result as normal/abnormal. NRBC x10^3 (test code = 8542095481) See_Comment [Automated messa ge] The system which generated this result transmitted reference range: 10*3/?L. The reference range was not used to interpret this result as normal/abnormal. GRAN MAT (NEUT) % (test code = 770-8) 67.3 % IMM GRAN % (test code = 8284266845) 0.30 % LYMPH % (test code = 736-9) 24.0 % MONO % (test code = 5905-5) 7.4 % EOS % (test code = 713-8) 0.7 % BASO % (test code = 706-2) 0.3 % GRAN MAT x10^3(ANC) (test code = 6307947110) 6.52 10*3/uL 1.88-7.09 IMM GRAN x10^3 (test code = 9417845135) 0.03 10*3/uL 0.00-0.06 LYMPH x10^3 (test code = 731-0) 2.33 10*3/uL 1.32-3.29 MONO x10^3 (test code = 742-7) 0.72 10*3/uL 0.33-0.92 EOS x10^3 (test code = 711-2) 0.07 10*3/uL 0.03-0.39 BASO x10^3 (test code = 704-7) 0.03 10*3/uL 0.01-0.07 Lab Interpretation (test code = 16273-5) Abnormal [facility] [id number] 18:26:00* Test Item Value Reference Range Interpretation Comme nts POCT PREG (test code = 1605) positive On board controls acceptable with C Line (test code = 3574) present POCT PREG LOT # (test code = 3575) [id number] POCT PREG TEST DATE ( test code = 3576) 11/28/2023 Lab Interpretation (test cod e = 68914-5) Normal [facility] [id number] 17:31:00* Test Item Value Reference Range Interpretation Comme nts POCT PREG (test code = 1605) Positive faint On board controls acceptable with C Line (test code = 3574) Yes POCT PREG LOT # (test code = 3575) POCT PREG TEST DATE ( test code = 3576) [facility] [id number] 17:31:00* Test Item Value Reference Range Interpretation Comme nts POCT PREG (test code = 1605) Positive faint On board controls acceptable with C Line (test code = 3574) Yes POCT PREG LOT # (test code = 3575) POCT PREG TEST DATE ( test code = 3576) [facility] URINALYSIS W SPECIFIC [id number] 19:05:00* Test Item Value Reference Range Interpretation Comme nts POCT U SP GRAV (test code = 3255) 1.020 mg/dl 1.005-1.025 POCT PH U (test code = 3254) 5 mg/dl 5-8 POCT U LEUK EST (test code = 3263) neg Negative - Negative POCT U NIT (test code = 3262) neg Negative - Negati ve POCT U PROT (test code = 3259) neg Negative - Negative POCT U GLU (test code = 3256) neg Negative - Negati ve POCT U KETONE (test code = 3258) neg Negative - Negative POCT U UROBILI (test code = 3260) neg 0.2-1 POCT U BILI (test code = 3261) neg Negative - Negative POCT U BLD (test code = 3257) neg Negative - Negati ve POCT U COLOR (test code = 3266) yellow POCT U APPEAR (test code = 3267) clear Lab Interpretation (test cod e = 56237-4) Normal [facility] [id number] 19:04:00* Test Item Value Reference Range Interpretation Comme nts POCT PREG (test code = 1605) Negative On board controls acceptable with C Line (test code = 3574) Yes POCT PREG LOT # (test code = 3575) POCT PREG TEST DATE ( test code = 3576) Lab Interpretation (test cod e = 86328-4) Normal [facility] [id number] 19:43:00* Test Item Value Reference Range Interpretation Comme nts POCT PREG (test code = 1605) Negative On board controls acceptable with C Line (test code = 3574) Yes POCT PREG LOT # (test code = 3575) POCT PREG TEST DATE ( test code = 3576) [facility] URINALYSIS W/O SPECIFIC [id number] 16:42:00* Test Item Value Reference Range Interpretation Comme nts POCT PH U (test code = 3254) 7 mg/dl 5-8 POCT U LEUK EST (test code = 3263) Negative Negative - Negative POCT U NIT (test code = 3262) Negative Negative - Negati ve POCT U PROT (test code = 3259) Negative Negative - Negat aixa POCT U GLU (test code = 3256) Normal Negative - Negati ve POCT U KETONE (test code = 3258) Negative Negative - Neg ative POCT U BLD (test code = 3257) Negative Negative - Negati ve [facility] URINALYSIS W/O SPECIFIC [id number] 19:22:00* Test Item Value Reference Range Interpretation Comme nts POCT PH U (test code = 3254) n/a 5-8 POCT U LEUK EST (test code = 3263) n/a Negative - N egative POCT U NIT (test code = 3262) n/a Negative - Negati ve POCT U PROT (test code = 3259) neg Negative - Negat aixa POCT U GLU (test code = 3256) neg Negative - Negati ve POCT U KETONE (test code = 3258) n/a Negative - Neg ative POCT U BLD (test code = 3257) n/a Negative - Negati ve Lab Interpretation (test cod e = 56473-2) Normal [facility] URINALYSIS W/O SPECIFIC [id number] 20:56:00* Test Item Value Reference Range Interpretation Comme nts POCT PH U (test code = 3254) n/a 5-8 POCT U LEUK EST (test code = 3263) n/a Negative - Negative POCT U NIT (test code = 3262) n/a Negative - Negati ve POCT U PROT (test code = 3259) negative Negative - Negat aixa POCT U GLU (test code = 3256) negative Negative - Negati ve POCT U KETONE (test code = 3258) n/a Negative - Neg ative POCT U BLD (test code = 3257) n/a Negative - Negati ve [facility] URINALYSIS W/O SPECIFIC [id number] 17:48:00* Test Item Value Reference Range Interpretation Comme nts POCT PH U (test code = 3254) na 5-8 POCT U LEUK EST (test code = 3263) na Negative - N egative POCT U NIT (test code = 3262) na Negative - Negati ve POCT U PROT (test code = 3259) neg Negative - Negat aixa POCT U GLU (test code = 3256) neg Negative - Negati ve POCT U KETONE (test code = 3258) na Negative - Neg ative POCT U BLD (test code = 3257) na Negative - Negati ve [facility] GLUCOSE (AUTOMATED)2021-05-22 18:26:22* Test Item Value Reference Range Interpretation Comme nts POCT GLU (test code = 1036473757) 124 mg/dL 70-110 H Lab Interpretation (test cod e = 37768-2) Abnormal [facility] [id number] 17:34:00* Test Item Value Reference Range Interpretation Comme nts POCT PREG (test code = 1605) Positive On board controls acceptable with C Line (test code = 3574) Yes POCT PREG LOT # (test code = 3575) POCT PREG TEST DATE ( test code = 3576) [facility] URINALYSIS W/O SPECIFIC [id number] 17:34:00* Test Item Value Reference Range Interpretation Comme nts POCT PH U (test code = 3254) 5 mg/dl 5-8 POCT U LEUK EST (test code = 3263) negative Negative - Negative POCT U NIT (test code = 3262) negative Negative - Negati ve POCT U PROT (test code = 3259) trace Negative - Negat aixa POCT U GLU (test code = 3256) negative Negative - Negati ve POCT U KETONE (test code = 3258) trace Negative - Neg ative POCT U BLD (test code = 3257) negative Negative - Negati ve [facility] [id number] 17:34:00* Test Item Value Reference Range Interpretation Comme nts POCT PREG (test code = 1605) Positive On board controls acceptable with C Line (test code = 3574) Yes POCT PREG LOT # (test code = 3575) POCT PREG TEST DATE ( test code = 3576) [facility] URINALYSIS W/O SPECIFIC [id number] 17:34:00* Test Item Value Reference Range Interpretation Comme nts POCT PH U (test code = 3254) 5 mg/dl 5-8 POCT U LEUK EST (test code = 3263) negative Negative - Negative POCT U NIT (test code = 3262) negative Negative - Negati ve POCT U PROT (test code = 3259) trace Negative - Negat aixa POCT U GLU (test code = 3256) negative Negative - Negati ve POCT U KETONE (test code = 3258) trace Negative - Neg ative POCT U BLD (test code = 3257) negative Negative - [facility]ati ve [facility] [id number] 17:17:00* Test Item Value Reference Range Interpretation Comme nts POCT U SP GRAV (test code = 3255) 1.030 mg/dl 1.005-1.025 A POCT PH U (test code = 3254) 5 mg/dl 5-8 POCT U LEUK EST (test code = 3263) + Negative - Negative POCT U NIT (test code = 3262) neg Negative - Negati ve POCT U PROT (test code = 3259) neg Negative - Negative POCT U GLU (test code = 3256) neg Negative - Negati ve POCT U KETONE (test code = 3258) neg Negative - Negative POCT U UROBILI (test code = 3260) neg 0.2-1 POCT U BILI (test code = 3261) ++ Negative - Negative POCT U BLD (test code = 3257) neg Negative - Negati ve POCT U COLOR (test code = 3266) dark POCT U APPEAR (test code = 3267) cloudy BASSEM (test code = BASSEM) Lab Interpretation (test cod e = 89479-0) [facility]normal [facility] [id number] 00:00:00 * Test Item Value Reference Range Interpretation Comme nts HEMOGLOBIN A1 (test code = 2575) 97.3 % HEMOGLOBIN A2 (test code = 2576) 2.7 % HEMOGLOBIN F () (test c ode = 2722) 0.0 % HEMOGLOBIN S (test code = 2724) NONE % HEMOGLOBIN C (test code = 2726) NONE % OTHER HEMOGLOBIN VARIANT (te st code = 10411) NONE DETEC % PATHOLOGIST'S INTERPRETATION (test code = 2577) (NOTE) VARICELLA ZOSTER [id number] 00:00:00* Test Item Value Reference Range Interpretation Comme nts VARICELLA ZOSTER IgG (test c ode = 37747) 46 INDEX GC AND CHLAMYDIA, AMPLIFIED, [id number] 00:00:00* Test Item Value Reference Range Interpretation Comme nts GONORRHEA, NAAT (test code = 70249) NEGATIVE CHLAMYDIA, NAAT (test code = 99014) NEGATIVE MATERNAL AFP FOR NTD [id number] 00:00:00* Test Item Value Reference Range Interpretation Comme nts INTERPRETATION (test code = 545568) SCREEN NEGATIVE Neural tube defect risk (marjan t code = 22107) 1:94463 Neural tube defect interpretation (test code = 95793) (NOTE) DATE OF (test code = 2660) 2000 MATERNAL WEIGHT (test code = 2657) 183 LBS INITIAL/REPEAT (test code = 060128) INITIAL FAMILY HISTORY OF NTD (test code = 659778) NOT GIVEN INSULIN DEP. DIABETIC (test code = 2659) NOT GIVEN RACE (test code = 2658) SMOKER? (test code = 454237) NO NUMBER OF GESTATIONS (test code = 30189) 1 GESTATIONAL AGE (test code = 2656) 17.4 WEEKS DETERMINED BY: (test code = 2654) LMP DATE OF LMP (test code = 2652) 12/03/2020 ADJUST AFP M.O.M. (test code = 2661) 0.315 M.O.M. AFP (test code = 60871) 12.3 NG/ML CULTURE, [id number] 00:00:00* Test Item Value Reference Range Interpretation Comme nts CULTURE, URINE (test code = 39161) SPECIMEN NUMBER: [id number] DRUG ABUSE PANEL 10 WITH [id number] 00:00:00* Test Item Value Reference Range Interpretation Comme nts AMPHETAMINES (test code = 3201) NEGATIVE BARBITURATES (test code = 3202) NEGATIVE BENZODIAZEPINES (test code = 3203) NEGATIVE CANNABINOIDS (test code = 3204) NEGATIVE COCAINE METABOLITE (test cod e = 3205) NEGATIVE OPIATES (test code = 3209) NEGATIVE OXYCODONE (test code = 14348) NEGATIVE PHENCYCLIDINE (test code = 3210) NEGATIVE METHADONE (test code = 3207) NEGATIVE BUPRENORPHINE (test code = 58590) NEGATIVE OBSTETRIC PANEL + [id number] 00:00:00* Test Item Value Reference Range Interpretation Comme nts WBC (test code = 1001) 8.2 K/UL RBC (test code = 1002) 4.54 M/UL HEMOGLOBIN (test code = 1003) 12.8 G/DL HEMATOCRIT (test code = 1004) 38.4 % MCV (test code = 1005) 84.6 fL MCH (test code = 1006) 28.2 PG MCHC (test code = 1007) 33.3 G/DL RDW (test code = 1038) 13.2 % NEUTROPHILS (test code = 1008) 73.1 % LYMPHOCYTES (test code = 1010) 19.1 % MONOCYTES (test code = 1011) 6.4 % EOSINOPHILS (test code = 1012) 0.7 % BASOPHILS (test code = 1013) 0.2 % IMMATURE GRANULOCYTES (test code = 1036) 0.5 % NUCLEATED RBCS (test code = 1065) 0.0 /100WBC'S PLATELET COUNT (test code = 1015) 279 K/UL ABSOLUTE NEUTROPHILS (test code = 1066) 6.01 K/UL ABSOLUTE LYMPHOCYTES (test code = 1067) 1.57 K/UL ABSOLUTE MONOCYTES (test code = 1068) 0.53 K/UL ABSOLUTE EOSINOPHILS (test code = 1040) 0.06 K/UL ABSOLUTE BASOPHILS (test code = 1069) 0.02 K/UL ABS IMMATURE GRANULOCYTES (test code = 1020) 0.04 K/UL ABS NUCLEATED RBCS (test code = 42449) 0.00 K/UL BLOOD TYPE AND RH (test code = 3901) O POSITIVE ANTIBODY SCREEN (test code = 3902) NEGATIVE RUBELLA ANTIBODY SCREEN (test code = 4600) 398 IU/ML RUBELLA IgG INTERP (test code = 48255) REACTIVE HEPATITIS B SURF AG (test code = 2739) NON-REACTIVE RPR (test code = 84292) NON-REACTIVE RPR TITER (test code = 3500) NOT INDIC. TITER HIV 1/2 4TH GEN, RFLX CONF (test code = 3514) NON-REACTIVE HEPATITIS C REFLEX [id number] 00:00:00* Test Item Value Reference Range Interpretation Comme nts HEPATITIS C ANTIBODY (test c ode = 4659) NON-REACTIVE History and Physical Notes Date/Time Note Provider Source 2024-06-20 07:30:00 TRIAGE HISTORY & PHYSICAL IDENTIFYING DATA Mary Mariee is 23 year old, /White, 39w2d, female with SHIRIN 06/25/2024, by Ultrasound. : 2000 Primary Care Physician: Maddi Dempsey CHIEF COMPLAINT RLTCS HISTORY OF PRESENT ILLNESS Mary Mariee is a 23 year old female at 39w2d presenting for RLTCS. Reports good FM. Denies vaginal bleeding, LOF, or regular contractions. Denies symptoms of PreE. PAST OBSTETRIC HISTORY OB History Para Term AB Living 2 1 1 1 SAB IAB Ectopic Multiple Live Births 0 1 # Outcome Date GA Lbr David/2nd Weight Sex Type Anes PTL Lv 2 Current 1 Term 09/10/21 39w4d 2900 g F , L EPI N NE Complications: Other (See Comments) PAST MEDICAL HISTORY Problem list: Patient Active Problem List Diagnosis Date Noted Surgery, elective 06/20/2024 39 weeks gestation of 04/28/2024 High-risk in third trimester 12/30/2023 14 weeks gestation of 12/30/2023 Previous delivery affecting , antepartum 12/30/2023 Obesity (BMI 30-39.9) 11/26/2023 Operations: Past Surgical History: Procedure Laterality Date SECTION N/A 2021 Surgeon: Praful Shetty MD; Location: [facility] INSERT CERVICAL DILATOR 09/09/2021 Past Medical History: Diagnosis Date Anemia of mother in , antepartum 08/25/2021 CURRENT HEALTH STATUS Medications: Current Facility-Administered Medications Medication Dose Route Frequency Last Rate Last Admin ceFAZolin (ANCEF) 2,000 mg in NaCl 0.9% (NS) 100 mL MINI-BAG 2,000 mg IV Piggyback O.R. HOLDING ONCE lactated ringers IV infusion 1,000 mL 1,000 mL IV Infusion CONTINUOUS 125 mL/hr at 06/20/24 0701 1,000 mL at 06/20/24 0701 lactated ringers IV infusion 500 mL 500 mL IV Infusion ONCE sodium citrate-citric acid (BICITRA) 500-334 mg/5 mL solution 30 mL 30 mL Oral PRE-PROCEDURE ONCE Allergies and drug reactions: Patient has no known allergies. HOME MEDICATIONS Medications Prior to Admission Medication Sig Dispense Refill Last Dose ferrous sulfate 325 mg (65 mg iron) tablet Take 1 tablet by mouth in the morning. 30 tablet 2 Taking vit w/iron fumarate and FA ( VITAMIN WITH MINERALS) tablet Take 1 tablet by mouth in the morning. 30 tablet 4 Taking SOCIAL HISTORY Tobacco History: Social History Tobacco Use Smoking Status Never Smokeless Tobacco Never Drug History: Social History Substance and Sexual Activity Drug Use Never Alcohol History: Social History Substance and Sexual Activity Alcohol Use Never FAMILY HISTORY No family history on file. REVIEW OF SYSTEMS General: negative Constitutional: negative Eyes: negative ENT/Mouth: negative Cardiovascular: negative Respiratory: negative Gastrointestinal:negative Genitourinary: negative Musculoskeletal: negative Skin/breast: negative Neurological: negative Psychiatric: negative Endocrine: negative Hemat/Lymph: negative Allergic/Immuno:none VITAL SIGNS BP: (110-122)/(65-85) Temp: [36.9 ?C (98.5 ?F)] Temp source: Oral (06/20 06) Pulse: [95-108] Resp: [18] SpO2: [100 %] Height: [175.3 cm (5' 9")] Weight: [110.7 kg (244 lb)] BMI (calculated): [36.03] PHYSICAL EXAMINATIONS General: patient alert and in no acute distress HEENT: symmetric, negative for masses Lungs: unlabored breathing Cardiology: peripheral pulses intact and regular Abdomen: soft, non-tender, non-distended, no liver, spleen or abnormal masses palpated and Gravid Extremities: no clubbing, cyanosis, or edema Neuro: patient moving all extremities, no facial droop : deferred REVIEW OF LABORATORY, PATHOLOGY, AND RADIOLOGY DATA Lab results: Type & Screen HIV Hep B Syphilis Chlamydia ABO & RH Date Value Ref Range Status 06/19/2024 O POSITIVE Final No results found for: "HIVMULTIPLEX" No components found for: "HBSHBSAG" Syphilis IgG/IgM Date Value Ref Range Status 07/15/2021 Non-reactive Non-reactive Final C. trachomatis Nucleic Acid Date Value Ref Range Status 11/26/2023 Negative Negative Final IAT Date Value Ref Range Status 06/19/2024 Negative Final Varicella Rubella Glucose Group B Strep CBC VZV IgG antibody Date Value Ref Range Status 12/01/2023 Negative Negative Final Rubella screen IgG Date Value Ref Range Status 12/01/2023 Positive Negative Final GLUC 1 HR Date Value Ref Range Status 05/12/2024 144 120 - 170 mg/dL Final No results found for: "CGBS" HGB Date Value Ref Range Status 06/19/2024 10.7 (L) 11.6 - 15.0 g/dL Final HCT Date Value Ref Range Status 06/19/2024 33.8 (L) 35.7 - 45.2 % Final PLT Date Value Ref Range Status 06/19/2024 270 166 - 358 10*3/?L Final Active Hospital Problems Diagnosis Date Noted Surgery, elective 06/20/2024 39 weeks gestation of 04/28/2024 High-risk in third trimester 12/30/2023 Previous delivery affecting , antepartum 12/30/2023 Resolved Hospital Problems No resolved problems to display. Present on Admission: Surgery, elective ASSESSMENT AND PLAN Mary Mariee is a 23 year old at 39w2d who presents for RLTCS. RLTCS Prev C/s - Reports good FM. Denies vaginal bleeding, LOF, or regular contractions. Denies symptoms of PreE. - Prev C/s x1 in 2021, desires to proceed with RLTCS. - FHT Cat 1 upon arrival - [place]: irritability - Delivery consents signed 05/26/24 - Plan: Admit to L&D for RLTCS at 39w2d. MPDPS - Desires permanent sterilization - Consent signed: 03/24/24 - Patient reports wanting to proceed with BTL today. Antepartum course reviewed - 1 h elevated, 3 h wnl/A1C 5.6, sero neg, RI, VZVNI, O+/neg, GBS neg, Pap NIL 11/26/23 - H/H, plt: 10.7 / 33.8, 270 on 06/19/24 - PP contraception: BTL - PVT of Adum Fetus - Presentation on admission: cephalic on BSUS - EFW 77%ile, posterior fundal placenta on MFM US 04/28/24 - Normal anatomy scan, AFP neg, NIPT low risk, Horizon neg. Placenta Accreta Screening Prior ? : Yes Prior Uterine Surgery?: Yes Placenta low lying/previa in current ? : No Screening outcome: Negative screening. PLAN: Admit to L&D for RLTCS, salpingectomy at 39w2d. Torrie Ordonez MSN, MOUNTING MACHINE OPERATOR, FELT WASHING MACHINE TENDER-C Informed consent discussed with the patient, including: condition, proposed care, treatments and services, alternative forms of treatment, and risks of no treatment. Details discussed around the procedures to be used, and the risks and hazards involved, potential benefits, and side effects of the patient s proposed care, treatment, and services; the likelihood of the patient achieving his or her goals; and any potential problems that might occur during recuperation. Reasonable alternative also discussed with the patient s proposed care, treatment, and services. The discussion encompasses risks, benefits, and side effects related to the alternative and risks related to not receiving the proposed care, treatment, and services. Associated attestation - Debra Sloan MD - 06/20/2024 8:06 AM CDT I have seen and evaluated this patient at bedside and agree with SILK TRIMMER's H&P as written, will proceed with planned section with bilateral salpingectomy Debra Sloan MD 06/20/2024 8:02 AM [facility] Notes Date/Time Note Provider Source 2024-07-01 14:05:00 Regarding: Severe Pain on right side of Incision ----- Message from Patient Door Repairer Bus sent at 07/01/2024 2:03 PM CDT ----- Mary Mariee is a 23 year old female There is a painful bulge on the right side of her Incision. Pt is in severe pain. on 06/20/24 Juan Barcenas RN [facility] 2024-07-01 14:05:00 Adult Triage Assessment Last Clinic Visit: 06/27/24 nurses visit incision check Primary Symptom: "a bulge popped out above my c section" Onset / Duration: today Location / Description: size of golf ball Pain / Severity: 6 out of 10 Associated Symptoms: no symptoms with incision site Fever / Method: denies Hydration: no changes to I/O Treatment so far: none Effect on ADL's: some LMP: n/a Pre-existing condition / Immunocompromised: obesity, c section Reason for Disposition Severe pain in the incision Protocols used: - Incision Qlddposd-FRHPF-OE Nurse Note: after assessment, pt was instructed per protocol to go to ED for further evaluation. Pt verbalized understanding. [facility] Juan Barcenas RN [facility] 2024-06-22 12:25:43 Recieved fax from [employer]. Signed and faxed back. Title 19- BP KEILA SANTOYO RN 06/22/2024 12:25 PM T [facility] 2024-06-21 13:54:50 Problem: Pain Goal: Control of pain at or below patient's documented comfort goal Outcome: Adequate for discharge Problem: Falls, Risk of Goal: Absence of falls Outcome: Adequate for discharge Problem: Discharge Planning - Goal: Adequate for discharge Outcome: Adequate for discharge Goal: Mood stable Outcome: Adequate for discharge [facility] 2024-06-21 13:20:04 This note was copied from a baby's chart. Evaluation Situation Follow up visit Background Baby Boy is 1 days old, born weighing 3970g, and has lost 5.54% of weight. Gestational Age: 39w2d at FEEDING STATUS Formula supplementation via bottle MATERNAL STATUS Pumping Hand expressing Assessment & Recommendation ASSISTANCE Mom denies problems with or latching so far. Baby sleeping. Mom requested the use of a breast pump. Mom was set up with a breast pump and pumping instructions. education provided. All questions answered. Mom does not have any other questions or concerns at this time. Mom instructed on how to contact [employer] President for assistance with feedings or to answer questions while in the hospital. Mom verbalized understanding. Assessment (most recent) Assessment - 06/21/24 1315 General Information Visit Follow-up Mom's age (years) 23 years Gestational age 39 weeks 2 Parity 2 Living Children 2 Feeding plan Breast and Formula Breastfeed previously Yes Duration 2 weeks Used pump previously Yes Duration (weeks) 4 weeks plans As long as possible Breast Pump Ordered Delivery method Reason for previous Infant Oral Assessment Oral assessment No changes from previous assessment Date of 06/20/24 Time of 0894 Infant location Mother Baby Unit Breast Assessment Breast Assessment Initial Nipple & Areola Assessment Left Areola Pliable Right Areola Pliable Left Nipple Colostrum visible Right Nipple Colostrum visible Literature Resources Resources Understanding Mother and Baby Care Education Pump frequency;Storage of expressed breastmilk;Cleaning of pump parts;Labeling of expressed breastmilk;Transportation of expressed breastmilk;Warming of expressed breastmilk;Engorgement signs and treatment;Risks of mastitis and signs, seek medical attention immediately;On-demand feeds at least 8 or more over 24 hours Handouts given [place] [employer] Observation Pumping Yes Interventions Pump start (massage, compression, expression);Breast massage;Taught hand expression Mother demonstrated teach back of Breast massage and hand expression;Proper use of breast pump equipment Follow up Mom will call staff Recommended Feeding Plan Recommended feeding plan On-demand , 8-12 times in 24 hours not to exceed 6 hours between feeds;Frequent [id number] time with parents;Pump/hand express minimum 8 times in 24 hours including nights. Pump for 15-25 min. OTHER $ SERVICES Follow-up PRICE Chacon, RN, IBCLC Peg Alfonso RN [facility] 2024-06-20 19:58:31 Problem: Pain Goal: Control of pain at or below patient's documented comfort goal Outcome: Progressing as expected Problem: Falls, Risk of Goal: Absence of falls Outcome: Progressing as expected Problem: Discharge Planning - Goal: Adequate for discharge Outcome: Progressing as expected Goal: Mood stable Outcome: Progressing as expected Verna Mcfadden RN [facility] 2024-06-20 17:32:42 Problem: Intrapartum process (including labor pain) Goal: Reduction in pain sensation Outcome: Resolved Problem: Pain Goal: Reduction in pain sensation Outcome: Resolved Goal: Control of pain at or below patient's documented comfort goal Outcome: Progressing as expected Problem: Falls, Risk of Goal: Absence of falls Outcome: Progressing as expected Problem: Discharge Planning - Goal: Adequate for discharge Outcome: Progressing as expected Goal: Mood stable Outcome: Progressing as expected Sherley Osamn RN [facility] 2024-06-20 12:03:16 OB Delivery Note Delivery Date: 06/20/2024 Delivery Time: 8:47 AM 06/20/2024 Mary Mariee 23 year old presents for elective repeat section Review the Delivery Report for details. Gestational Age: 39w2d /Para: Labor Complications: None Estimated Blood Loss: 0 cc Delivery Type: , Low Transverse ROM to Delivery Time: (Delivered) Minutes: 1 [place] Sex: male Weight: 3970 g 1 Minute 5 Minute 10 Minute Totals: 8 9 Bob Mariee Mary [[id number]] Delivery Providers Delivering clinician: Debra Sloan MD Provider Role Faculty Fellow Residents Viviana Melgar, RN Primary RN Sherley Osman RN Additional RN Alexander Gold MD Anesthesiologist Faculty Neville Evangelista CRNA Anesthesiologist Resident Megan Rivera Machine Former Michelle Gama RN Additional RN Details Pre-Op Diagnosis: 1. Intrauterine at 39w2d 2. Previous section 3. Multiparity, desires permanent sterilization Post-Op Diagnosis: 1. Intrauterine at 39w2d 2. Previous section 3. Multiparity, desires permanent sterilization Indications: Previous Procedure: 1.Repeat , Low Transverse via pfannenstiel skin incision 2. Bilateral salpingectomy Anesthesia: Spinal Findings: Male delivered, weighing 3970 g. Normal uterus, tubes, and ovaries. Informed Consent: The risks, benefits, complications, and alternatives were discussed with the patient. The patient understood that the risks of section include, but are not limited to: injury to nearby structures or organs, infection, blood loss and possible need for transfusion, and potential need for more surgery including hysterectomy. The patient stated understanding and desired to proceed. All questions were answered. The site of surgery was properly noted and marked. The patient was identified as Mary Mariee and the procedure verified as a delivery. A Time Out was held and the above information confirmed. Procedure Details: The patient was taken to the operating room where Spinal anesthesia was found to be adequate. Antibiotics were given for infection prophylaxis. She was prepped and draped in the normal sterile fashion in the dorsal supine position with leftward tilt. A Pfannenstiel skin incision was made with scalpel along her old scar. The incision was carried down to the fascia with Bovie cauterization. The fascia was incised and extended laterally with Marley scissors. The inferior aspect of the fascia was grasped with Toney clamps. The underlying rectus and pyramidalis muscles were dissected off with Marley scissors. In a similar fashion, the superior aspect of the fascia was elevated with Toney clamps, and the rectus muscle was dissected off. The rectus muscles were sharply down the midline down to the level of the pubic symphysis. The peritoneum was identified and entered sharply. Peritoneal incision was extended superiorly and inferiorly with good visualization of the bladder. An Ben was inserted. The Bladder was found to be adherent to the NIK, these were taken down by sharp dissection and bladder flap created, pushing the bladder further away. The serosa of the bladder was denuded in the process. The lower uterine segment was then incised with a transverse incision and was extended bluntly. The amniotic sac was ruptured and Clear fluid noted. The bladder blade was removed and the infant was delivered atraumatically using the usual maneuvers. The remainder of the was delivered, the cord clamped and cut, and the baby was handed off to the awaiting nursery nurse. The placenta was removed via manual massage. The uterus was cleared of all clots and debris. The hysterotomy was repaired with suture of 0-Vicryl in a running locked fashion with good hemostasis observed. The ovaries and tubes appeared normal bilaterally. The uterine incision was reinspected and found to be hemostatic. The subfascial spaces were inspected and noted to be hemostatic. Ben was removed. Due to the denuded serosa, the bladder was back filled with sterile Milk to assess for integrity and no spillage was seen. The rectus muscle was re-approximated in the midline with 2-0 Monocryl using mattress suture The fascia was then reapproximated with running sutures of 0-Biosyn . The skin was closed with 4-0 Monocryl with subcuticular sutures. Uterotonics: Pitocin 30 units Hemostatic Agents: None PROCEDURE - BILATERAL SALPINGECTOMY The Uterus was exteriorized and the right fallopian tube was grasped with [place] forceps and followed out to distal end until the fimbria was visualized. Using the Ligature device, a routine salpingectomy was performed, removing the right fallopian tube. Good hemostasis observed. Using the same technique,the left fallopian tube was grasped with [place] forceps and followed out to distal end until the fimbria was visualized and the left tube remove. Good hemostasis was noted. The uterus was returned into the abdomen The patient tolerated the procedure well. Sponge, instrument, and needle counts were correct and the patient was taken to the recovery room in good and stable condition. Debra Sloan MD [facility] 2024-06-20 10:26:44 Recieved fax from [employer]. Signed and faxed back. Stocking and back brace title 19. [facility] [facility] 2024-06-20 09:20:00 Problem: Intrapartum process (including labor pain) Goal: Absence of or reduction of complications of labor 06/20/2024920 by Viviana Melgar RN Outcome: Resolved 06/20/2024613 by Viviana Melgar RN Outcome: Progressing as expected Goal: Able to cope with pain 06/20/2024920 by Viviana Melgar, FERMIN Outcome: Resolved 06/20/2024613 by Viviana Melgar RN Outcome: Progressing as expected Goal: Adequate to move to next level of care 06/20/2024920 by Viviana Melgar RN Outcome: Resolved 06/20/2024613 by Viviana Melgar RN Outcome: Progressing as expected Goal: Reduction in pain sensation 06/20/2024920 by Viviana Melgar RN Outcome: Progressing as expected 06/20/2024613 by Viviana Melgar RN Outcome: Progressing as expected Problem: Pain Goal: Reduction in pain sensation 06/20/2024920 by Viviana Melgar RN Outcome: Progressing as expected 06/20/2024613 by Viviana Melgar RN Outcome: Progressing as expected Goal: Control of pain at or below patient's documented comfort goal 06/20/2024920 by Viviana Melgar RN Outcome: Progressing as expected 06/20/2024613 by Viviana Melgar RN Outcome: Progressing as expected Problem: Falls, Risk of Goal: Absence of falls 06/20/2024920 by Viviana Melgar RN Outcome: Progressing as expected 06/20/2024613 by Viviana Melgar RN Outcome: Progressing as expected Problem: Discharge Planning - Goal: Adequate for discharge Outcome: Progressing as expected Sterling Melgar RN [facility] 2024-06-20 06:10:00 Problem: Intrapartum process (including labor pain) Goal: Absence of or reduction of complications of labor Outcome: Progressing as expected Goal: Able to cope with pain Outcome: Progressing as expected Goal: Adequate to move to next level of care Outcome: Progressing as expected Goal: Reduction in pain sensation Outcome: Progressing as expected Problem: Pain Goal: Reduction in pain sensation Outcome: Progressing as expected Goal: Control of pain at or below patient's documented comfort goal Outcome: Progressing as expected Problem: Falls, Risk of Goal: Absence of falls Outcome: Progressing as expected [facility] 2024-06-19 08:45:00 Images from the original note were not included. Venipuncture collection performed by clean technique on the right anticubitus. Total of 1 attempts were made. Slight pressure and a bandage/dressing were applied to the site(s). The patient experienced no complications. The following specimens were processed according to instructions and sent to [facility] laboratories per lab order on 06/19/2024: LT BLUE SST 2 RED 1 LAV 2 PPT DK GREEN (LiHep) DK GREEN (SodH) CHAMBERLAIN DK BLUE (K2) DK BLUE (S) ACD Blood Culture NIPT/NTD Pt was banded due to procedure tomorrow. Pt verified banding code with myself 2times and once on blood sample. Lily Cuevas 06/19/2024 8:51 AM [facility] 2024-06-16 16:00:00 Age: [age] year old GA: 38w5d 1. High-risk in third trimester 2. 38 weeks gestation of - No concerns - POCT Urinalysis w/o Specific [place] 3. Anemia of mother in , antepartum _ Continue Iron supplements 4. Previous delivery affecting , antepartum RLTCS with salpingectomy on 06/20 Procedure reviewed with patient and consent confirmed RTC 1 week post delivery for incision check Future Appointments In 1 week Nurse, [facility], [facility] Debra Sloan MD [facility] 2024-06-16 10:42:24 Recieved fax from [employer]. Signed and faxed back. Title 19- Emma SANTOYO RN 06/16/2024 10:42 AM Keila Santoyo RN [facility] 2024-06-09 13:45:00 Images from the original note were not included. Venipuncture collection performed by clean technique on the right anticubitus. Total of 1 attempts were made. Slight pressure and a bandage/dressing were applied to the site(s). The patient experienced no complications. The following specimens were processed according to instructions and sent to [facility] laboratories per lab order on 06/09/2024: LT BLUE SST RED LAV 1 PPT DK GREEN (LiHep) DK GREEN (SodH) CHAMBERLAIN DK BLUE (K2) DK BLUE (S) ACD Blood Culture NIPT/NTD [facility] [employer] 2024-06-09 08:45:00 Age: [age] year old GA: 37w5d ASSESSMENT: Mary Mariee is a 23 year old at 37w5d who presents for routine visit. Patient Active Problem List Diagnosis Obesity (BMI 30-39.9) High-risk in second trimester 14 weeks gestation of Previous delivery affecting , antepartum 31 weeks gestation of PLAN 1. High-risk in third trimester 2. 35 weeks gestation of - POCT Urinalysis w/o Specific [place]- negative protein and glucose - GROUP B STREPTOCOCCUS BY PCR; Future - GROUP B STREPTOCOCCUS BY PCR 3. Anemia of mother in , antepartum Continue with oral iron supplement- repeat CBC today 4. Previous delivery affecting , antepartum RLTCS with salpingectomy scheduled for 06/20, unless clinically indicated -Reviewed with patient [facility] Labor precautions reviewed with patient 1. If your water breaks(gush or a constant trickle). 2. Bleeding like your period. 3. If your baby's movements are less than 10 in an hour. 4. Contractions or pain that is continuous. She verbalized understanding --All questions answered RTC with Dr. Sloan in 1 week or prn Lori Amezcua DNP, MOUNTING MACHINE OPERATOR-BC 06/09/2024 at 9:36 AM [facility] [employer] 2024-05-26 13:00:00 Age: [age] year old GA: 35w5d 1. High-risk in third trimester 2. 35 weeks gestation of -C/o nose bleds- advised saline nasal spray, no picking of nostrils - Cbc with Diff; Future 3. Previous delivery affecting , antepartum - RLTCS with salpingectomy scheduled on 06/20 4. Anemia of mother in , antepartum - Continue Iron supplements as prescribed GEOVANY in 1 week or PRN Future Appointments In 1 week Debra Sloan MD [facility], [facility], [facility] Debra Sloan MD [facility] 2024-05-17 13:11:46 Pt called and would like a response sent to her MyChart She stated at last visit Dr. Sloan recommended some supplements for her cramping but she can't remember the name Clarissa Montero [facility] 2024-05-12 13:15:00 Age: [age] year old GA: 33w5d 1. High-risk in third trimester 2. 33 weeks gestation of Doing well PTL precautions and FKC's reviewed with patient Monitor for vaginal bleeding, loss of fluid, and/or contractions - Monitor for symptoms of preeclampsia (headache, visual disturbances, epigastric (under right ribs) pain, and increased blood pressure - If there is a perceived decrease in movement, monitor kick counts. Drink glass of water or juice and rest on left side for approximately two hours. If you feel 10 kicks (movements) over a period of two hours, this is normal. If you do not feel the fetus moving, present to OB clinic or antepartum unit at the [facility] - POCT Urinalysis w/o Specific [place] 3. Need for RSV vaccination - RSV, Bivalent, Protein Subunit RSVpreF, Diluent Reconstituted, 0.5 mL, PF, 60+ (Abrysvo) 4. Previous delivery affecting , antepartum - Scheduled RLTCS with salpingectomy on 10/22 5. Anemia of mother in , antepartum - Low hgb at 9.3 - Will start daily Ferrous sulphate - Ferrous sulfate 325 mg (65 mg iron) tablet GEOVANY in 2 weeks or PRN Future Appointments In 2 weeks Debra Sloan MD [facility] Debra Sloan MD [facility] 2024-05-12 08:00:00 Summary: labwork and 3hr GTT: FASTING DRAW Images from the original note were not included. Venipuncture collection performed by clean technique on the left anticubitus. Total of 1 attempts were made. Slight pressure and a bandage/dressing were applied to the site(s). The patient experienced no complications. The following specimens were processed according to instructions and sent to [facility] laboratories per lab order on 04/28/24: LT BLUE SST 1 RED 1 LAV 3 PPT DK GREEN (LiHep) DK GREEN (SodH) CHAMBERLAIN DK BLUE (K2) DK BLUE (S) ACD Blood Culture NIPT/NTD 100g of [place] Glucola given @0818 and finished at 0820. PAtient to be drawn around 0920, 1020, and 1120 [facility] 2024-04-28 11:00:00 Age: [age] year old GA: 31w5d 1. High-risk in third trimester 2. 31 weeks gestation of 3rd trimester teaching done- reviewed S/S of PTL (contractions, leakage of fluid and Vaginal bleeding) and also FKC. Also dicussed B-H, pelvic and lower back pains- expectations and differences with S/S of PTL She plans to breast feed BC options reviewed- BTL Peds: Alena - I discussed the risks, benefits and alternatives of laparoscopic bilateral Tubal Ligation with patent. Risks discussed included but not limited to infection, bleeding, need for transfusion of blood/blood products, injury to vital organs: bladder, bowel with possible further surgery and VTE She understands that the procedure is permanent, although reversal procedures can be preformed, these procedures are usually not successful and are not covered by most insurances.There is also approximately 30% risk of regret and this risk is higher in women who are younger than 30 years of age. We also discussed the failure rate of about about 0.75%, with an increased risk for ectopic should failure of tubal ligation occur. Alternatives discussed include: Oral Contraceptive Agents, Intrauterine Device, Nexplanon, Depo Provera, Ring, Patch, Condoms/foam, vasectomy of partner, or bilateral salpingectomy. Salpingectomy has been shown to decrease risk of ovarian cancer, similar to tubal ligation; however, no tubal reversal will be able to be done in the future and might be able to achieve with in vitro fertilization only. All questions answered, and patient expressed her desire to proceed with bilateral tubal ligation surgery and has opted for bilateral salpingectomy." - POCT Urinalysis w/o Specific [place] - FLU VACC ([id number]), 6 MO-64 YRS, .5ML, IM, TIV (FLUCELVAX) - TDAP VACCINE, >10 YRS, IM 3. Flu vaccine need - FLU VACC ([id number]), 6 MO-64 YRS, .5ML, IM, TIV (FLUCELVAX) 4. Need for Tdap vaccination - TDAP VACCINE, >10 YRS, IM 5. Abnormal maternal glucose tolerance, antepartum - 3hr GTT ordered 6. Previous delivery affecting , antepartum Low suspicion for PASD on follow up scan today Growth normal RLTCS at 39 wks GEOVANY in 2 weeks Future Appointments In 2 weeks 2, [facility] Lab [facility], [facility] In 2 weeks Debra Sloan MD [facility], [facility] Debra Sloan MD [facility] 2024-03-31 16:13:21 Woke up at 0400 with really "bad cramps in both my legs". 7/10 pain. All day. Does not come in go. Swelling/redness of arnold feet. Instructed pt to go to ER to be evaluated. Verbalized understanding. KEILA SANTOYO RN 03/31/2024 4:16 PM Keila Santoyo RN [facility] 2024-03-31 16:10:16 Lm on Vm for pt to return call. KEILA SANTOYO RN 03/31/2024 4:10 PM [facility] 2024-03-31 15:46:00 Patient was told to call if she gets any leg cramps and says it started earlier both legs. Dori Salvador [facility] 2024-03-24 11:00:00 Age: [age] year old GA: 26w5d ASSESSMENT: Mary Mariee is a 23 year old at 26w5d who presents for routine visit. Patient Active Problem List Diagnosis Obesity (BMI 30-39.9) High-risk in second trimester 14 weeks gestation of Previous delivery affecting , antepartum PLAN 1. High-risk in second trimester 2. 26 weeks gestation of - POCT Urinalysis w/o Specific [place]- negative protein and glucose 3. Previous delivery affecting , antepartum Pt desires repeat c/s and BTL - consent for BTL signed today 4. Abnormal maternal glucose tolerance, antepartum Abnl 1hr, 3hr gtt- wnl, A1C 5.6. Recommendation to repeat 3hr at 28 wk ( in 2 weeks) 5. Obesity (BMI 30-39.9) Discussed healthy diet and exercises during . Warm compress, ice, Tylenol, exercises to legs. Pt advised to stop at least [address] to stretch her legs. Risk for DVT discussed. Compressions socks encouraged. -Anatomy US done today - EFW- 79 %ile, Placenta posterior, not previa. There is inconclusive evidence of PASD today. F/U at 32 weeks was scheduled to reassess for signs of PASD. F/U scheduled: on 04/28/2023 - labor precautions reviewed -All questions answered F/u with Dr. Sloan in 4 weeks or prn Lori Amezcua DNP, MOUNTING MACHINE OPERATOR- 03/24/2024 at 11:05 AM [facility] 2024-01-28 11:45:00 Images from the original note were not included. Venipuncture collection performed by clean technique on the left anticubitus. Total of 1 attempts were made. Slight pressure and a bandage/dressing were applied to the site(s). The patient experienced no complications. The following specimens were processed according to instructions and sent to [facility] laboratories per lab order on 01/28/2024 : LT BLUE SST 1 RED LAV PPT DK GREEN (LiHep) DK GREEN (SodH) CHAMBERLAIN DK BLUE (K2) DK BLUE (S) ACD Blood Culture NIPT/NTD Only afp per pt request student zac performed venipuncture [facility] 2024-01-28 11:15:00 Age: [age] year old GA: 18w5d 1. High-risk in second trimester 2. 18 weeks gestation of - Doing well and has no concerns - POCT Urinalysis w/o Specific [place] - Alpha Fetoprotein-Maternal Ser; Future - CONSULT MATERNAL MEDICINE ULTRASOUND Multiple Gestation: No 3. Previous delivery affecting , antepartum - CONSULT MATERNAL MEDICINE ULTRASOUND Multiple Gestation: No 4. Other obesity affecting in second trimester Weight stable - CONSULT MATERNAL MEDICINE ULTRASOUND Multiple Gestation: No GEOVANY in [address] Sloan and with Lori Amezcua NP in 8 weeks Debra Sloan MD Future Appointments Provider Department Dept Phone 02/25/2024 1:00 PM Debra Sloan MD [facility] [phone] 03/24/2024 11:00 AM Lori Amezcua DNP [facility] [phone] [facility] 2024-01-28 11:15:00 Addended by: DEBRA SLOAN on: 02/02/2024 04:59 PM Modules accepted: Orders [facility] 2024-01-11 16:13:38 Received [employer] results via fax. Stamped and will be scanned/uploaded into pt's chart. KEILA SANTOYO RN 01/11/2024 4:13 PM Keila Santoyo RN [facility] 2024-01-06 14:14:26 Name and verified. Pt advised that GTT has not been reviewed. Once reviewed, we will call her with results. Verbalized understanding. KEILA SANTOYO RN 01/06/2024 2:14 PM Keila Santoyo RN [facility] 2024-01-06 13:37:10 Patient want to discuss her lab results. Dori Salvador [facility] 2024-01-05 15:37:13 Received [employer] results via fax. Stamped and will be scanned/uploaded into pt's chart. Mychart message sent. KEILA SANTOYO RN 01/05/2024 3:37 PM Keila Santoyo RN [facility] 2023-12-30 10:15:00 Loaded pt w 50gm fruit punch glucola, no issues. Draw time:1120 T [facility] 2023-12-30 10:15:00 Images from the original note were not included. Venipuncture collection performed by clean technique on the left anticubitus. Total of 1 attempts were made. Slight pressure and a bandage/dressing were applied to the site(s). The patient experienced no complications. The following specimens were processed according to instructions and sent to [facility] laboratories per lab order on 12/30/2023 : LT BLUE SST 1 RED 1 LAV PPT DK GREEN (LiHep) DK GREEN (SodH) CHAMBERLAIN DK BLUE (K2) DK BLUE (S) ACD Blood Culture NIPT/NTD Patient has been identified by and was provided with cup, antiseptic towelette, and clean catch instructions. 1 urine specimen(s) sent. Unpreserved Urine Culture 1 Aptima tube Other urine Sandrine collected T [facility] 2023-12-30 09:45:00 Age: [age] year old GA: 14w4d 1. High-risk in second trimester She has no concerns - NIPT with [employer] genetic carrier screening kid provide - vit w/iron fumarate and FA ( VITAMIN WITH MINERALS) tablet; Take 1 tablet by mouth in the morning. Dispense: 30 tablet; Refill: 4 2. 14 weeks gestation of - POCT Urinalysis w/o Specific [place] - vit w/iron fumarate and FA ( VITAMIN WITH MINERALS) tablet; Take 1 tablet by mouth in the morning. Dispense: 30 tablet; Refill: 4 3. Previous delivery affecting , antepartum - Undecided on mood of delivery Will discuss at later appointments 4. Obesity (BMI 30-39.9) 5. Other obesity affecting in second trimester Weightgain stable GEOVANY in [address] Sloan and in 8 weeks with Lori Amezcua Future Appointments Provider Department Dept Phone 01/28/2024 11:15 AM Debra Sloan MD [facility] [phone] 02/25/2024 3:00 PM Lori Amezcua DNP [facility] [phone] Debra Sloan MD [facility] 2023-12-01 10:00:00 Pt here just for blood work. All labs collected today [facility] 2023-11-26 14:30:00 Age: [age] year old GA: 9w5d NOB Mary Mariee is a 23 year old at unknown gestational age presents for Initial OB visit today. Patient has an IUD, a Mirena in situ, an reports amenorrhea so doesn't have an LMP. She found she was during a recent ER visit 4 weeks ago for bleeding hemorrhoids. Reports that a quick scan was performed in ER and she was told only a GS was seen and they could visualize her IUD Denies vaginal bleeding, abdominal pain or cramps. She reports some nausea but no vomiting. In a stable relationship and FOB is involved and supportive. She denies domestic violence/immediate partner violence. Sonogram confirmed an IUP at 9w5d gestation with an EDC of 06/25/2024 with the IUD visualized in the NIK/cervix Assessment/Plan High-risk in first trimester (primary encounter diagnosis) 9 weeks gestation of Missed period examination or test, positive result Discussed do's and don'ts of , safe foods, safe medications. NOB folder given We discussed course, labs, aneuploidy and genetic carrier screening and ultrasounds. Expectations for weight gain this include 20-25 pounds. Exercise in discussed and encouraged. aneuploidy options were reviewed including NIPT: cFDNA test and 2nd trimester QUAD screen. The benefits and short falls of these screening tests were reviewed. Also discussed diagnostic tests: CVS vs amniocentesis. She opted for NIPT Reviewed Zika virus precautions .Discussed about COVID-19/flu precautions. Social distancing, frequent hand washings, signs/symptoms for testing and to follow CDC recommendations discussed. I discussed the call schedule and that I deliver here at [facility]. I discussed that I have two partners, Dr. Shetty and Dr. Garcia and that they may deliver her or take care of her during her . I discussed that at [facility] we do not have a NICU, and that high risk pregnancies or deliveries less than 36 weeks will be transferred to [place]. All questions were answered. NOB labs today precautions reviewed Encouraged to call if have any additional questions or concerns. Plan: POCT Urinalysis w/o Specific [place], POCT Test, PAP Smear-Liquid Based, GC & CHLAMYDIA AMPLIFIED ASSAY, TRICHOMONAS AMPLIFIED ASSAY, PAP Smear-Liquid Based, GC & CHLAMYDIA AMPLIFIED ASSAY, TRICHOMONAS AMPLIFIED ASSAY, [facility] or [place] Only - Rpr, Cbc with Diff, Hcv Antibody, Hepatitis B Surface Antigen, Workup, Blood Bank, Rubella Screen IgG, VZV Antibody Screen, Urine Drug (Immunoassay) - Comprehensive Drug Screen, Urine Drug (Immunoassay) - Comprehensive Drug Screen with IUD in place, antepartum We reviewed the ultrasound findings - explained SIUP seen. IUD is seen in the NIK and cervix, away from the gestational sac I explained that evidence shows that if an IUD is removed at the early stages of , the risk of miscarriage and infection reduces and the chances of progression of normal increases with good outcome - Patient accepted for IUD removed with inconclusive viability, single or unspecified fetus Plan: OB Ultrasound Transvaginal Previous delivery affecting , antepartum -Emergency in for arrest of dilation -Undecided on mood of delivery. Will discuss at a later a appointment Encounter for removal of intrauterine contraceptive device (IUD) IUD REMOVAL PROCEDURE NOTE Preoperative Diagnoses: with IUD in place The risks, benefits and alternatives were discussed. The patient voiced her understanding. She wished to proceed and an informed consent was obtained. Patient has been identified by name and and will be undergoing IUD removal. Patient, procedure and site have been confirmed by the following clinicians: Debra Sloan MD Timeout performed by Debra Sloan MD Procedure: The patient is placed on the exam table in a lithotomy position. Vaginal speculum inserted. The cervix and IUD strings are visualized. IUD strings are grasped with the ring forceps and firm pressure applied to deliver the IUD through the cervical os. The patient experienced no cramping during removal. The vaginal speculum was removed. The patient tolerated the procedure well and there were no complications. Post-procedure instructions given. Patient verbalized understanding. Findings Intact IUD removed RTC in 4 weeks or PRN Total time: 30 minutes The time spent for patient care includes: Reviewing notes, performing a medically appropriate examination and/or evaluation, Counseling and educating the patient/family. Ordering medications, tests, or procedures and Documenting clinical information in the electronic or other health record. Debra Sloan MD 11/26/2023 11:47 PM [facility] 2023-11-12 16:03:02 Maddi Dempsey FNP at 11/11/2023 11:49 AM Status: Signed LANA DIANA appt today Documented in appt note that she is and needs to have IUD removed; reviewed [facility] records and noted nexplanon insertion october of 2022 Please follow-up with pt and notify that if she does have an IUD there is increased risk of ectopic ; provide with strong ER warnings And present to ER immediately if ANY pelvic pain or bleeding Recommend that she reschedule appt GHANSHYAM any location with any provider Pt contacted, identity verified. Notified of provider's recommendations as noted above. Pt reports she was seen in [facility] ER on 11/09/23, some of the lab results are in care everywhere. Beta HCG level was 47434.3 at that time. Pt reports that she went in for hemorrhoids and bleeding from her rectum and they wanted to do an xray and told her she was so they couldn't do the xray. Pt reports they then did a bedside ultrasound and told her they saw a gestational sac and a baby but didn't tell her how far along she was or anything else and said maybe her IUD had fallen out or it could still be in there. She stated she had a nexplanon inserted in 10/2022 and had it removed in 12/2022 and then had [facility] [place]. She said she was instructed by Alexx CHARLES to follow up with the dr that placed the IUD or an OBGYN. She stated that the dr who placed it told her they could not remove it or it could cause her to miscarry. Strong ER warnings given. Pt agrees to report to ER if ANY pelvic pain or bleeding and she is scheduled for new ob visit on 11/16/23 in our clinic. Declined sooner appointment. She agrees to keep that appt as well. Pt asking if she can take colace for hemorrhoids. Education provided on diet with fruits vegetables, increase activity and po hydration to promote regular bowel movements. Pt v/u, denies any other questions or concerns at this time. [facility] SAFE OVER THE COUNTER MEDICATION LIST FOR WOMEN Disclaimer: This content is reviewed periodically and is subject to change as new health information becomes available. The information provided is intended to be informative and educational and is not a replacement for professional medical evaluation, advice, diagnosis or treatment by a healthcare professional. Symptom Helpful Hints Over The Counter Medications Acne Benzyl Peroxide Back Pain Pillows (knees,back,abdomen) Support belt such as Mom-EZ Tylenol Cold/Flu/Cough Increase water intake. It is very important to stay well hydrated. Tylenol Cough Drops- Mucinex Vitamin C Robitussin (Plain) [place] Benadryl Honey Zyrtec (No Zinc Lozenges) Claritin Nasal Saline Josy Vinh's Vapor Rub Constipation Increase fluids (water and juice) Milk of Magnesia Benefiber Metamucil Dulcolax FiberCon Docusol Fiber Choice Colace Citrucel Correctol Miralax Diarrhea Avoid milk or milk products. Don't eat 4-6 hours, then drink clear liquids. (broth, apple juice) B.R.A.T.T. Diet (Bananas, Rice, Applesauce, [place], Tea) Imodium Kaopectate Gas Avoid spicy or fried foods. Gas X Gasaid Beano Mylanta Gas Headache or Migraine Rest in dark room. Massage neck and shoulders. Tylenol Tylenol PM Heartburn or Indigestion Small, frequent meals. Avoid spicy or fried foods. Mylanta or Gaviscon Nexium Pepcid AC Prilosec Tums Prevacid Maalox Hemmorrhoids Good fiber intake. Avoid constipation and excess straining during bowel movement. Preparation H Americaine Anusol Nupercaine Tucks Ointment Medicated Pads Nausea Small, frequent meals. Plain crackers before getting out of bed. Sprite, 7-Up, Marguerite Ilene Seabands (Bracelets) Unisom-Doxylamine B6 50 mg Sinus/Allergies Increase water intake. This will help thin the drainage for quicker relief. Claritin Vinh's Vapor Rub Benadryl Nasal Saline Tylenol Sinus Sleep Aid Warm (not hot) shower, warm decaffeinated tea. Benadryl Tylenol PM Sore Throat Decaffeinated Hot Tea (Honey) Tylenol Sore Throat Chloraseptic [place] Cepacol [place] Cough Drops Listed Above Aleida Diaz RN [facility] 2023-11-11 13:49:41 Maddi Dempsey FNP at 11/11/2023 11:49 AM Status: Signed LANA DIANA appt today Documented in appt note that she is and needs to have IUD removed; reviewed [facility] records and noted nexplanon insertion october of 2022 Please follow-up with pt and notify that if she does have an IUD there is increased risk of ectopic ; provide with strong ER warnings And present to ER immediately if ANY pelvic pain or bleeding Recommend that she reschedule appt GHANSHYAM any location with any provider Patient contacted. Reviewed above note with patient. Pt states she has reached out to the provider that inserted her IUD and advised IUD needs to be removed. Pt reports IUD Mirena inserted 12/2022; explain to pt any pelvic pain or bleeding present to ER immediately-recommend she reschedule appt GHANSHYAM; strong ER warnings given. Pt verbalized understanding. Anastacio Barber RN [facility]
[2024-07-01 15:14] LABS: Absolute Eosinophils 0.4 K/uL (0-0.5); Absolute Lymphocytes (CBC) 1.6 K/uL (0.7-4.9); Absolute Monocytes 0.6 K/uL (0.1-1.3); Absolute Neutrophil 6.2 K/uL (1.8-8.0); Basophils % 0.5 % (0-1.3); Eosinophils % 4.4 % (0-4.4); Hematocrit 39.1 % (36.0-45.0); Hemoglobin 12.6 g/dL (12.0-15.0); Lymphocytes % 18.3 % (15.3-44.8); MCH 26.6 pg (27.0-35.0); MCHC 32.2 g/dL (32.0-36.0); MCV 82.7 fL (80-100); MPV 8.8 fL (7.6-11.3); Monocytes % 6.8 % (3.3-12.3); Platelets 347 thou/uL (152-406); RBC Red Blood Cell Count 4.73 M/uL (3.86-4.86); Red Cell Distribution Width 16.3 % (12.1-15.2)
[2024-07-01] MEDS ORDERED: NA CHLORIDE 0.9% 1,000 ML ONE (15:15)
[2024-07-01] MEDS ORDERED: FAMOTIDINE 20 MG/2 ML VIAL IV ONE (15:15)
[2024-07-01 15:31] LABS: Albumin 3.1 g/dL (3.4-5.0); Albumin/Globulin Ratio 0.7 (1.1-1.8); Anion Gap 7.8 mEq/L (5.0-15.0); Bilirubin Total 0.4 mg/dL (0.2-1.0); Globulin 4.4 g/dL (2.3-3.5); Potassium 3.8 mEq/L (3.5-5.1); Protein, Total 7.5 g/dL (6.4-8.2)
--- NOTE | 2024-07-01 15:34 | RAD REPORT ---
EXAM: Right lower quadrant ultrasound. CLINICAL HISTORY: s/p c/s, need to assess for seroma at right lower ;Abd pain COMPARISON: None. FINDINGS: Small indeterminant fluid collection is seen in the area of interest measuring 2.7 x 1.0 cm . This may represent a seroma or abscess the patient has corresponding clinical presentation.
--- NOTE | 2024-07-01 15:39 | ER ---
Nurse's Notes [facility] Name: Elizabeth Mariee Age: 23 yrs Sex: Female : 2000 Arrival Date: 07/01/2024 Time: 14:42 Bed 18 Private MD: Diagnosis: Postprocedural seroma of skin and subcutaneous tissue following other procedure Presentation: 07/01 14:48 Chief complaint: Patient states: last night had a sharp pain above my site iw and today there is a knot the size of a golf ball on right side. Coronavirus screen: At this time, the client does not indicate any symptoms associated with coronavirus-19. Ebola Screen: No symptoms or risks identified at this time. Initial Sepsis Screen: Does the patient meet any 2 criteria? No. Patient's initial sepsis screen is negative. Does the patient have a suspected source of infection? No. Patient's initial sepsis screen is negative. Risk Assessment: Do you want to hurt yourself or someone else? Patient reports no desire to harm self or others. Onset of symptoms was July 01, 2024. 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 - Infectious Disease History:: Denies. - Social history:: Smoking status: Patient denies any tobacco usage or history of. Screenin:57 [facility] ED Fall Risk Assessment (Adult) History of falling in the last 3 months, me1 including since admission No falls in past 3 months (0 pts) Confusion or Disorientation No (0 pts) Intoxicated or Sedated No (0 pts) Impaired Gait No (0 pts) Mobility Assist Device Used No (0 pt) Altered Elimination No (0 pt) Score/Fall Risk Level 0 - 2 = Low Risk Maintained a safe environment, Provided non-skid footwear, Hourly rounding (assess needs \T\ fall precautionary measures) done. Abuse screen: Denies threats or abuse. Nutritional screening: No deficits noted. Tuberculosis screening: No symptoms or risk factors identified. Assessment: 14:57 General: Appears comfortable, well groomed, well developed, well nourished, Behavior is me1 calm, cooperative, appropriate for age, Reports last night had a sharp pain above my site and today there is a knot the size of a golf ball on right side. Pain: Complains of pain in right lower quadrant Pain does not radiate. Pain currently is 4 out of 10 on a pain scale. Quality of pain is described as aching, Pain began suddenly, Is continuous. Neuro: Level of Consciousness is awake, alert, obeys commands, Oriented to person, place, time, situation, Appropriate for age. Cardiovascular: Patient's skin is warm and dry. Respiratory: Airway is patent Respiratory effort is even, unlabored, Respiratory pattern is regular, symmetrical. GI: Abdomen is round non-distended, Bowel sounds present X 4 quads. Abd is soft and non tender X 4 quads. : Reports vaginal bleeding that is light flow. EENT: No signs and/or symptoms were reported regarding the EENT system. Derm: Skin is intact, is healthy with good turgor, Skin is pink, warm \T\ dry. Musculoskeletal: No signs and/or symptoms reported regarding the musculoskeletal system. Vital Signs: 14:48 BP 132 / 99; Pulse 83; Resp 16; Temp 98.1(O); Pulse Ox 98% ; Weight 102.06 kg; Height 5 iw ft. 9 in. ; 15:30 BP 111 / 87; Pulse 68; Resp 16; Pulse Ox 98% ; me1 14:48 Body Mass Index 33.23 (102.06 kg, 175.26 cm) iw ED Course: 14:44 Patient arrived in ED. im 14:48 Domonique Noonan [facility]C [facility] snw 14:48 Chato Ayala MD is Attending Physician. snw 14:49 Triage completed. iw 14:50 Arm band placed on. iw 14:53 Katelynn Vernon, FERMIN is Primary Nurse. me1 14:57 Patient has correct armband on for positive identification. Bed in low position. Call me1 light in reach. Side rails up X 1. Provided Education on: POC. Verbalized understanding.. Client placed on continuous cardiac and pulse oximetry monitoring. NIBP monitoring applied. Pulse ox on. NIBP on. 14:57 No provider procedures requiring assistance completed. me1 15:09 CBC with Diff Sent. me1 15:10 CMP Sent. me1 15:10 Initial lab(s) drawn, by me, sent to lab. Inserted saline lock: 22 gauge in right me1 antecubital area, using aseptic technique. 15:25 US Abdomen Limited In Process Unspecified. EDMS 15:54 IV discontinued, intact, bleeding controlled, No redness/swelling at site. Pressure me1 dressing applied. Administered Medications: 15:25 Drug: Famotidine IVP 20 mg IVP once; dilute with 10 mL 0.9% NaCl; give over 2 minutes me1 Route: IVP; Site: right antecubital; 15:25 Follow up: Response: No adverse reaction me1 15:25 Drug: NS 0.9% IV 1000 ml IV at 1 bolus Per protocol; to be given as a bolus over 60 me1 minutes Route: IV; Rate: 1 bolus; Site: right antecubital; 15:47 Follow up: Response: No adverse reaction; IV Status: Completed infusion; IV Intake: me1 1000ml 15:45 Drug: Ketorolac IVP 30 mg IVP once Route: IVP; Site: right antecubital; me1 15:46 Follow up: Response: No adverse reaction; Pain is decreased me1 Medication: 14:57 VIS not applicable for this client. me1 Intake: 15:47 IV: 1000ml; Total: 1000ml. me1 Outcome: 15:39 Discharge ordered by . ya 15:54 Discharged to home ambulatory, with significant other, me1 15:54 Condition: stable 15:54 Discharge instructions given to patient, significant other, Instructed on discharge instructions, follow up and referral plans. medication usage, Demonstrated understanding of instructions, follow-up care, medications, Prescriptions given X 1, 15:54 Patient left the ED. me1 Signatures: Dispatcher [employer] Domonique Lee, GAS PLUMBER-C GAS PLUMBER-Csnw Jeanie Masters RN RN Rohini Hoyt Michelle, RN RN me1 Corrections: (The following items were deleted from the chart) 14:56 14:48 BP 132 / 99; Pulse 83bpm; Resp 16bpm; Pulse Ox 98%; 102.06 kg; Height 5 ft. 9 iw in.; BMI: 33.2; iw 14:57 14:48 Chief complaint: Patient states: last night had a sharp pain above my me1 site and today there is a knot the size of a golf ball on right side iw 15:38 15:30 BP 121 / 86; Pulse 107bpm; Resp 17bpm; Pulse Ox 100%; me1 me1 15:43 15:30 BP 104 / 80; Pulse 66bpm; Resp 16bpm; Pulse Ox 98%; me1 me1
--- NOTE | 2024-07-01 15:39 | EDPHYS ---
Physician Documentation [facility] Name: Elizabeth Mariee Age: 23 yrs Sex: Female : 2000 Arrival Date: 07/01/2024 Time: 14:42 Bed 18 Private MD: ED Physician Chato Ayala HPI: 07/01 15:01 This 23 yrs old Female presents to ER via Ambulatory with complaints of 10 snw days post , Abdominal Pain, abdominal lump. 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 - Infectious Disease History:: Denies. - Social history:: Smoking status: Patient denies any tobacco usage or history of. ROS: 14:58 Constitutional: Negative for fever, chills, and weight loss, Eyes: Negative for injury, snw pain, redness, and discharge, ENT: Negative for injury, pain, and discharge, Neck: Negative for injury, pain, and swelling, Cardiovascular: Negative for chest pain, palpitations, and edema, Respiratory: Negative for shortness of breath, cough, wheezing, and pleuritic chest pain, Back: Negative for injury and pain, : Negative for injury, bleeding, discharge, and swelling, MS/Extremity: Negative for injury and deformity, Skin: Negative for injury, rash, and discoloration, Neuro: Negative for headache, weakness, numbness, tingling, and seizure, Psych: Negative for depression, anxiety, suicide ideation, homicidal ideation, and hallucinations, 14:58 Abdomen/GI: Positive for abdominal pain, of the right lower quadrant, denies fever, leg pain, breast pain, redness. Uncomplicated 2nd C/S. no abx, no increased length of stay, Exam: 14:58 Constitutional: This is a well developed, well nourished patient who is awake, alert, snw and in no acute distress. Head/Face: Normocephalic, atraumatic. Eyes: Pupils equal round and reactive to light, extra-ocular motions intact. Lids and lashes normal. Conjunctiva and sclera are non-icteric and not injected. Cornea within normal limits. Periorbital areas with no swelling, redness, or edema. ENT: Nares patent. No nasal discharge, no septal abnormalities noted. Tympanic membranes are normal and external auditory canals are clear. Oropharynx with no redness, swelling, or masses, exudates, or evidence of obstruction, uvula midline. Mucous membranes moist. Neck: Trachea midline, no thyromegaly or masses palpated, and no cervical lymphadenopathy. Supple, full range of motion without nuchal rigidity, or vertebral point tenderness. No Meningismus. Chest/axilla: Normal chest wall appearance and motion. Nontender with no deformity. No lesions are appreciated. Cardiovascular: Regular rate and rhythm with a normal S1 and S2. No gallops, murmurs, or rubs. Normal PMI, no JVD. No pulse deficits. Respiratory: Lungs have equal breath sounds bilaterally, clear to auscultation and percussion. No rales, rhonchi or wheezes noted. No increased work of breathing, no retractions or nasal flaring. Back: No spinal tenderness. No costovertebral tenderness. Full range of motion. Skin: Warm, dry with normal turgor. Normal color with no rashes, no lesions, and no evidence of cellulitis. MS/ Extremity: Pulses equal, no cyanosis. Neurovascular intact. Full, normal range of motion. Neuro: Awake and alert, GCS 15, oriented to person, place, time, and situation. Cranial nerves II-XII grossly intact. Motor strength 5/5 in all extremities. Sensory grossly intact. Cerebellar exam normal. Normal gait. Psych: Awake, alert, with orientation to person, place and time. Behavior, mood, and affect are within normal limits. 14:58 Abdomen/GI: Inspection: healing C/S incision, no discharge, noted tender area and RLQ "lump" just proximal and lateral to incision. , Palpation: mild abdominal tenderness, moderate abdominal tenderness, at area of concern, Vital Signs: 14:48 BP 132 / 99; Pulse 83; Resp 16; Temp 98.1(O); Pulse Ox 98% ; Weight 102.06 kg; Height 5 iw ft. 9 in. ; 15:30 BP 111 / 87; Pulse 68; Resp 16; Pulse Ox 98% ; me1 14:48 Body Mass Index 33.23 (102.06 kg, 175.26 cm) iw MDM: 15:13 Medical Screening Exam initiated snw 15:40 Differential diagnosis: cervicitis, nonspecific abdominal pain, seroma, abscess. Data snw reviewed: vital signs, nurses notes, lab test result(s), radiologic studies, ultrasound. I considered the following discharge prescriptions or medication management in the emergency department Medications were administered in the Emergency Department. See MAR. Counseling: I had a detailed discussion with the patient and/or guardian regarding the historical points, exam findings, and any diagnostic results supporting the discharge/admit diagnosis, lab results, radiology results, the need for outpatient follow up, to return to the emergency department if symptoms worsen or persist or if there are any questions or concerns that arise at home. Response to treatment: the patient's symptoms have mildly improved after treatment. Special discussion: Based on the patient's Hx, exam, and Dx evaluation, there is no indication for emergent surgery or inpatient Tx. It is understood by the patient/guardian that if the Sx's persist or worsen they need to return immediately for re-evaluation. Based on the history and exam findings, there is no indication for further emergent testing or inpatient evaluation. I discussed with the patient/guardian the need to see the OB Gyne specialist for further evaluation of the symptoms. 07/01 14:58 Order name: CBC with Diff; Complete Time: 15:24 snw 07/01 14:58 Order name: CMP; Complete Time: 15:38 snw 07/01 14:58 Order name: US Abdomen Limited; Complete Time: 15:38 snw 07/01 14:58 Order name: IV Saline Lock; Complete Time: 15:09 snw 07/01 14:58 Order name: Labs collected and sent; Complete Time: 15:09 snw Administered Medications: 15:25 Drug: Famotidine IVP 20 mg IVP once; dilute with 10 mL 0.9% NaCl; give over 2 minutes me1 Route: IVP; Site: right antecubital; 15:25 Follow up: Response: No adverse reaction me1 15:25 Drug: NS 0.9% IV 1000 ml IV at 1 bolus Per protocol; to be given as a bolus over 60 me1 minutes Route: IV; Rate: 1 bolus; Site: right antecubital; 15:47 Follow up: Response: No adverse reaction; IV Status: Completed infusion; IV Intake: me1 1000ml 15:45 Drug: Ketorolac IVP 30 mg IVP once Route: IVP; Site: right antecubital; me1 15:46 Follow up: Response: No adverse reaction; Pain is decreased me1 Disposition Summary: 07/01/24 15:39 Discharge Ordered Notes: Location: Home snw Condition: Stable snw Diagnosis - Postprocedural seroma of skin and subcutaneous tissue following other procedure snw Followup: snw - With: Emergency Department - When: As needed - Reason: Worsening of condition Followup: snw - With: Private Physician - When: 2 - 3 days - Reason: Recheck today's complaints, Continuance of care, Re-evaluation by your physician Discharge Instructions: - Discharge Summary Sheet snw - Care After Delivery snw - Seroma snw - Rehydration, Adult snw Forms: - Medication Reconciliation Form snw - Antibiotic Education snw - Prescription Opioid Use snw - Patient Portal Instructions snw - Leadership Thank You Letter snw Prescriptions: - Mobic 7.5 mg Oral Tablet - take 1 tablet ORAL route once daily take with food; 20 tablet; Refills: 0, snw Product Selection Permitted Signatures: Dispatcher [employer] EDMS Domonique Noonan FNP-Erwin ROLLER LEVELER OPERATOR-Csnw Jeanie Masters, RN RN iw Katelynn Vernon, FERMIN RN me1 Corrections: (The following items were deleted from the chart) 14:58 14:58 CBC+H.LAB.BRZ ordered. EDMS EDMS 14:58 14:58 COMPREHENSIVE METABOLIC PANEL+C.LAB.BRZ ordered. EDMS EDMS 14:58 14:58 Abdomen Limited+US.RAD.BRZ ordered. EDMS EDMS
[2024-07-01] MEDS ORDERED: KETOROLAC 30 MG/ML INJ ONE (15:44)
[2024-07-01 16:00] VITALS: TEMP 98.1; O2SAT 98
[2024-07-01 16:06] VITALS: BP 111/87
== END 2024-07-01 15:54 | disposition home or self-care (01) ==
LOC: ER 14:42
DX: L76.34 Postprocedural seroma of skin and subcutaneous tissue following other procedure (principal)
CPT/HCPCS: 85025; 36415; 80053; 76705; 96375; 96374; 99284; J7030